=== PATIENT | female | born 1955 | race Caucasian/White ===

== ENCOUNTER 2021-06-15 07:49 | Outpatient (CLI) | payer MEDICARE, SELFPAY ==
[2021-06-15 08:05] VITALS: BP 119/75; PULSE 84; RESP 20; TEMP 36.6; O2SAT 95; BMI 36.0
[2021-06-15 08:34] VITALS: BP 102/68; PULSE 68; RESP 16; TEMP 36.7; O2SAT 96
[2021-06-15 09:39] VITALS: BP 113/75; PULSE 67; RESP 16; TEMP 36.6
== END 2021-06-15 09:39 | disposition home or self-care (01) ==
LOC: OPS 07:51
PROVIDERS: Visit Provider Hospitalist
DX: U07.1 COVID-19 (principal)
CPT/HCPCS: 96365

== ENCOUNTER 2021-12-11 10:08 | Outpatient (CLI) | payer MEDICARE, MEDICAID, SELFPAY ==
--- NOTE | 2021-12-11 10:21 | XR_ITS ---
WS: [id number] Exam: XR shoulder RT min 2V* [id number] Date/Time of Exam: 12/11/2021 10:23 AM Reason For Exam: R SHOULDER PAIN No fracture or dislocation. There are 2 anchoring screws in the humeral head. DJD and spurring at the AC joint. Normal soft tissues. XR/XR shoulder RT min 2V* [id number] IMPRESSION: 1. No fracture or dislocation. 2. Degenerative change and spurring of the inferior margin of the distal clavic le and acromion.
== END 2021-12-11 10:09 | disposition home or self-care (01) ==
LOC: RAD 10:14
PROVIDERS: PCP Nurse Practitioner Family; Visit Provider Nurse Practitioner Family
DX: M25.511 Pain in right shoulder (principal)
CPT/HCPCS: 73030

== ENCOUNTER 2022-01-21 09:27 | Emergency (ER) | payer MEDICARE, MEDICAID, SELFPAY ==
[2022-01-21 09:38] VITALS: BP 144/104; PULSE 85; RESP 18; TEMP 36.6; O2SAT 97; BMI 39.4
--- NOTE | 2022-01-21 09:40 | W.ED.GENADLT ---
HPI - General Adult General: Chief complaint: Neuro Symptoms/Deficit Stated complaint: arm weakness/trouble walking/confusion/headaches Time Seen by Provider: 01/21/22 09:40 Source: patient Mode of arrival: ambulatory Limitations: no limitations History of Present Illness: 66-year-old female presents emergency room she states she has a history of MS states also multiple previous strokes. She is convinced she had a stroke 3 days ago with the symptoms are going away she says she usually has strokes and the symptoms will go away and she just ignores them. She not had any chest pain. She does not have any focal neurologic deficits at this point she said she had some left-sided facial droop and left-sided weakness although today when she presents here none of that is present. Onset (ago): day(s) (3) Location: face, left, upper extremity and lower extremity Severity: mild Relieving factors: none Exacerbating factors: none Associated symptoms: Deny chest pain, confusion, cough, diaphoresis, decreased appetite, dyspnea, fevers/chills, headache(s), malaise, nausea, rash, palpitations, seizures, short of breath, syncope, vomiting or weakness Treatments prior to arrival: none Review of Systems Const: Denies: malaise or diaphoresis ENMT: Denies: throat pain, ear or mastoid pain, nasal discharge or nasal congestion Card: Denies: chest pain, palpitations or syncope Resp: Denies: dyspnea GI: Denies: nausea or vomiting : Denies: flank pain, difficulty voiding, dysuria, urinary frequency or urinary urgency Skin/Breast: Denies: rash Neuro: Denies: headache(s) or confusion Physical Exam Const: COMMON NORMALS: no acute distress GENERAL APPEARANCE: cooperative and comfortable ORIENTATION/CONSCIOUSNESS: Yes awake, Yes oriented to person, Yes oriented to place and Yes oriented to time HENMT: COMMON NORMALS: normocephalic, atraumatic and hearing grossly normal bilaterally HEAD & SCALP: normocephalic and atraumatic Neck/C-Spine: COMMON NORMALS: no JVD Resp: COMMON NORMALS: normal respiratory effort, No retractions, No use of accessory muscles and clear to auscultation bilaterally AUSCULTATION: clear to auscultation bilaterally Cardio: COMMON NORMALS: no JVD, regular rate, regular rhythm and No murmurs present (Cardio) RATE: regular rate RHYTHM: regular rhythm GI: COMMON NORMALS: Soft to palpation and No hepatosplenomegaly present AUSCULTATION: Yes normoactive bowel sounds PALPATION: Yes Soft to palpation, No Tenderness to palpation present (GI), No Guarding due to palpation present (GI) and Yes No hepatosplenomegaly present Extremity: COMMON NORMALS: normal to inspection, capillary refill normal, no clubbing, cyanosis or edema, no calf tenderness and no pedal edema Neuro: SENSORIUM/ORIENTATION: Yes oriented to person, Yes oriented to place and Yes oriented to time Skin: COMMON NORMALS: no rashes or lesions noted GENERAL SKIN EXAM: no rashes or lesions noted Course Vital Signs: Vital signs: Vital Signs Temperature 97.9 F 01/21/22 09:38 Pulse Rate 84 01/21/22 09:49 Respiratory Rate 16 01/21/22 09:49 Blood Pressure 144/104 01/21/22 09:49 Pulse Oximetry 98 01/21/22 09:49 [facility] - General Adult Medical Decision Making No focal neurologic deficits noted CT normal repeat exam remains completely intact with no abnormalities. We will go ahead and discharge patient home follow-up with primary care if patient is still having issues could consider advanced imaging she is already on statin and clopidogrel. Another consideration would be stopping the hormone replacement. Medical Records I reviewed the patient's medical records. Lab Data I reviewed the patient's lab results. : 01/21/22 09:44 01/21/22 10:[address] 01/21/22 09:42 IMPRESSION: 1. No evidence of intracranial hemorrhage or mass effect. 2. Mild small vessel changes. Mild parenchymal volume loss. 3. Small chronic appearing lacunar infarct RIGHT thalamus. 4. No acute intracranial findings. Laboratory Results WBC 5.5 10^3/uL (4.0-10.0) 01/21/22 09:44 RBC 3.90 10^6/uL (4.1-5.3) L 01/21/22 09:44 Hgb 13.1 g/dL (11.5-15.3) 01/21/22 09:44 Hct 38.9 % (37.0-47.0) 01/21/22 09:44 MCV 99.7 fl (81-99) H 01/21/22 09:44 MCH 33.6 pg (28.0-34.0) 01/21/22 09:44 MCHC 33.7 g/dL (30.0-36.0) 01/21/22 09:44 RDW 16.3 % (12.1-15.1) H 01/21/22 09:44 Plt Count 226 10^3/cmm (130-400) 01/21/22 09:44 MPV 10.5 fL (7.4-10.4) H 01/21/22 09:44 Neut % (Auto) 57.2 % 01/21/22 09:44 Lymph % (Auto) 32.8 % 01/21/22 09:44 Pen[place] % (Auto) 7.3 % 01/21/22 09:44 Eos % (Auto) 1.6 % 01/21/22 09:44 Baso % (Auto) 0.9 % 01/21/22 09:44 Neut # (Auto) 3.14 10^3/uL (1.8-7.7) 01/21/22 09:44 Lymph # (Auto) 1.8 10^3/uL (0.8-4.8) 01/21/22 09:44 [place] # (Auto) 0.4 10^3/uL (0.2-0.9) 01/21/22 09:44 Eos # (Auto) 0.1 10^3/uL (0.0-0.8) 01/21/22 09:44 Baso # (Auto) 0.1 10^3/uL (0.0-0.1) 01/21/22 09:44 Nucleated RBC % (auto) 0 % 01/21/22 09:44 Nucleated RBCs # 0.0 /100WBC 01/21/22 09:44 Sodium 142 mmol/L (136-145) 01/21/22 10:44 Potassium 4.2 mmol/L (3.5-5.1) 01/21/22 10:44 Chloride 109 mmol/L (98-107) H 01/21/22 10:44 Carbon Dioxide 24 mmol/L (22-29) 01/21/22 10:44 Anion Gap 13.2 (5-19) 01/21/22 10:44 BUN 27 mg/dL (8-23) H 01/21/22 10:44 Creatinine 1.1 mg/dL (0.5-0.9) H 01/21/22 10:44 GFR Calculation 50.0 mL/min (90-130) L 01/21/22 10:44 Glucose 96 mg/dL (65-115) 01/21/22 10:44 Calculated Osmolality 299 mOsm/kg (285-295) H 01/21/22 10:44 Calcium 9.6 mg/dL (8.5-10.5) 01/21/22 10:44 Total Bilirubin 0.2 mg/dL (0.15-1.2) 01/21/22 10:44 AST 19 U/L (0-32) 01/21/22 10:44 ALT 14 U/L (0-33) 01/21/22 10:44 Alkaline Phosphatase 95 IU/L (35-105) 01/21/22 10:44 Total Protein 6.9 g/dL (6.6-8.7) 01/21/22 10:44 Albumin 4.3 g/dL (3.5-5.2) 01/21/22 10:44 Globulin 2.6 g/dL (1.3-4.6) 01/21/22 10:44 Discharge Plan Discharge Patient Disposition: Home Clinical Impression: History of CVA (cerebrovascular accident) Condition: Stable Prescriptions: No Action multivitamin Tablet 1 tab PO QPM 0RF atorvastatin 40 mg tablet 40 mg PO QPM 0RF Sleep Aid (diphenhydramine) 50 mg Capsule 100 mg PO BEDTIME 0RF loperamide 2 mg capsule 2 mg PO Q4H PRN (Reason: Diarrhea) 0RF clopidogrel 75 mg tablet 75 mg PO QPM 0RF Tylenol Arthritis Pain 650 mg Tablet Extended Release 1,950 mg PO QID PRN (Reason: Pain) 0RF topiramate 25 mg capsule, sprinkle 25 mg PO QPM 0RF ropinirole 0.25 mg tablet 0.25 mg PO BEDTIME 0RF pantoprazole 40 mg tablet,delayed release (DR/EC) 40 mg PO QPM 0RF gabapentin 300 mg capsule 600 mg PO BEDTIME 0RF sertraline 25 mg tablet 25 mg PO QAM 0RF hydroxyzine HCl 25 mg tablet 25 mg PO BEDTIME 0RF metoprolol succinate 25 mg tablet extended release 24 hr 25 mg PO QPM 0RF Prempro 0.45-1.5 mg tablet 1 tab PO QPM 0RF Calcium Citrate + D 315 mg-5 mcg (200 unit) Tablet 2 tab PO QPM 0RF pregabalin 75 mg capsule 75 mg PO BID 0RF Discharge Orders: Discharge ED (Routine); Ordered 01/21/22 Ordered By: Tyler Edouard Referrals: Salma Carrasco NP [Primary Care Provider] - Patient Instructions: Opioid Safety Coding Level of Care Code ED Card Grinder for Dariusg Kevin NIH stroke score NIHSS Level Of Consciousness - 1a: 0 Level Of Consciousness Questions - 1b: Both Correct Level Of Consciousness Commands - 1c: Both Correct Best Gaze - 2: Normal Visual Fuentes - 3: No Visual Loss Facial Palsy - 4: Normal Motor Arm Right - 5: No Drift Motor Arm Left - 5: No Drift Motor Leg Right - 6: No Drift Motor Leg Left - 6: No Drift Limb Ataxia - 7: Absent Sensory - 8: Normal Best Language - 9: No Aphasia Dysarthia - 10: Normal Extinction And Inattention - 11: 0 Score Total Score: 0
--- NOTE | 2022-01-21 09:42 | CT_ITS ---
WS: [id number] CT HEAD TECHNIQUE: Noncontrast CT of the head obtained from the skullbase to the vertex. CLINICAL INFORMATION: fall/closed head injury COMPARISON: None. DLP: 1700.[address] scans at [facility] use at least one of these dose optimization techniques: automated e xposure control; mA and/or kV adjustment per patient size (includes targeted exams where dose is matc hed to clinical indication); or iterative reconstruction. FINDINGS: No evidence of intracranial hemorrhage or mass effect. Ventricular system and basal cisterns are adame nt. Mild small vessel changes with mild parenchymal volume loss. Small chronic appearing lacunar infa rct RIGHT thalamus. Intracranial vascular calcification. No extra-axial fluid collections. No evidenc e of mass or mass effect. Paranasal sinuses and mastoid air cells are well aerated. .Normal visualized soft tissues. CT/CT head wo con* [id number] IMPRESSION: 1. No evidence of intracranial hemorrhage or mass effect. 2. Mild small vessel changes. Mild parenchymal volume loss. 3. Small chronic appearing lacunar infarct RIGHT thalamus. 4. No acute intracranial findings.
[2022-01-21 09:49] VITALS: BP 144/104; PULSE 84; RESP 16; O2SAT 98
[2022-01-21 09:57] LABS: Basophils # 0.1 10^3/uL (0.0-0.1); Basophils % 0.9 %; Eosinophils # 0.1 10^3/uL (0.0-0.8); Eosinophils % 1.6 %; Hematocrit 38.9 % (37.0-47.0); Hemoglobin 13.1 g/dL (11.5-15.3); Lymphocytes # 1.8 10^3/uL (0.8-4.8); Lymphocytes % 32.8 %; Mean Corpuscular HGB Conc 33.7 g/dL (30.0-36.0); Mean Corpuscular Hemoglobin 33.6 pg (28.0-34.0); Mean Corpuscular Volume 99.7 fl (81-99); Mean Platelet Volume 10.5 fL (7.4-10.4); Monocytes # 0.4 10^3/uL (0.2-0.9); Monocytes % 7.3 %; Neutrophils # 3.14 10^3/uL (1.8-7.7); Neutrophils % 57.2 %; Nucleated Red Blood Cells % 0 %; Platelet Count 226 10^3/cmm (130-400); Red Cell Distribution Width 16.3 % (12.1-15.1); White Blood Count 5.5 10^3/uL (4.0-10.0)
--- NOTE | 2022-01-21 10:52 | ECG_ITS ---
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 Measurements Intervals [place] Rate: 74 P: 79 [place]: 179 QRS: 72 QRSD: 86 T: 48 QT: 365 QTc: 407 Interpretive Statements SINUS RHYTHM No previous ECG available for comparison Electronically Signed On 01-21-2022 22:38:47 CDT by Uriel Smith M.D. [email or web address]
[2022-01-21 11:07] LABS: Alanine Aminotransferase 14 U/L (0-33); Albumin Level 4.3 g/dL (3.5-5.2); Alkaline Phosphatase 95 IU/L (35-105); Anion Gap 13.2 (5-19); Aspartate Amino Transferase 19 U/L (0-32); Blood Urea Nitrogen 27 mg/dL (8-23); Calcium 9.6 mg/dL (8.5-10.5); Carbon Dioxide 24 mmol/L (22-29); Chloride 109 mmol/L (98-107); Globulin 2.6 g/dL (1.3-4.6); Glucose 96 mg/dL (65-115); Osmolality Calculated 299 mOsm/kg (285-295); Potassium 4.2 mmol/L (3.5-5.1); Sodium 142 mmol/L (136-145); Total Bilirubin 0.2 mg/dL (0.15-1.2); Total Protein 6.9 g/dL (6.6-8.7)
[2022-01-21 11:40] LABS: Urine Color Yellow (Yellow)
[2022-01-21 11:41] LABS: Add Urine Culture? No; Add Urine Microscopic? YES; Bilirubin Urine 1+ (Negative); Blood Urine Neg (Negative); Glucose Urine UA Norm (Normal); Ketones Urine Negative (Negative); Leukocyte Esterase Urine Negative (Negative); Nitrate Urine Negative (Negative); Protein Urine Trace (Negative); Squamous Epithelial Cell Urine 25-40 /hpf (0-5); Urine Appearance SL Hazy (CLEAR); Urobilinogen Urine Neg (Negative); pH Urine 5 (5-7)
[2022-01-21 11:49] VITALS: BP 126/73; PULSE 78; RESP 16; O2SAT 97
== END 2022-01-21 11:51 | disposition home or self-care (01) ==
PROVIDERS: Emergency Provider Family Medicine; PCP Nurse Practitioner Family
DX: R53.1 Weakness (principal); Z86.73 Personal history of transient ischemic attack (TIA), and cerebral infarction without residual deficits
CPT/HCPCS: 70450; 80053; 81001; 85025; 93005; 99283

== ENCOUNTER 2022-03-14 13:36 | Outpatient (CLI) | payer MEDICARE, MEDICAID, SELFPAY ==
--- NOTE | 2022-03-14 13:48 | USCV_ITS ---
Bianca David Age: 66 Gender: F : 1955 Exam Date: 03/14/2022 14:04 Ordering Phys: Salma Carrasco NP Technologist: Andrez Kirk Exam Location: [facility] [place] Indication: TIA/ FATIGUE Risk Factors: Previous Vascular Surgery: Right Brachial BP: / Left Brachial BP: / Right Left Velocity (cm/s) Spectral Plaque Velocity (cm/s) Spectral Plaque Syst/Diast Broadening Syst/Diast Broadening 78.00/ 21.20 Prox CCA 90.40 / 23.00 119.10/29.80 Mid CCA 74.30 / 19.70 90.40/ 29.80 Distal CCA 81.20 / 28.20 119.10/40.80 Prox ICA 53.90 / 15.00 83.80/ 34.20 Mid ICA 87.00 / 34.20 104.70/41.90 Distal ICA 88.60 / 31.80 86.20 ECA 78.50 0.70 ICA/CCA 1.17 Antegrade Vertebral Antegrade 52.00/ 14.00 cm/s 49.70/ 14.80 cm/s Tri Subclavian 77.70 73.80 FINDINGS Comparison: none available. No significant elevation of systolic or diastolic velocities. Waveforms are normal. No significant amount of calcified plaque or intimal thickening identified. CONCLUSIONS Normal carotid doppler ultrasound. Dr. Genevieve Marroquin DO (Electronically Signed) Final Date: 14 Mar 2022 16:00 S
== END 2022-03-14 13:37 | disposition home or self-care (01) ==
PROVIDERS: PCP Nurse Practitioner Family; Visit Provider Nurse Practitioner Family
DX: G45.9 Transient cerebral ischemic attack, unspecified (principal); R53.83 Other fatigue
CPT/HCPCS: 93880

== ENCOUNTER → 2022-03-19 10:03 | Outpatient (BNVA) | payer MEDICARE, MEDICAID, SELFPAY | PROVIDERS: PCP Nurse Practitioner Family; Referring Provider Nurse Practitioner Family; Visit Provider Nurse Practitioner | DX: R56.9 Unspecified convulsions (principal); I99.8 Other disorder of circulatory system; Z86.73 Personal history of transient ischemic attack (TIA), and cerebral infarction without residual deficits | CPT/HCPCS: 99204 ==

== ENCOUNTER 2022-04-23 11:48 | Outpatient (CLI) | payer MEDICARE, MEDICAID, SELFPAY ==
--- NOTE | 2022-04-23 13:00 | MR_ITS ---
WS: [id number] MRI BRAIN WITHOUT CONTRAST HISTORY: G45.9 - Transient cerebral ischemic attack, unspecified, LEFT arm tingling. Confusion. COMPARISON: CT head 01/21/2022. TECHNIQUE: Diffusion imaging, multiplanar T1, T2 and FLAIR imaging obtained. No evidence for acute infarct or hemorrhage. Mckenzie-white matter differentiation is normal. Prior lacunar infarct in the RIGHT thalamus. Moderate small vessel ischemic changes in the periventri cular white matter extending to the centrum semiovale ovale and soto radiata. No hemorrhage. Ventricles and extra-axial spaces are normal. No inferior displacement of cerebellar tonsils. The sella turcica and pituitary gland are unremarkabl e. Dural venous sinuses and [place] demonstrate no abnormality on this unenhanced studies. Paranasal sinuses: Mild mucoperiosteal thickening LEFT maxillary sinus. No air-fluid levels. Mastoid air cells: Small bilateral mastoid air cell effusions. Calvarium and scalp: Intact. MR/MR head wo con* [id number] IMPRESSION: 1. No acute infarct or hemorrhage. 2. Prior lacunar infarct RIGHT thalamus. 3. Bilateral T2 and FLAIR signal hyperintensities. More than expected for the patient's age. These findings can be seen with hypertension, diabetes, smoking history and small vessel ischemic disease.
== END 2022-04-23 11:49 | disposition home or self-care (01) ==
LOC: RAD 11:49
PROVIDERS: PCP Nurse Practitioner Family; Visit Provider Nurse Practitioner
DX: G45.9 Transient cerebral ischemic attack, unspecified (principal); I63.9 Cerebral infarction, unspecified
CPT/HCPCS: 70551

== ENCOUNTER 2022-04-23 11:49 | Outpatient (CLI) | payer MEDICAID, SELFPAY ==
--- NOTE | 2022-04-23 13:45 | MR_ITS ---
WS: [id number] MRA ANGIOGRAPHY [place] HISTORY: I63.9 - Cerebral infarction, unspecified COMPARISON: None available. TECHNIQUE: 3-D MR angiography is performed of the [place]. All images are reviewed including source images. Hypoplastic distal RIGHT vertebral artery. LEFT vertebral artery is dominant and intact. Patent basil ar artery. Posterior cerebral arteries and the posterior communicating arteries are well visualized. No aneurysms. Intracranial portion of the internal carotid arteries are normal course and caliber. No significant a therosclerosis, stenosis or aneurysm identified. Middle and anterior cerebral arteries are both paten t with no significant disease. Anterior communicating artery is also normal. MR/MR angio head wo con [id number] IMPRESSION: 1. No significant stenosis or occlusions or aneurysms involving the [place]. 2. Small caliber distal RIGHT vertebral artery is probably normal variant.
== END 2022-04-23 11:50 | disposition home or self-care (01) ==
LOC: RAD 11:49
PROVIDERS: PCP Nurse Practitioner Family; Visit Provider Nurse Practitioner
DX: G45.9 Transient cerebral ischemic attack, unspecified (principal); I63.9 Cerebral infarction, unspecified
CPT/HCPCS: 70544

== ENCOUNTER 2022-05-08 14:57 | Outpatient (CLI) | payer MEDICARE, MEDICAID, SELFPAY ==
[2022-05-08 16:34] LABS: Estmated Average Glucose 85; Hemoglobin A1C 4.6 % (4.0-6.0)
== END 2022-05-08 14:58 | disposition home or self-care (01) ==
LOC: LAB 15:03
PROVIDERS: PCP Nurse Practitioner Family; Visit Provider Nurse Practitioner
DX: G45.9 Transient cerebral ischemic attack, unspecified (principal); I63.9 Cerebral infarction, unspecified
CPT/HCPCS: 36415; 83036

== ENCOUNTER 2022-07-18 09:43 | Outpatient (CLI) | payer MEDICARE, MEDICAID, SELFPAY ==
--- NOTE | 2022-07-18 10:01 | USCV_ITS ---
Bianca David Age: 67 Gender: F : 1955 Exam Date: 07/18/2022 10:20 Ordering Phys: Dexter WillP MSN AGACNP-BC Technologist: LANEY Exam Location: [facility] [place] Indication: CVA BP: 111 / 77 HR: 69 Rhythm: Sinus Technical Quality: Adequate MEASUREMENTS (Male / Female) Normal Values 2D ECHO LV Diastolic Diameter PLAX 5.0 cm 4.2 - 5.9 / 3.9 - 5.3 cm LV Systolic Diameter PLAX 3.0 cm IVS Diastolic Thickness 1.1 cm 0.6 - 1.0 / 0.6 - 0.9 cm IVS Systolic Thickness 1.5 cm LVPW Diastolic Thickness 1.3 cm 0.6 - 1.0 / 0.6 - 0.9 cm LVPW Systolic Thickness 2.0 cm LVOT Diameter 2.0 cm LV Ejection Fraction 2D Teich 68.9 % LV Ejection Fraction MOD 2C 60.3 % LV Ejection Fraction 2C AL 62.4 % LA Diameter 3.9 cm LA Width 5.1 cm LA Height 5.4 cm RA Width 3.7 cm RA Height 4.5 cm Aorta at Sinotubular Diameter 2.4 cm IVC Diameter 1.6 cm M-MODE Aortic Annulus Diameter 2.4 cm LA Ao Ratio MM 1.5 MV E Point Septal Separation 0.4 cm DOPPLER AV Peak Velocity 138.3 cm/s LVOT Peak Velocity 87.0 cm/s AV Area Cont Eq vti 2.1 cm squared AV Area Cont Eq pk 2.0 cm squared MV Peak Velocity 101.0 cm/s MV Area PHT 2.7 cm squared Mitral E to A Ratio 1.0 MV E' Velocity 48.0 cm/s Mitral E to MV E' Ratio 7.4 Mitral E to LV E' Lateral Ratio 8.2 Mitral E to LV E' Septal Ratio 6.7 TR Peak Velocity 204.9 cm/s TR Peak Gradient 16.8 mmHg TR Mean Velocity 174.8 cm/s TR Mean Gradient 13.2 mmHg TR Velocity Time Integral 75.8 cm TV Peak E Velocity 67.0 cm/s Right Atrial Pressure 3.0 mmHg Pulmonary Artery Systolic Pressu 19.8 mmHg PV Peak Velocity 103.0 cm/s RV Acceleration Time 0.2 s RV Ejection Time 0.3 s RV AcT/ET 0.5 FINDINGS Left Ventricle Left ventricle is mildly dilated. LV systolic function is normal with EF of 55 to 60%. No regional wall motion abnormalities are seen. Right Ventricle RV is normal in size and function Right Atrium Normal in size. Bubble study performed that did not show significant intracardiac shunting Left Atrium Mildly dilated left atrium Mitral Valve Structurally normal mitral valve. Mild mitral regurgitation. Aortic Valve Structurally normal aortic valve. No significant stenosis or regurgitation. Tricuspid Valve Trace tricuspid regurgitation. Insufficient TR jet to calculate RVSP Pulmonic Valve Not well-visualized Pericardium Normal Aorta Normal in size IVC CONCLUSIONS Left ventricle is mildly dilated. LV systolic function is normal with EF of 55 to 60%. Bubble study performed that did not show any significant intracardiac shunting. Mildly dilated left atrium. Mild mitral regurgitation Trace tricuspid regurgitation No comparison studies are available Alber Wong MD (Electronically Signed) Final Date: 24 July 2022 10:43 S
== END 2022-07-18 09:44 | disposition home or self-care (01) ==
LOC: RAD 09:44
PROVIDERS: PCP Nurse Practitioner Family; Visit Provider Nurse Practitioner
DX: I63.9 Cerebral infarction, unspecified (principal); G45.9 Transient cerebral ischemic attack, unspecified; I08.1 Rheumatic disorders of both mitral and tricuspid valves
CPT/HCPCS: C8929

== ENCOUNTER 2022-10-30 10:17 | Outpatient (CLI) | payer MEDICARE, MEDICAID, SELFPAY ==
--- NOTE | 2022-10-30 10:26 | MM_ITS ---
WS: [id number] SCREENING DIGITAL BREAST TOMOSYNTHESIS MAMMOGRAM WITH CAD HISTORY: SCREENING COMPARISON: None available. Bilateral CC and MLO with tomosynthesis and synthetic mammography submitted. Computer aided detection analyzed. Breast composition: There are scattered areas of fibroglandular density. Well-circumscribed 8.4 mm ma ss mid LEFT breast at 6:00. There are additional smaller nodules in the medial LEFT breast towards 9- 10 o'clock. RIGHT breast is negative. MM/[place] [id number] IMPRESSION: BI-RADS: 0-Incomplete: Need additional imaging evaluation FOLLOW UP: Need Additional Imaging Recommendation: Ultrasound LEFT breast. Ultrasound directed to 6:00 middle dept h LEFT breast. Additional ultrasound LEFT breast 9-10 o'clock.
== END 2022-10-30 10:18 | disposition home or self-care (01) ==
PROVIDERS: PCP Nurse Practitioner Family; Visit Provider Nurse Practitioner Family
DX: Z12.31 Encounter for screening mammogram for malignant neoplasm of breast (principal)
CPT/HCPCS: 77063; 77067

== ENCOUNTER 2023-01-12 15:24 | Outpatient (CLI) | payer MEDICARE, MEDICAID, SELFPAY ==
--- NOTE | 2023-01-12 15:37 | XR_ITS ---
WS: [id number] SCREENING DEXA SCAN [employer] CLINICAL INFORMATION: ASYMTOMATIC POSTMENOPAUSAL STATE COMPARISON: None. FINDINGS: The LEFT forearm bone mineral density measures 0.863. This corresponds to a T score score of -0.2 and Z score of 1.3. Left femoral neck bone mineral density measures 1.058 g/cm2. This corresponds to a T score of 0.4 and Z score of 0.8. Right femoral neck bone mineral density measures 1.041 g/cm2. This corresponds to a T score 0.3of and Z score of 0.7. Mean femoral neck bone mineral density measures 1.050 g/cm2. This corresponds to a T score of 0.3 and Z score of 0.7. XR/XR DEXA axial skeleton* [id number] IMPRESSION: Normal bone mineralization LEFT forearm and both femurs. Patient's FRAX calculated 10 year probability for major osteoporotic fracture i s 7.0 % and osteoporotic hip fracture is 0.4%.
== END 2023-01-12 15:25 | disposition home or self-care (01) ==
PROVIDERS: PCP Nurse Practitioner Family; Visit Provider Nurse Practitioner Family
DX: Z78.0 Asymptomatic menopausal state (principal)
CPT/HCPCS: 77080

== ENCOUNTER 2023-01-28 09:16 | Outpatient (CLI) | payer MEDICARE, MEDICAID, SELFPAY ==
--- NOTE | 2023-01-28 09:35 | US_ITS ---
WS: [id number] ULTRASOUND LEFT BREAST HISTORY: Mass LEFT breast seen on mammogram. COMPARISON: 10/30/2022 mammogram. TECHNIQUE: 2-D and Doppler. There is a small hypoechoic mass which is probably a complex cyst. There is through transmission. Thi s mass measures 5 x 6 x 3 mm and corresponds in size and location to the mammographic abnormality. US/US breast LT limited* [id number] IMPRESSION: BI-RADS: 2-Benign FOLLOW-UP: 1 Year Follow-up Return to annual screening mammography.
== END 2023-01-28 09:17 | disposition home or self-care (01) ==
LOC: RAD 09:22
PROVIDERS: PCP Nurse Practitioner Family; Visit Provider Nurse Practitioner Family
DX: N63.20 Unspecified lump in the left breast, unspecified quadrant (principal)
CPT/HCPCS: 76642

== ENCOUNTER 2023-10-05 10:14 | Outpatient (CLI) | payer MEDICARE, MEDICAID, SELFPAY ==
--- NOTE | 2023-10-05 10:23 | CT_ITS ---
WS: [id number] CT ABDOMEN AND PELVIS NONCONTRAST HISTORY: L FLANK PAIN/ABDOMINAL PAIN TECHNIQUE: Imaging performed through the abdomen and pelvis. Coronal and sagittal reformats are submi tted. All CT scans at [facility] use at least one of these dose optimization techniques: auto mated exposure control; mA and/or kV adjustment per patient size (includes targeted exams where dose is matched to clinical indication); or iterative reconstruction. DLP: 487.33 mGy.cm COMPARISON: None available. Lower thorax: Normal size heart. Lungs are clear. Gastric bypass changes. Liver: Liver is normal size. Heterogeneity within the liver is probably related to areas of hepatic s teatosis and sparing. No discrete mass. The common bile duct is moderately dilated measuring up to 1. 2 cm. Normal tapering towards the ampulla. No calcification within the common bile duct. This wall ma y be physiologic and related to the cholecystectomy. Gallbladder: Prior cholecystectomy. Pancreas: Normal size and attenuation. Normal pancreatic duct. No pancreatitis or mass. Spleen: Normal size with granulomata. Adrenal glands: Normal. No mass. Right kidney: Normal size kidney. No calcifications. Lower pole cyst measuring 2.6 cm. No obstruction . Left kidney: Normal size kidney. Indeterminate mass extending exophytic from the mid kidney measures 1.8 cm. No obstruction. Aorta: Mild atherosclerosis abdominal aorta with no aneurysm. No free fluid, intraperitoneal air or significant lymphadenopathy. GI tract: Prior surgical changes of a gastric bypass. No GI tract obstruction. The appendix is normal . No significant diverticular disease. Abdominal wall: Large ventral abdominal wall hernia contains fat only. Orifice of the hernia is 2.5 c m. Pelvis: No free fluid or adenopathy. Osseous structures: Mild increase in the lumbar lordosis. 2 mm anterolisthesis of L4. IMPRESSION: 1. Prior cholecystectomy. 2. Dilated common bile duct 1.2 cm. Probably related to the cholecystectomy state. 3. Bilateral low-attenuation renal masses. These may be cysts. Cannot further evaluate further with a noncontrast exam. 4. Moderate-sized ventral abdominal wall hernia contains fat only. 5. No LEFT lower quadrant abnormality.
== END 2023-10-05 10:15 | disposition home or self-care (01) ==
PROVIDERS: PCP Nurse Practitioner Family; Visit Provider Family Medicine
DX: R10.9 Unspecified abdominal pain (principal); K43.9 Ventral hernia without obstruction or gangrene; Z90.49 Acquired absence of other specified parts of digestive tract; K83.8 Other specified diseases of biliary tract; N28.89 Other specified disorders of kidney and ureter
CPT/HCPCS: 74176

== ENCOUNTER 2023-10-28 14:30 | Emergency (ER) | payer MEDICARE, MEDICAID, SELFPAY ==
[2023-10-28 14:31] VITALS: BP 119/55; PULSE 68; RESP 18; TEMP 36.8; O2SAT 100; BMI 29.1
--- NOTE | 2023-10-28 14:37 | ECG_ITS ---
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 Measurements Intervals [place] Rate: 64 P: 63 [place]: 163 QRS: 48 QRSD: 90 T: 53 QT: 429 QTc: 443 Interpretive Statements SINUS RHYTHM Compared to ECG 01/21/2022 10:59:43 No significant changes Electronically Signed On 10-28-2023 18:56:26 CANE PUSHER by Alber Wong M.D. [id number] f
--- NOTE | 2023-10-28 15:12 | XRR_ITS ---
PROCEDURE INFORMATION: Exam: XR Chest Exam date and time: 10/28/2023 3:18 PM Age: 68 years old Clinical indication: Pain; Angina pectoris; Additional info: Chest pain TECHNIQUE: Imaging protocol: Radiologic exam of the chest. Views: 1 view. COMPARISON: CT abdomen pelvis con [id number] 10/05/2023 10:43 AM FINDINGS: Lungs: Unremarkable. No consolidation. Pleural spaces: Unremarkable. No pleural effusion. No pneumothorax. Heart/Mediastinum: Unremarkable. No cardiomegaly. Bones/joints: Unremarkable. XR/XR chest 1V portable [id number] IMPRESSION: No acute findings.
[2023-10-28 15:18] LABS: Basophils # 0.1 10^3/uL (0.0-0.1); Basophils % 0.9 %; Eosinophils # 0.2 10^3/uL (0.0-0.8); Eosinophils % 2.9 %; Hematocrit 35.2 % (36-47); Lymphocytes # 1.8 10^3/uL (0.8-4.8); Lymphocytes % 27.9 %; Mean Corpuscular HGB Conc 34.4 g/dL (30-55); Mean Corpuscular Hemoglobin 30.4 pg (27-33); Mean Corpuscular Volume 88.4 fl (85-98); Mean Platelet Volume 11.3 fL (7.4-10.4); Monocytes # 0.3 10^3/uL (0.2-0.9); Monocytes % 5.3 %; Neutrophils # 4.06 10^3/uL (1.8-7.7); Neutrophils % 62.8 %; Nucleated Red Blood Cells % 0 %; Platelet Count 220 10^3/cmm (157-399); Red Blood Count 3.98 10^6/uL (3.85-5.65); Red Cell Distribution Width 17.5 % (12.1-15.1); White Blood Count 6.46 10^3/uL (3.29-11.43)
[2023-10-28 15:33] LABS: Troponin(5th) Baseline 13 ng/L (0-10)
[2023-10-28 15:38] LABS: Alanine Aminotransferase 42 U/L (0-33); Albumin Level 4.2 g/dL (3.5-5.2); Alkaline Phosphatase 132 U/L (35-105); Anion Gap 13.9 (5-19); Aspartate Amino Transferase 89 U/L (0-32); Blood Urea Nitrogen 14 mg/dL (8-23); Calcium 9.7 mg/dL (8.5-10.5); Carbon Dioxide 24 mmol/L (22-29); Chloride 107 mmol/L (98-107); Globulin 2.2 g/dL (1.3-4.6); Glomerular Filtration Rate 49.7 mL/min (90-130); Glucose 87 mg/dL (65-115); NT Pro B Type Natriuretic Pept 365 pg/mL (0-125); Osmolality Calculated 292 mOsm/kg (285-295); Potassium 3.9 mmol/L (3.5-5.1); Sodium 141 mmol/L (136-145); Total Bilirubin 0.5 mg/dL (0.15-1.2); Total Protein 6.4 g/dL (6.6-8.7)
[2023-10-28 15:52] VITALS: BP 121/69; PULSE 66; RESP 18; O2SAT 98
--- NOTE | 2023-10-28 16:05 | ED_ITS ---
HPI - Chest Pain 2 General: Chief Complaint: Chest Pain Stated Complaint: Chest pain Time Seen by Provider: 10/28/23 14:39 History of Present Illness: 68-year-old female presents to the emerg ency department for discomfort in the low chest region. She says it seems to move around. Sometimes she experiences in the right low chest sometimes in the central chest and sometimes even the left lateral chest. She had 2 episodes today. The last one was at 1:00. It lasted just a few minutes. She reports she had some nitro from her sister who has coronary artery disease and she took it. It seemed to correlate with the resolution of her pain. Concurrent symptoms include nausea but no jaw pain, arm pain, back pain, lightheadedness, palpitations, near-syncope, diaphoresis. She does not have any diagnosis of coronary artery disease as far as she knows. She has not had any recurrence of the discomfort. She does have a history of gastric bypass and gastric bypass revision. She reports she has chronic indigestion and upper GI problems so she is never sure whether it is her heart or not. She does take pantoprazole for indigestion as well as intermittent Pepto-Bismol. She reports she intermittently has had dark stools for years. As far she knows she has never been diagnosed with a GI bleed. She has not looked at her stool lately. She does take Plavix. Currently she reports no symptoms. Patient does report intermittent chronic diarrhea. She takes loperamide when it gets out of control. She denies any recent antibiotic use. She reports she always has some discomfort in her upper abdomen but nothing new or changed. Associated symptoms: Deny abdominal pain, dyspnea, fever(s), syncope or vomiting Review of Systems 2 General: Reports: 10 or more systems reviewed and unremarkable except in HPI and below Const: Denies: fever(s), chills or body aches Eyes: Denies: change in vision ENMT: Denies: throat pain Card: Denies: chest pain, edema or syncope Resp: Denies: dyspnea or productive cough GI: Denies: abdominal pain or vomiting : Denies: flank pain, dysuria or urinary frequency Musc: Denies: neck pain, back pain, extremity pain or extremity swelling Skin/Breast: Denies: rash or erythema Neuro: Denies: headache(s), numbness in extremities, weakness in extremities, lack of coordination or difficulty walking PFSH ED 2 PFSH: Medical History (Updated 10/28/23 @ 18:45 by Sotero Schofield MD) CVA (cerebral vascular accident) TIA (transient ischemic attack) Psychiatric care Social History (Updated 09/15/22 @ 12:19 by Renny Mohan LPN) Smoking and tobacco/nicotine status: former use of tobacco/nicotine Quit status (tobacco/nicotine): has quit using Year quit tobacco: 1989 Second hand smoke exposure: No Alcohol intake: former Year of sobriety/quit date alcohol: 1991 Substance/Drug Use: former Physical Exam 2 Const: COMMON NORMALS: no limitations, alert and well nourished EXAM LIMITATIONS: no altered mental status HENMT: COMMON NORMALS: normocephalic, atraumatic and external ears normal H EAD & SCALP: normocephalic and atraumatic EXTERNAL EAR: Yes external ears normal MOUTH: no muffled voice Eye: COMMON NORMALS: EOMs intact bilaterally, conjunctivae normal and no scleral icterus CONJUNCTIVA: Yes conjunctivae normal Neck/C-Spine: COMMON NORMALS: no JVD GENERAL: Yes normal visual inspection and Yes trachea midline Resp: COMMON NORMALS: normal respiratory effort, No use of accessory muscles and clear to auscultation bilaterally AUSCULTATION: clear to auscultation bilaterally Cardio: COMMON NORMALS: no JVD, regular rate and regular rhythm RATE: r egular rate RHYTHM: regular rhythm GI: COMMON NORMALS: Soft to palpation PALPATION: Yes Soft to palpation and No Guarding due to palpation present (GI) OTHER: Minimal tenderness diffuse upper abdomen. Soft, nondistended, no guarding. Extremity: COMMON NORMALS: normal to inspection Neuro: COMMON NORMALS: moves all extremities, no focal motor deficits and no sensory deficits noted SENSORIUM/ORIENTATION: Yes alert SPEECH: speech normal Psych: COMMON NORMALS: mental status grossly normal, Normal thought process present, cooperative, normal affect and speech normal SPEECH: Yes normal speech THOUGHT PROCESS: Normal thought process present Skin: COMMON NORMALS: turgor normal, no jaundice and no petechiae GENERAL SKIN EXAM: turgor normal OTHER: Pale Course 2 Vital Signs: Vital signs: Vital Signs Temperature 98.2 F 10/28/23 14:31 Pulse Rate 69 10/28/23 18:43 Respiratory Rate 18 10/28/23 18:43 Blood Pressure 133/76 10/28/23 18:43 Pulse Oximetry 97 10/28/23 18:43 Oxygen Delivery Me thod Room Air 10/28/23 17:47 MDM - Chest Pain Medical Decision Making 68-year-old female presents with episodes of chest discomfort. She had 2 episodes today and reports had 2 episodes a few weeks ago and another episode several weeks before that. The symptoms seem atypical for cardiac etiology. She does have a positive family history for coronary artery disease. Personal risk factors include hyperlipidemia, hypertension, history of CVA. She has no signs or symptoms of pulmonary embolism. She endorses mild tenderness when I palpate her upper abdomen but she does not guard; she notes that she always has mild tenderness in this area. It is relevant that she has had remote gastric bypass. She also suffers from indigestion. All of these things must be taken into consideration. She does not have her gallbladder. Plan to obtain EKG, troponin, CBC, CMP, lipase, chest x-ray. Update 1600 EKG obtained at 1437. EP interpretation: The EKG shows a sinus rhythm, QRS duration 90 ms, no concerning ST segment elevations or depressions, no ectopy, and no signs of any ischemia. Chest x-ray one-view portable upright EP interpretation: Normal cardiomediastinal silhouette, no infiltrates, no pneumothorax, no effusions. Initial troponin is 13. Since this happened at 1:00, we will go ahead and obtain a delta troponin. The patient did have slightly elevated alkaline phosphatase, AST, ALT, BNP but a normal T. bili. This would suggest more of hepatic congestion or primary hepatic inflammation over obstructive pattern. I repalpated her abdomen in this area and she reports it is no more tender than it usually is and again has no guarding and allows multiple repeat palpation attempts. Low suspicion for acute surgical or infectious etiology. At this time I do not plan to order any ultrasound or CT imaging. Delta troponin stable. Chest x-ray without any cardiomegaly, effusions, pneumothorax, infiltrates. The patient's transaminitis appears to be relatively new. Patient is stable for discharge however I am going to asked that she do a follow-up in 3 to 7 days to repeat her LFTs. Update 1845 Patient has been without any chest discomfort here in the emergency department on reassessment she has no symptoms. I explained all of her findings. She reports she already has an appointment with her PCP tomorrow. She can asked PCP to consider scheduling a repeat CMP on Thursday and to place order for stress test if they believe it is still indicated. Lab Data 10/28/23 14:42 10/28/23 14:42 Radiology Impressions Chest X-Ray 10/28/23 15:12 IMPRESSION: No acute findings. Laboratory Results WBC 6.46 10^3/uL (3.29-11.43) 10/28/23 14:42 RBC 3.98 10^6/uL (3.85-5.65) 10/28/23 14:42 Hgb 12.10 g/dL (11.27-16.99) 10/28/23 14:42 Hct 35.2 % (36-47) L 10/28/23 14:42 MCV 88.4 fl (85-98) 10/28/23 14:42 MCH 30.4 pg (27-33) 10/28/23 14:42 MCHC 34.4 g/dL (30-55) 10/28/23 14:42 RDW 17.5 % (12.1-15.1) H 10/28/23 14:42 Plt Count 220 10^3/cmm (157-399) 10/28/23 14:42 MPV 11.3 fL (7.4-10.4) H 10/28/23 14:42 Neut % (Auto) 62.8 % 10/28/23 14:42 Lymph % (Auto) 27.9 % 10/28/23 14:42 [place] % (Auto) 5.3 % 10/28/23 14:42 Eos % (Auto) 2.9 % 10/28/23 14:42 Baso % (Auto) 0.9 % 10/28/23 14:42 Neut # (Auto) 4.06 10^3/uL (1.8-7.7) 10/28/23 14:42 Lymph # (Auto) 1.8 10^3/uL (0.8-4.8) 10/28/23 14:42 [place] # (Auto) 0.3 10^3/uL (0.2-0.9) 10/28/23 14:42 Eos # (Auto) 0.2 10^3/uL (0.0-0.8) 10/28/23 14:42 Baso # (Auto) 0.1 10^3/uL (0.0-0.1) 10/28/23 14:42 Nucleated RBC % (auto) 0 % 10/28/23 14:42 Nucleated RBCs # 0.0 /100WBC 10/28/23 14:42 Sodium 141 mmol/L (136-145) 10/28/23 14:42 Potassium 3.9 mmol/L (3.5-5.1) 10/28/23 14:42 Chloride 107 mmol/L (98-107) 10/28/23 14:42 Carbon Dioxide 24 mmol/L (22-29) 10/28/23 14:42 Anion Gap 13.9 (5-19) 10/28/23 14:42 BUN 14 mg/dL (8-23) 10/28/23 14:42 Creatinine 1.1 mg/dL (0.5-0.9) H 10/28/23 14:42 GFR Calculation 49.7 mL/min (90-130) L 10/28/23 14:42 Glucose 87 mg/dL (65-115) 10/28/23 14:42 Calculated Osmolality 292 mOsm/kg (285-295) 10/28/23 14:42 Calcium 9.7 mg/dL (8.5-10.5) 10/28/23 14:42 Total Bilirubin 0.5 mg/dL (0.15-1.2) 10/28/23 14:42 AST 89 U/L (0-32) H 10/28/23 14:42 ALT 42 U/L (0-33) H 10/28/23 14:42 Alkaline Phosphatase 132 U/L (35-105) H 10/28/23 14:42 Troponin T Baseline 13 ng/L (0-10) H 10/28/23 14:42 Troponin T 120 Minute 9.78 ng/L (0-10) 10/28/23 16:38 Delta Troponin T -3.22 ABS# (0-10) L 10/28/23 16:38 NT-Pro-B Natriuret Pep 365 pg/mL (0-125) H 10/28/23 14:42 Total Protein 6.4 g/dL (6.6-8.7) L 10/28/23 14:42 Albumin 4.2 g/dL (3.5-5.2) 10/28/23 14:42 Globulin 2.2 g/dL (1.3-4.6) 10/28/23 14:42 Lipase 24 U/L (13-60) 10/28/23 14:42 All radiology interpretation(s) finalized by discharge Discharge Plan Discharge Patient Disposition: Home Clinical Impression: Chest pain at rest, Transaminitis Condition: Stable Prescriptions: No Action tizanidine 4 mg capsule 4 mg PO BID PRN (Reason: Spasms) trazodone 50 mg tablet 150 mg PO BEDTIME Phazyme 180 mg Capsule 180 mg PO DAILY PRN (Reason: Gastrointestinal Spasms Or Cramping) Zoloft 100 mg tablet 200 mg PO QPM Rx Instructions: Take 1 1/2 tabs daily for two weeks then increase to two tabs daily hydroxyzine HCl 50 mg tablet See Rx Instructions .ROUTE .COMPLEX PRN (Reason: insomnia) Rx Instructions: 50 mg orally during the day and 2 tablets at bedtime as needed atorvastatin 40 mg tablet 40 mg PO QPM loperamide 2 mg capsule 2 mg PO Q4H PRN (Reason: Diarrhea) clopidogrel 75 mg tablet 75 mg PO QPM acetaminophen [Tylenol Arthritis Pain] 650 mg Tablet Extended Release 1,950 mg PO QID PRN (Reason: Pain) topiramate 25 mg capsule, sprinkle 25 mg PO QPM ropinirole 0.25 mg tablet 0.25 mg PO BEDTIME pantoprazole 40 mg tablet,delayed release (DR/EC) 40 mg PO QPM metoprolol succinate 25 mg tablet extended release 24 hr 25 mg PO QPM Discharge Orders: Discharge ED (Routine); Ordered 10/28/23 Ordered By: Sotero Schofield Referrals: Salma Carrasco NP [Primary Care Provider] - 10/29/23 (Patient will need a repeat CMP, a good time would be next Thursday the . She had slightly elevated AST, ALT, alkaline phosphatase today. She is on a statin. Unsure if these things are related. She is also having episodes of chest pain. They seem atypical but she has risk factors. Please consider stress testing or referral to cardiology.) Patient Instructions: Chest Pain (ED), Pain Management Activity Restrictions/Additional Instructions: Please follow-up with your doctor tomorrow. Consider doing a repeat comprehensive metabolic panel next November 02. Talk to your doctor about the risk benefits and alternatives of doing a stress test for further evaluation of your chest discomfort. You may also consider doing echocardiogram. Alternatively, you could be referred to cardiology and have them decide which test would be best for you. Read all of the handouts, if you have new worsening or emergent symptoms return to the ER. Coding Level of Care Code ED Certified Genetic Counselor for Barbara Brown
[2023-10-28 16:08] LABS: Lipase 24 U/L (13-60)
--- NOTE | 2023-10-28 17:12 | ECG_ITS ---
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 Measurements Intervals [place] Rate: 70 P: 54 DC: 168 QRS: 41 QRSD: 89 T: 55 QT: 401 QTc: 434 Interpretive Statements SINUS RHYTHM Compared to ECG 10/28/2023 14:37:15 No significant changes Electronically Signed On 10-28-2023 18:59:09 SURFACE TO [employer] OFFICER by Alber Wong M.D. [id number]
[2023-10-28 17:26] LABS: Troponin 5 2HR 9.78 ng/L (0-10)
[2023-10-28 17:27] LABS: Troponin 5 2HR Delta -3.22 ABS# (0-10)
[2023-10-28 17:47] VITALS: BP 136/80; PULSE 81; RESP 18; O2SAT 98
[2023-10-28 18:43] VITALS: BP 133/76; PULSE 69; RESP 18; O2SAT 97
== END 2023-10-28 18:52 | disposition home or self-care (01) ==
PROVIDERS: Emergency Provider Emergency Medicine; PCP Nurse Practitioner Family
DX: R07.89 Other chest pain (principal); R74.01 Elevation of levels of liver transaminase levels; Z79.02 Long term (current) use of antithrombotics/antiplatelets; Z86.73 Personal history of transient ischemic attack (TIA), and cerebral infarction without residual deficits; Z87.891 Personal history of nicotine dependence
CPT/HCPCS: 36415; 71045; 80053; 83690; 83880; 84484; 85025; 93005; 99285

== ENCOUNTER 2023-12-08 09:59 | Outpatient (CLI) | payer MEDICARE, MEDICAID, SELFPAY ==
[2023-12-08 11:15] VITALS: BMI 30.9
--- NOTE | 2023-12-08 11:49 | ECG_ITS ---
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 Interpretive Statements NAME OF STUDY: LEXISCAN SESTAMIBI STRESS TEST INDICATION: Chest Pain PROCEDURE: At the baseline, the EKG revealed normal sinus rhythm with a normal ST Ts. The baseline heart was 62 bpm with a blood pressue of 115/68 mm of Hg Lexiscan was infused over a period of 20 seconds. A total of 0.4 milligrams of Lexiscan was infused. The stress phase was continued for a total of 5 minutes. Heart rate at the end of the stress phase was 69 bpm with a blood pressure 115/68 mm of Hg. The EKG at the peak infusion revealed no significant changes. Sestamibi was injected 20 seconds after the Lexiscan infusion. Heart rate at the end of the recovery phase was 70 bpm with a blood pressure of 117/67 mm of Hg. CONCLUSION: 1. No significant EKG changes with the LexiScan infusion 2. No LexiScan induced chest pain or cardiac arrhythmia 3. Normal blood pressure and heart rate response 4. Sestamibi/sestamibi perfusion scan pending; see separate report. Electronically Signed On 12-12-2023 14:41:16 PLC CONTROLS ENGINEER by Uriel Smith M.D. [id number]
--- NOTE | 2023-12-08 11:50 | NMCV_ITS ---
NM george perf SPECT r/s* [id number] Bianca David Age: 68 Gender: F : 1955 Exam Date: 12/08/2023 12:08 Ordering Phys: Salma Carrasco NP Technologist: GIANFRANCO Lewis Exam Location: [facility] Indications: CHEST PAIN STRESS TEST Please see separate stress test report in [facility] for full findings IMAGE PROTOCOL Rest/Stress 1 Lexiscan Day Radiopharmaceutical Dose (mCi) Administration Site Administered by Rest: Tc-99m 10.8 IV GIANFRANCO Inman Sestamibi Stress:Tc-99m 32.8 IV GIANFRANCO Lewis Sestamikamala Rest: 08-Dec-2023 60 Discovery 630 Stress: 08-Dec-2023 30 Discovery 630 0.4mg Lexiscan. Images obtained in supine and prone position. SPECT RESULTS Technical Quality: Excellent Raw Data Analysis: Normal Image Corrections: No attenuation or motion correction applied Summed Stress Score: 0 Summed Rest Score: 4 Summed Difference Score: 0 PERFUSION FINDINGS Fairly uniform myocardial tracer uptake with no significant perfusion abnormalities. Attenuation artifacts are noted during the rest imaging FUNCTIONAL RESULTS (calculated via Gated SPECT) Stress Image LV EF (%): 72 Stress EDV (mL):81 TID: 1.02 Stress ESV (mL):23 FUNCTIONAL FINDINGS: Segmental wall motion analysis revealing no gross wall motion abnormalities IMPRESSIONS 1. Unremarkable Myocardial perfusion imaging 2. Normal ejection fraction 72%. 3. LV wall motion analysis revealing no gross wall motion abnormalities. 4. Normal LV volume Low probability for coronary ischemia, based on the above findings Dr Uriel Smith MD FACC (Electronically Signed) Final Date: 08 December 2023 21:06 S
[2023-12-08] MEDS: regadenoson 0.4 Mg/5 ml Syringe 0.400000000000000022 MG IVP (12:55)
[2023-12-08 13:06] VITALS: BP 132/68; PULSE 68
== END 2023-12-08 10:00 | disposition home or self-care (01) ==
LOC: CDL 10:02
PROVIDERS: PCP Nurse Practitioner Family; Visit Provider Nurse Practitioner Family
DX: R07.9 Chest pain, unspecified (principal)
CPT/HCPCS: 36415; 78452; 93017; 96374; A9500; J2785

== ENCOUNTER 2023-12-25 00:18 | Emergency (ER) | payer MEDICARE, MEDICAID, SELFPAY ==
[2023-12-25] VITALS (11 sets, daily range): BP systolic 87–144; BP diastolic 48–76; PULSE 72–81; RESP 18; TEMP 36.3; O2SAT 93–96; BMI 30.9
--- NOTE | 2023-12-25 00:28 | ED_ITS ---
HPI - Abdominal Pain 2 General: Chief Complaint: Abdominal Pain Stated Complaint: ABD Pain N/V Time Seen by Provider: 12/25/23 00:23 History of Present Illness: Patient presents to the ER by EMS with complaints of upper abdominal pain that radiates to her back. This pain started a couple hours ago. Patient noticed that earlier today she ate some vegetables had of a cane that was in October 2022 and does not know if this has anything to do with it. Patient does have nausea and vomiting. Patient is never had pain like this before. Patient does have fibromyalgia. Patient denies any fever chills cough cold sore throats diarrhea constipation Review of Systems 2 General: Reports: 10 or more systems reviewed and unremarkable except in HPI and below PFSH ED 2 PFSH: Medical History CVA (cerebral vascular accident) TIA (transient ischemic attack) Psychiatric care Social History Smoking and tobacco/nicotine status: former use of tobacco/nicotine Quit status (tobacco/nicotine): has quit using Year quit tobacco: 1989 Second hand smoke exposure: No Alcohol intake: former Year of sobriety/quit date alcohol: 1991 Substance/Drug Use: former Physical Exam 2 Const: COMMON NORMALS: no acute distress, average body habitus, patient oriented x3, no limitations, healthy appearing, alert and well nourished HENMT: COMMON NORMALS: normocephalic, atraumatic, hearing grossly normal bilaterally, external ears normal, Normal external nose present, moist oral mucous membranes and oropharynx normal HEAD & SCALP: normocephalic and atraumatic NOSE: Normal external nose present EXTERNAL EAR: Yes external ears normal Neck/C-Spine: COMMON NORMALS: no JVD Chest: COMMONS NORMALS: normal inspection of the chest and normal palpation of entire chest wall Resp: COMMON NORMALS: normal respiratory effort, No retractions, No use of accessory muscles and clear to auscultation bilaterally AUSCULTATION: clear to auscultation bilaterally Cardio: COMMON NORMALS: no JVD, regular rate, regular rhythm, S1 normal heart sound present, S2 normal heart sound present, No gallops present (Cardio), No clicks present (Cardio), No murmurs present (Cardio) and No rub (Cardio) R ATE: regular rate RHYTHM: regular rhythm HEART SOUNDS: S1 normal heart sound present and S2 normal heart sound present GI: COMMON NORMALS: Normal to inspection, nondistended, normoactive bowel sounds present, Soft to palpation, No hepatosplenomegaly present and no masses; negative for non-tender (Mildly tender to palpate over upper abdominal region worse epigastric) PALPATION: Yes Soft to palpation and Yes No hepatosplenomegaly present Neuro: COMMON NORMALS: patient oriented x3 SENSORIUM/ORIENTATION: Yes alert Course 2 Vital Signs: Vital signs: Vital Signs Temperature 97.4 F L 12/25/23 00:18 Pulse Rate 78 12/25/23 04:15 Respiratory Rate 18 12/25/23 00:18 Blood Pressure 110/66 12/25/23 04:15 Pulse Oximetry 95 12/25/23 04:15 Oxygen Delivery Me thod Room Air 12/25/23 00:18 MDM - Abdominal Pain Medical Decision Making Patient has lab work that was performed that revealed a slightly increase in her BUN/creatinine of 26 and 1.6, white count was 10.27 mildly elevated liver enzymes with AST of 85 ALT of 41 and alk phos of 144, urinalysis was negative for infection, lipase was markedly elevated at 5378, a contrasted CT scan of the abdomen pelvis was obtained which showed no evidence of pancreatitis but did show findings suggestive of enteritis without overt obstruction. These results was discussed with the patient as well as possible admission versus discharge going home. Patient chose to try this on an outpatient basis with pain medicine, nausea medicine and antibiotics. Patient is well aware that she may have increasing pain and eventually have to come back and be placed inpatient she is okay with this and will take her risk. Differential Diagnosis Likely abdominal pain and gastroenteritis; Unlikely acute appendicitis, calculus of kidney, constipation, diverticulitis, endometriosis, pancreatitis or small bowel obstruction Medical Records I reviewed the patient's medical records. Lab Data I reviewed the patient's lab results. 12/25/23 00:21 12/25/23 00:21 Labs/Radiology: Radiology Impressions Abdomen/Pelvis CT 12/25/23 02:[address]: 1[address] imaging evidence for pancreatitis. 2. Findings suggest possible enteritis without overt obstruction. 3. Additional nonacute findings as above. COMMENTS: Consistent with the [employer]'s Incidental Findings Committee white paper (J Am Freida Radiol 2018): Any incidental renal lesion less than 1 cm or classified as too small to characterize, or any incidental cystic renal lesion characterized as simple-appearing, is likely benign. No follow-up imaging is recommended for these lesions per consensus recommendations based on imaging criteria. Laboratory Results WBC 10.27 10^3/uL (3.29-11.43) 12/25/23 00:21 RBC 3.86 10^6/uL (3.85-5.65) 12/25/23 00:21 Hgb 11.80 g/dL (11.27-16.99) 12/25/23 00:21 Hct 35.0 % (36-47) L 12/25/23 00:21 MCV 90.7 fl (85-98) 12/25/23 00:21 MCH 30.6 pg (27-33) 12/25/23 00:21 MCHC 33.7 g/dL (30-55) 12/25/23 00:21 RDW 17.0 % (12.1-15.1) H 12/25/23 00:21 Plt Count 216 10^3/cmm (157-399) 12/25/23 00:21 MPV 10.9 fL (7.4-10.4) H 12/25/23 00:21 Neut % (Auto) 82.1 % 12/25/23 00:21 Lymph % (Auto) 11.7 % 12/25/23 00:21 Wayne % (Auto) 3.6 % 12/25/23 00:21 Eos % (Auto) 1.8 % 12/25/23 00:21 Baso % (Auto) 0.5 % 12/25/23 00:21 Neut # (Auto) 8.44 10^3/uL (1.8-7.7) H 12/25/23 00:21 Lymph # (Auto) 1.2 10^3/uL (0.8-4.8) 12/25/23 00:21 Wayne # (Auto) 0.4 10^3/uL (0.2-0.9) 12/25/23 00:21 Eos # (Auto) 0.2 10^3/uL (0.0-0.8) 12/25/23 00:21 Baso # (Auto) 0.1 10^3/uL (0.0-0.1) 12/25/23 00:21 Nucleated RBC % (auto) 0 % 12/25/23 00:21 Nucleated RBCs # 0.0 /100WBC 12/25/23 00:21 Sodium 140 mmol/L (136-145) 12/25/23 00:21 Potassium 4.4 mmol/L (3.5-5.1) 12/25/23 00:21 Chloride 104 mmol/L (98-107) 12/25/23 00:21 Carbon Dioxide 24 mmol/L (22-29) 12/25/23 00:21 Anion Gap 16.4 (5-19) 12/25/23 00:21 BUN 26 mg/dL (8-23) H 12/25/23 00:21 Creatinine 1.6 mg/dL (0.5-0.9) H 12/25/23 00:21 GFR Calculation 32.2 mL/min (90-130) L 12/25/23 00:21 Glucose 119 mg/dL (65-115) H 12/25/23 00:21 Calculated Osmolality 296 mOsm/kg (285-295) H 12/25/23 00:21 Calcium 9.4 mg/dL (8.5-10.5) 12/25/23 00:21 Total Bilirubin 0.4 mg/dL (0.15-1.2) 12/25/23 00:21 AST 85 U/L (0-32) H 12/25/23 00:21 ALT 41 U/L (0-33) H 12/25/23 00:21 Alkaline Phosphatase 144 U/L (35-105) H 12/25/23 00:21 Total Protein 6.8 g/dL (6.6-8.7) 12/25/23 00:21 Albumin 4.4 g/dL (3.5-5.2) 12/25/23 00:21 Globulin 2.4 g/dL (1.3-4.6) 12/25/23 00:21 Lipase 5378 U/L (13-60) H 12/25/23 00:21 Urine Color Yellow (Yellow) 12/25/23 01:48 Urine Appearance Clear (CLEAR) 12/25/23 01:48 Urine pH 5 (5-7) 12/25/23 01:48 Ur Specific [place] 1.025 (1.005-1.030) 12/25/23 01:48 Urine Protein Neg (Negative) 12/25/23 01:48 Urine Glucose (UA) Norm (Normal) 12/25/23 01:48 Urine Ketones Negative (Negative) 12/25/23 01:48 Urine Blood Neg (Negative) 12/25/23 01:48 Urine Nitrate Negative (Negative) 12/25/23 01:48 Urine Bilirubin 1+ (Negative) H 12/25/23 01:48 Urine Urobilinogen Neg mg/dL (Negative) 12/25/23 01:48 Ur Leukocyte Esterase Negative (Negative) 12/25/23 01:48 All radiology interpretation(s) finalized by discharge Discharge Plan Discharge Patient Disposition: Home Clinical Impression: Enteritis, Abdominal pain, acute, epigastric, Elevated lipase Condition: Stable Prescriptions: New hydrocodone-acetaminophen 5-325 mg tablet 1 tab PO Q6H PRN (Reason: pain) Qty: 14 0RF ondansetron HCl 4 mg tablet 4 mg PO Q8H PRN (Reason: nausea and vomiting) Qty: 14 0RF ciprofloxacin HCl 500 mg tablet 500 mg PO Q12H Qty: 20 0RF No Action tizanidine 4 mg capsule 4 mg PO BID PRN (Reason: Spasms) trazodone 50 mg tablet 150 mg PO BEDTIME Phazyme 180 mg Capsule 180 mg PO DAILY PRN (Reason: Gastrointestinal Spasms Or Cramping) Zoloft 100 mg tablet 200 mg PO QPM Rx Instructions: Take 1 1/2 tabs daily for two weeks then increase to two tabs daily hydroxyzine HCl 50 mg tablet See Rx Instructions .ROUTE .COMPLEX PRN (Reason: insomnia) Rx Instructions: 50 mg orally during the day and 2 tablets at bedtime as needed atorvastatin 40 mg tablet 40 mg PO QPM loperamide 2 mg capsule 2 mg PO Q4H PRN (Reason: Diarrhea) clopidogrel 75 mg tablet 75 mg PO QPM acetaminophen [Tylenol Arthritis Pain] 650 mg Tablet Extended Release 1,950 mg PO QID PRN (Reason: Pain) topiramate 25 mg capsule, sprinkle 25 mg PO QPM ropinirole 0.25 mg tablet 0.25 mg PO BEDTIME pantoprazole 40 mg tablet,delayed release (DR/EC) 40 mg PO QPM metoprolol succinate 25 mg tablet extended release 24 hr 25 mg PO QPM Discharge Orders: Discharge ED (Routine); Ordered 12/25/23 Ordered By: Preet Kearns Referrals: Salma Carrasco NP [Primary Care Provider] - 1 week Patient Instructions: Abdominal Pain (ED), Enteritis (ED), Opioid Safety, Pain Management Activity Restrictions/Additional Instructions: Your evaluation in ER showed you have a markedly elevated lipase of 5378, your CT scan does not show any evidence of pancreatitis but does show enteritis. You have chose to go home and try this on an outpatient basis. You will be provided with pain medicine, nausea medicine, and antibiotic. If this does not control your pain or you get worse please feel free to return to the ER for probable admission. Coding Level of Care Code ED Valance Cutter for Barbara Brown
[2023-12-25] MEDS: sodium chloride 0.9% 1,000 ML 999 ML IV ×2 (00:38→03:11)
[2023-12-25] MEDS: ondansetron 2 mg/ML SDV 2 mL 4 MG IVP ×2 (00:38→05:53)
[2023-12-25] MEDS: ketorolac 30 mg/mL INJ IVP (00:38)
[2023-12-25 00:45] LABS: Basophils # 0.1 10^3/uL (0.0-0.1); Basophils % 0.5 %; Eosinophils # 0.2 10^3/uL (0.0-0.8); Eosinophils % 1.8 %; Lymphocytes # 1.2 10^3/uL (0.8-4.8); Lymphocytes % 11.7 %; Mean Corpuscular HGB Conc 33.7 g/dL (30-55); Mean Corpuscular Hemoglobin 30.6 pg (27-33); Mean Corpuscular Volume 90.7 fl (85-98); Mean Platelet Volume 10.9 fL (7.4-10.4); Monocytes # 0.4 10^3/uL (0.2-0.9); Monocytes % 3.6 %; Neutrophils # 8.44 10^3/uL (1.8-7.7); Neutrophils % 82.1 %; Nucleated Red Blood Cells % 0 %; Platelet Count 216 10^3/cmm (157-399); Red Blood Count 3.86 10^6/uL (3.85-5.65); White Blood Count 10.27 10^3/uL (3.29-11.43)
[2023-12-25 00:54] LABS: Alanine Aminotransferase 41 U/L (0-33); Albumin Level 4.4 g/dL (3.5-5.2); Alkaline Phosphatase 144 U/L (35-105); Anion Gap 16.4 (5-19); Aspartate Amino Transferase 85 U/L (0-32); Blood Urea Nitrogen 26 mg/dL (8-23); Calcium 9.4 mg/dL (8.5-10.5); Carbon Dioxide 24 mmol/L (22-29); Chloride 104 mmol/L (98-107); Creatinine Clr Calc Pharmacy 35.7519; Globulin 2.4 g/dL (1.3-4.6); Glomerular Filtration Rate 32.2 mL/min (90-130); Glucose 119 mg/dL (65-115); Osmolality Calculated 296 mOsm/kg (285-295); Potassium 4.4 mmol/L (3.5-5.1); Sodium 140 mmol/L (136-145); Total Bilirubin 0.4 mg/dL (0.15-1.2); Total Protein 6.8 g/dL (6.6-8.7)
[2023-12-25 01:53] LABS: Add Urine Microscopic? NO; Charge for UA Resulting for Rev
[2023-12-25 01:55] LABS: Bilirubin Urine 1+ (Negative); Blood Urine Neg (Negative); Glucose Urine UA Norm (Normal); Ketones Urine Negative (Negative); Leukocyte Esterase Urine Negative (Negative); Nitrate Urine Negative (Negative); Protein Urine Neg (Negative); Specific Gravity, Urine 1.025 (1.005-1.030); Urine Appearance Clear (CLEAR); Urine Color Yellow (Yellow); Urobilinogen Urine Neg (Negative); pH Urine 5 (5-7)
[2023-12-25 02:45] LABS: Lipase 5378 U/L (13-60)
--- NOTE | 2023-12-25 02:47 | CTR_ITS ---
PROCEDURE INFORMATION: Exam: CT Abdomen And Pelvis With Contrast Exam date and time: 12/25/2023 3:19 AM Age: 68 years old Clinical indication: Pain and abnormal findings; Abnormal lab test; Elevated lipase; Abdominal pain; Prior surgery; Surgery date: 6+ months; Surgery type: Gastric bypass. Gb. Tubal. Patient HX: Epigastric pain. Lipase 5378. ; Additional info: Epigastric abdominal pain, elevated lipase TECHNIQUE: Imaging protocol: Computed tomography of the abdomen and pelvis with contrast. Radiation optimization: All CT scans at this facility use at least one of these dose optimization techniques: automated exposure control; mA and/or kV adjustment per patient size (includes targeted exams where dose is matched to clinical indication); or iterative reconstruction. Contrast material: OMNI 350; Contrast volume: 80 ml; Contrast route: INTRAVENOUS (IV); COMPARISON: CT abdomen pelvis wo con [id number] 10/05/2023 10:43 AM RADIATION DOSE METRICS: Total DLP (mGy-cm): 805.52 FINDINGS: Lungs: Right lower lobe granuloma. Heart: Base of heart is unremarkable as visualized. Liver: Unremarkable. Gallbladder and bile ducts: Mild prominence of the intrahepatic biliary ducts. Prominence of the extra hepatic common biliary duct, unchanged. Patient is status post cholecystectomy. Pancreas: Pancreas is symmetrically enhancing, no significant surrounding inflammatory change of the pancreas. Mild diffuse prominence of the pancreatic duct, not reaching size criteria for obstruction. Spleen: Punctate splenic granulomas are noted. Adrenal glands: Normal. No mass. Kidneys and ureters: Unchanged bilateral benign renal cysts. Some scattered renal hypodensities are too small to characterize by modality, statistically likely to represent benign etiology. Mild prominence of the bilateral renal pelves, no overt obstruction. Stomach and bowel: Postsurgical change of the stomach is noted. Small sliding-type hiatal hernia with circumferential thickening of the esophagus. Multiple prominent loops of predominantly fluid-filled small bowel with scattered air-fluid levels. Appendix: No evidence of appendicitis. Intraperitoneal space: Unremarkable. No free air. No significant fluid collection. Vasculature: Minimal calcified atherosclerotic disease of the inferior aorta and the bilateral common iliac arteries. Multiple pelvic phleboliths are noted. Lymph nodes: Unremarkable. No enlarged lymph nodes. Urinary bladder: Unremarkable as visualized. Reproductive: Right adnexal cyst, grossly stable from 10/05/2023, measuring today 2.5 x 2.2 cm multiple punctate foci mineralization appreciated within the endometrial cavity of the uterine fundus. Bones/joints: Postsurgical change of the lower lumbar spine. Diffuse degenerative changes of the visualized osseous structures. Soft tissues: Superior periumbilical fat containing hernia which measures 4.5 x 4.2 x 4.6 cm, hernia neck measures 1.3 x 2.3 cm. No evidence for acute surgical complication. Other findings: Anterior midline postsurgical changes. Redemonstrated lobulation. CT/CT abdomen pelvis w con* [id number] IMPRESSION: 1. No CT imaging evidence for pancreatitis. 2. Findings suggest possible enteritis without overt obstruction. 3. Additional nonacute findings as above. COMMENTS: Consistent with the [employer]'s Incidental Findings Committee white paper (J Am Freida Radiol 2018): Any incidental renal lesion less than 1 cm or classified as too small to characterize, or any incidental cystic renal lesion characterized as simple-appearing, is likely benign. No follow-up imaging is recommended for these lesions per consensus recommendations based on imaging criteria.
[2023-12-25] MEDS: iohexol 350 mg/mL 500 mL Btl (per mL) IV (03:24)
== END 2023-12-25 06:01 | disposition home or self-care (01) ==
PROVIDERS: Emergency Provider Emergency Medicine; PCP Nurse Practitioner Family
DX: K52.9 Noninfective gastroenteritis and colitis, unspecified (principal); R10.13 Epigastric pain; R74.8 Abnormal levels of other serum enzymes; Z79.02 Long term (current) use of antithrombotics/antiplatelets; Z86.73 Personal history of transient ischemic attack (TIA), and cerebral infarction without residual deficits; Z87.891 Personal history of nicotine dependence
CPT/HCPCS: 74177; 80053; 81003; 83690; 85025; 96361; 96374; 96375; 99285; J1885; J2405; J7030; Q9967

== ENCOUNTER 2024-01-21 13:23 | Outpatient (CLI) | payer MEDICARE, MEDICAID, SELFPAY ==
[2024-01-21 13:53] LABS: Basophils # 0.1 10^3/uL (0.0-0.1); Basophils % 1.1 %; Eosinophils # 0.2 10^3/uL (0.0-0.8); Eosinophils % 4.1 %; Hematocrit 35.3 % (36-47); Lymphocytes # 1.5 10^3/uL (0.8-4.8); Lymphocytes % 31.4 %; Mean Corpuscular HGB Conc 34.3 g/dL (30-55); Mean Corpuscular Hemoglobin 30.7 pg (27-33); Mean Corpuscular Volume 89.6 fl (85-98); Mean Platelet Volume 10.5 fL (7.4-10.4); Monocytes # 0.4 10^3/uL (0.2-0.9); Monocytes % 7.5 %; Neutrophils # 2.62 10^3/uL (1.8-7.7); Neutrophils % 55.9 %; Nucleated Red Blood Cells % 0 %; Platelet Count 210 10^3/cmm (157-399); Red Blood Count 3.94 10^6/uL (3.85-5.65); Red Cell Distribution Width 16.2 % (12.1-15.1); White Blood Count 4.68 10^3/uL (3.29-11.43)
[2024-01-21 14:20] LABS: Calcium 9.4 mg/dL (8.5-10.5)
[2024-01-21 14:29] LABS: 25 Hydroxy Vitamin D 22 ng/mL (30-100); Albumin Level 4.3 g/dL (3.5-5.2); Anion Gap 12.2 (5-19); Blood Urea Nitrogen 13 mg/dL (8-23); Calcium 9.4 mg/dL (8.5-10.5); Carbon Dioxide 26 mmol/L (22-29); Chloride 108 mmol/L (98-107); Glucose 87 mg/dL (65-115); Phosphorus 3.7 mg/dL (2.5-4.5); Potassium 4.2 mmol/L (3.5-5.1); Sodium 142 mmol/L (136-145)
[2024-01-21 15:06] LABS: Creatinine Urine, Random 355 mg/dL (28-217); Microalbum Creatinine Ratio Ur 3 mg/dL (0-20); Microalbumin Random Urine 1 ug/dL (0-20)
== END 2024-01-21 13:24 | disposition home or self-care (01) ==
LOC: LAB 13:26
PROVIDERS: PCP Nurse Practitioner Family; Visit Provider Internal Medicine Nephrology
DX: N18.32 Chronic kidney disease, stage 3b (principal)
CPT/HCPCS: 36415; 80069; 82044; 82306; 82310; 83970; 85025

== ENCOUNTER 2024-05-09 14:13 | Outpatient (CLI) | payer MEDICARE, MEDICAID, SELFPAY ==
--- NOTE | 2024-05-09 14:18 | XR_ITS ---
WS: [email or web address] XR cervical spine 3V* [id number] REASON FOR EXAM: NECK PAIN FINDINGS: Straightening of the normal lordosis of the cervical spine. No focal vertebral body abnormality. Normal odontoid. Mild to moderate narrowing of the intervertebral disc spaces C4-C7. Moderate anterior osteophytosis a nd uncinate osteophytosis C3-C6. 1 to 2 mm of anterolisthesis of C5 in relation to C4. XR/XR cervical spine 3V* [id number] IMPRESSION: Degenerative spondylosis of the cervical spine as above.
--- NOTE | 2024-05-09 14:18 | XR_ITS ---
WS: [email or web address] XR thoracic spine 3V* [id number] REASON FOR EXAM: DORSALGIA FINDINGS: Mild dorsal kyphosis. Mild dextroscoliosis of the thoracic spine, less than 10 degrees. No focal vertebral body abnormality. Mild narrowing of the intervertebral disc spaces with moderate anterior osteophytosis in the mid and lower thoracic spine. XR/XR thoracic spine 3V* [id number] IMPRESSION: Mild kyphoscoliosis and degenerative spondylosis as above.
== END 2024-05-09 14:14 | disposition home or self-care (01) ==
LOC: RAD 14:17
PROVIDERS: PCP Nurse Practitioner Family; Visit Provider Nurse Practitioner Family
DX: M54.2 Cervicalgia (principal); M54.9 Dorsalgia, unspecified; M48.02 Spinal stenosis, cervical region; M25.78 Osteophyte, vertebrae; M47.812 Spondylosis without myelopathy or radiculopathy, cervical region; M41.84 Other forms of scoliosis, thoracic region; M48.04 Spinal stenosis, thoracic region
CPT/HCPCS: 72040; 72072

== ENCOUNTER → 2024-06-07 13:38 | Outpatient (BNVA) | payer MEDICARE, MEDICAID, SELFPAY | PROVIDERS: PCP Nurse Practitioner Family; Visit Provider Orthopaedic Surgery | DX: S22.089A Unspecified fracture of T11-T12 vertebra, initial encounter for closed fracture (principal); X58.XXXA Exposure to other specified factors, initial encounter | CPT/HCPCS: 72072; 99214 ==

== ENCOUNTER 2024-07-18 10:03 | Outpatient (CLI) | payer MEDICARE, MEDICAID, SELFPAY ==
--- NOTE | 2024-07-18 10:15 | MR_ITS ---
WS: [email or web address] MRI LUMBAR SPINE NONCONTRAST TECHNIQUE: Sagittal T1, T2 and STIR imaging. Axial T1 and T2 imaging. CLINICAL INFORMATION: back pain COMPARISON: None. FINDINGS: Mild lumbar curve. No acute compression. Slight retrolisthesis L1 on L2 and L2 on L3. Slight anteroli sthesis L4 on L5. L1-L2: Mild annular bulging. Mild facet arthropathy. Spinal canal and foramen are patent. L2-L3: Mild annular bulging. Slight narrowing subarticular recess bilaterally. Moderate facet arthrop athy. Mild RIGHT foraminal narrowing. L3-L4: Mild annular bulging. Moderate facet arthropathy. Spinal canal and foramen are patent. L4-L5: Slight anterolisthesis. Mild disc bulging with shallow central protrusion. Mild to moderate ce ntral canal stenosis. Slight impingement traversing L5 nerve roots. Moderate facet arthropathy. Small facet effusions. Mild bilateral foraminal narrowing. L5-S1: Tiny RIGHT subarticular protrusion. Slight encroachment on the RIGHT S1 nerve root. Moderate f acet arthropathy. Mild LEFT foraminal narrowing. RIGHT foramen is patent. Partially visualized bilateral renal cysts. Mild to moderate central canal stenosis in the cervical s pine on the cask maker imaging. MR/MR lumbar spine wo con* [id number] IMPRESSION: 1. Mild lumbar curve. No acute compression. 2. Mild to moderate central canal stenosis L4-5 with central shallow protrusio n and moderate facet arthropathy. 3. Mild bilateral L4-5 foraminal narrowing. 4. Mild LEFT L5-S1 foraminal narrowing.
--- NOTE | 2024-07-18 11:00 | MR_ITS ---
WS: [email or web address] MRI THORACIC SPINE WITHOUT CONTRAST TECHNIQUE: Sagittal T1, T2 and STIR imaging. Axial T2 imaging. Noncontrast imaging obtained. CLINICAL INFORMATION: back pain COMPARISON: None. FINDINGS: Mild thoracic curve. Moderate thoracic kyphosis. No acute appearing compression fractures. Mild spond ylitic changes. Moderate facet arthropathy in the lower thoracic spine. No significant disc protrusio ns or extrusions. Slight retrolisthesis T12 on L1 with mild disc bulging. A few tiny shallow central protrusions in the mid thoracic spine at T7-T10. Partially visualized renal cysts. Dilatation of the common bile duct partially evaluated measuring 13 mm similar to the prior studies. Mild to moderate central canal stenosis with small disc protrusions in the cervical spine on the cte teacher imaging MR/MR thoracic spin wo con* [id number] IMPRESSION: No acute thoracic spine findings.
== END 2024-07-18 10:04 | disposition home or self-care (01) ==
LOC: RAD 10:03
PROVIDERS: PCP Nurse Practitioner Family; Visit Provider Orthopaedic Surgery
DX: M46.94 Unspecified inflammatory spondylopathy, thoracic region (principal); M40.204 Unspecified kyphosis, thoracic region; M51.24 Other intervertebral disc displacement, thoracic region; M48.04 Spinal stenosis, thoracic region; M47.896 Other spondylosis, lumbar region; Q61.02 Congenital multiple renal cysts; K83.8 Other specified diseases of biliary tract
CPT/HCPCS: 72146; 72148

== ENCOUNTER 2024-07-18 11:39 | Outpatient (CLI) | payer MEDICARE, MEDICAID, SELFPAY ==
--- NOTE | 2024-07-18 12:01 | XR_ITS ---
WS: [email or web address] Exam: XR hand LT min 3V* [id number] Date/Time of Exam: 07/18/2024 12:04 PM Reason For Exam: BILATERAL HAND PAIN No fracture or dislocation. Mild degenerative changes of the IP and MP joints. Moderate DJD at the CM C joint of the thumb. No soft tissue foreign bodies. XR/XR hand LT min 3V* [id number] IMPRESSION: 1. Degenerative changes.
--- NOTE | 2024-07-18 12:01 | XR_ITS ---
WS: [email or web address] Exam: XR hand RT min 3V* [id number] Date/Time of Exam: 07/18/2024 12:04 PM Reason For Exam: BILATERAL HAND PAIN No acute fracture or dislocation. Mild to moderate degenerative changes in the IP and MP joints. No s oft tissue foreign bodies are noted. Degenerative change at the CMC joint of the thumb. XR/XR hand RT min 3V* [id number] IMPRESSION: 1. Moderate degenerative changes.
== END 2024-07-18 11:40 | disposition home or self-care (01) ==
LOC: RAD 11:40
PROVIDERS: PCP Nurse Practitioner Family; Visit Provider Nurse Practitioner Family
DX: M19.041 Primary osteoarthritis, right hand (principal); M19.042 Primary osteoarthritis, left hand
CPT/HCPCS: 73130

== ENCOUNTER 2024-08-01 14:46 | Outpatient (CLI) | payer MEDICARE, MEDICAID, SELFPAY ==
--- NOTE | 2024-08-01 14:50 | CT_ITS ---
WS: [email or web address] CT ABDOMEN AND PELVIS NONCONTRAST HISTORY: ABDOMINAL PAIN TECHNIQUE: Imaging performed through the abdomen and pelvis. Coronal and sagittal reformats are submi tted. All CT scans at [facility] use at least one of these dose optimization techniques: auto mated exposure control; mA and/or kV adjustment per patient size (includes targeted exams where dose is matched to clinical indication); or iterative reconstruction. DLP: 463.26 mGy.cm COMPARISON: 12/25/2023 Lower thorax: Lung bases are clear. Visualized heart is normal. Prior gastric bypass. Liver: Heterogeneous liver. Difficult to evaluate further without IV contrast. No mass. There is mild bile duct dilatation. Common bile duct is dilated to 12 mm. Similar to 12/25/2023. Gallbladder: Prior cholecystectomy. Pancreas: Common bile duct is dilated to the pancreatic head. No change in the appearance of the panc reas. Spleen: Normal. Adrenal glands: Normal. No mass. Right kidney: 2.1 cm stable renal cyst lower pole. No obstruction. Left kidney: Mildly dense exophytic cyst LEFT kidney similar in appearance to 12/25/2023. Indeterminate . No renal obstruction. Aorta: Mild atherosclerosis abdominal aorta with no aneurysm. No free fluid, intraperitoneal air or significant lymphadenopathy. GI tract: Prior gastric bypass. No small bowel obstruction. Normal appendix. Moderate constipation. N o colitis. Abdominal wall: Ventral abdominal wall hernia containing omentum only. Pelvis: RIGHT adnexal cyst, unchanged. Osseous structures: Increase in the lumbar lordosis. CT/CT abdomen pelvis wo con [id number] IMPRESSION: 1. No GI tract obstruction. 2. Prior gastric bypass. 3. Normal appendix. 4. No renal obstruction. 5. Long-term stability dilated common bile duct with prior cholecystectomy. 6. Ventral abdominal wall hernia contains fat only.
[2024-08-01] MEDS: iohexol 350 mg/mL 500 mL Btl (per mL) PO (15:41)
== END 2024-08-01 14:47 | disposition home or self-care (01) ==
LOC: RAD 14:47
PROVIDERS: PCP Nurse Practitioner Family; Visit Provider Nurse Practitioner Family
DX: R10.9 Unspecified abdominal pain (principal); Z98.84 Bariatric surgery status; K43.9 Ventral hernia without obstruction or gangrene; N83.291 Other ovarian cyst, right side; Z90.49 Acquired absence of other specified parts of digestive tract
CPT/HCPCS: 74176

== ENCOUNTER → 2024-10-06 15:42 | Outpatient (BNVA) | payer MEDICARE, SELFPAY | PROVIDERS: PCP Nurse Practitioner Family; Visit Provider Orthopaedic Surgery | DX: Z09 Encounter for follow-up examination after completed treatment for conditions other than malignant neoplasm (principal); M43.16 Spondylolisthesis, lumbar region | CPT/HCPCS: 36415; 72110; 80053; 81001; 85025; 99214 ==

== ENCOUNTER → 2024-10-25 09:15 | Outpatient (BNVA) | payer MEDICARE, MEDICAID, SELFPAY | PROVIDERS: PCP Nurse Practitioner Family; Referring Provider Nurse Practitioner Family; Visit Provider Specialist | DX: G56.01 Carpal tunnel syndrome, right upper limb (principal) | CPT/HCPCS: 95911 ==

== ENCOUNTER 2024-11-02 18:57 | Observation (INO) | payer MEDICARE, MEDICAID, SELFPAY ==
[2024-11-02] VITALS (17 sets, daily range): BP systolic 101–141; BP diastolic 47–75; PULSE 56–82; RESP 16–18; TEMP 36.2–36.7; O2SAT 92–98; BMI 33.3
--- NOTE | 2024-11-02 14:48 | W.PM.OPSUD ---
Surgery/Procedure H&P Update DATE OF PROCEDURE: November 02, 2024 DATE H&P PERFORMED: 10/31/24 H&P UPDATE INFORMATION: I have reviewed H&P completed within last 30 days, I have examined patient prior to procedure and No changes to prior documentation PREOP DIAGNOSIS: Lumbar stenosis with neurogenic claudication PLANNED PROCEDURE: Operation Date: 11/02/24 15:40 Proposed Procedures p Spinal Fusion PSF(Not Applicable) - Joel Moseley DO s Posterior Lumbar Interbody Fusion PLIF(Not Applicable) - Joel Moseley DO
[2024-11-02] MEDS: sodium chloride 0.9% 1,000 ML 30 ML IV (14:56)
[2024-11-02] MEDS: fentaNYL 50 mcg/mL INJ 2mL IVP ×2 (15:04→18:50)
--- NOTE | 2024-11-02 15:26 | P.ANESASSM_ITS ---
Pre-Anesthetic Assessment Height/Weight: Height 5 ft 3 in Weight 188 lb Temp Pulse Resp BP Pulse Ox O2 Del Method 97.5 F L 56 L 16 101/60 96 Room Air 11/02/24 14:11 11/02/24 14:11 11/02/24 15:04 11/02/24 14:11 11/02/24 15:04 11/02/24 14:18 Preop Diagnosis: Lumbar stenosis with neurogenic claudication Operation Date: 11/02/24 15:40 Proposed Procedures p Spinal Fusion PSF(Not Applicable) - Joel Moseley DO s Posterior Lumbar Interbody Fusion PLIF(Not Applicable) - Joel Moseley DO Was Beta Karen taken within 24 hours: Yes Was Clonidine taken within 24 hours: N/A Last intake: Intake Last Liquid Date 11/01/24 Last Liquid Time 23:00 Last Solid Date 11/01/24 Last Solid Time 21:00 Social No alcohol and No tobacco Exam alert, oriented x 3, clear to auscultation bilaterally and regular rate & rhythm Airway Submandibular: within normal limits Cervical ROM: within normal limits Mallampati: Class II Comments: Comments: edentulous Anesthetic Plan ASA status: 3 Anesthesia: General Other: No prior issues with anesthesia NPO since yesterday History of CVA, 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 lower extremity GERD on Protonix Hypertension on metoprolol Patient takes chronic hydrocodone at baseline On chronic Plavix, last taken 10/19/2024 Labs 10/06/2024 reviewed and acceptable for procedure Plan for GETA Medications/Allergies Home Medications Medication Instructions Recorded Confirmed Last Taken Type acetaminophen 650 mg 1,950 mg PO QID PRN Pain 01/21/22 11/02/24 08/24/24 History tablet,extended release (Tylenol Arthritis Pain) pantoprazole 40 mg tablet,delayed 40 mg PO QPM 01/21/22 11/02/24 11/01/24 History release ropinirole 0.25 mg tablet 0.25 mg PO BEDTIME 01/21/22 11/02/24 11/01/24 History topiramate 25 mg sprinkle capsule 25 mg PO QPM 01/21/22 11/02/24 11/01/24 History ondansetron HCl 4 mg tablet 4 mg PO Q8H PRN nausea and 12/25/23 11/02/24 10/12/24 Rx vomiting #14 tabs hydroxyzine HCl 50 mg tablet 50 mg PO QID PRN insomnia/anxiety 07/11/24 11/02/24 11/01/24 Rx #120 tabs sertraline 100 mg tablet (Zoloft) 200 mg (2 x 100 mg) PO DAILY #60 07/11/24 11/02/24 11/01/24 Rx tabs trazodone 100 mg tablet See Rx Instructions .Route 07/11/24 11/02/24 11/01/24 Rx .COMPLEX #60 tabs metoprolol succinate 25 mg 25 mg PO QPM #90 tabs 09/13/24 11/02/24 11/01/24 Rx tablet,extended release 24 hr tizanidine 4 mg capsule 4 mg PO BID PRN Spasms #180 caps 09/13/24 11/02/24 11/01/24 Rx atorvastatin 40 mg tablet See Rx Instructions .Route 09/19/24 11/02/24 11/01/24 Rx .COMPLEX #90 tabs hydrocodone 5 mg-acetaminophen 325 1 tab PO BID PRN pain 14 days #24 10/11/24 11/02/24 11/01/24 Rx mg tablet tabs clopidogrel 75 mg tablet (Plavix) See Rx Instructions .Route .COMPLEX 11/02/24 11/02/24 10/19/24 History Allergies Allergy/AdvReac Type Severity Reaction Status Date / Time metronidazole [From Flagyl] Allergy Unknown Verified 10/31/24 10:56 Current Medications Generic Name Dose Route Start Last Admin Trade Name Freq PRN Reason Stop Dose Admin Fentanyl 50 mcg 11/02/24 13:51 11/02/24 15:04 Fentanyl 50 Mcg/Ml Inj 2ml IVP 50 mcg Q10M PRN Administration Preop Pain Sodium Chloride 1,000 mls @ 30 mls/hr 11/02/24 14:00 11/02/24 14:56 Sodium Chloride 0.9% IV 11/03/24 13:59 30 mls/hr .Q24H NICOLE Administration PFSH Anesthesia Medical History CVA (cerebral vascular accident) TIA (transient ischemic attack) Psychiatric care Surgical History History of tubal ligation History of gastric bypass x2 History of cholecystectomy Social History Smoking and tobacco/nicotine status: former use of tobacco/nicotine (stopped at age 32) Quit status (tobacco/nicotine): has quit using Year quit tobacco: 1989 Second hand smoke exposure: No Alcohol intake: former Year of sobriety/quit date alcohol: 1991 Substance/Drug Use: former Adopted: No Caregiver/support person: No Lives independently: No Household members: family Marital status: / Do you think of yourself as: Straight/Heterosexual Current gender identity: Female Data Anesthesia Cardiac Studies: Echocardiogram 07/18/22 Sestamibi Stress Test (Cardiology) 12/08 Cardiac Event Monitor 05/29/22
[2024-11-02] MEDS: ceFAZolin 2,000 mg SDV 2000 MG IVP ×2 (15:43→23:34)
[2024-11-02] MEDS: lidocaine-epi 1% 20 mL INJ 10 ML INJECTION (16:39)
[2024-11-02] MEDS: heparin, porcine 1,000 unit/mL INJ 10 mL 6000 UNIT IRRIGATION (16:39)
[2024-11-02] MEDS: VANCOMYCIN ADD-Vantage 1,000 MG VIAL 1000 MG XX (16:43)
--- NOTE | 2024-11-02 18:06 | XR_ITS ---
WS: [id number] XR lumbar spine 2-3V* [id number] REASON FOR EXAM: OR PICS FINDINGS: Posterior decompression with pedicle screws and interbody fusion device L4-L5. Surgical appliances intact and in proper position and alignment. XR/XR lumbar spine 2-3V* 18900 IMPRESSION: Posterior lumbar fusion as above.
--- NOTE | 2024-11-02 18:20 | P.OP_ITS ---
Operative Report Date of procedure: November 02, 2024 Pre-op diagnosis: Lumbar stenosis with neurogenic claudication L4-5 spondylolisthesis Post-op diagnosis: same Procedure done: 1. L4/5 Interbody fusion with posterolateral fusion 2. Instrumentation L4-L5 3. Insertion of Cage at L4/5 4. L4-5 laminectomy with facetectomies 5. use of autograft from same incision 6. allograft 7. Bone marrow aspirate from right iliac crest 8. Use of computer navigation/stereotactic for the spine Surgeon: Joel Moseley DO Estimated blood loss (mL): 250 Procedure: 1. L4/5 Interbody fusion with posterolateral fusion 2. Instrumentation L4-L5 3. Insertion of Cage at L4/5 4. L4-5 laminectomy with facetectomies 5. use of autograft from same incision 6. allograft 7. Bone marrow aspirate from right iliac crest 8. Use of computer navigation/stereotactic for the spine Patient is brought to the operative suite. After undergoing anesthesia, the patient had neuro monitoring attached. Patient was then placed in the prone position on the Jah table. All areas of impingement were well-padded. Patient was then prepped and draped in the normal sterile fashion. Skin incision was then made over the L4-L5 disc space. Subperiosteal dissection was made out to the transverse processes of L4 and L5. Next attention was brought to the Collplant bone marrow aspirate kit was used to aspirate bone marrow aspirate. This was done by using the sharp probe to open up the bone. Aspiration was performed and then the blunt probe was then used to dissect down to through the bone tunnel. An aspirating well drawn back a millimeter approximately 20 cc of bone marrow aspirate was used. Admixed with the allograft and autograft bone that will be used. Next attention was brought to placing the computer navigation fiducial. The pins were placed in the right iliac crest. These pins were later removed at the end of the case. The fiducial was then attached to this. The C-arm was then brought in and spun around the patient. The information of the C-arm was then loaded the computer and this was later used for the placement of the pedicle screws. Next attention was brought to placing the pedicle screws. The technique for placing the pedicle screws was to use a drill followed by the gearshift probe. Followed by the ball probe to feel the superior inferior medial lateral lebron of the pedicles. Then placement of the screws. Was done at each pedicle. Screws were placed at L4 bilaterally and L5. Next attention was brought to performing the laminectomy ofL4. This was done using the high-speed bur Kerrisons and curettes. Once the lamina was removed and then attention was brought to performing a partial facetectomy on the contralateral side. This was done again using the high-speed bur curettes and Kerrisons. The ligamentum flavum was taken down bilaterally from L4 to L5. Attention was then brought to the facet on the ipsilateral side. The facet was taken down. The L5 nerve was decompressed as it passed around the L5 pedicle. The laminectomy was done for purposes of decompressing the nerve as well as placement of the cage. The L4 nerve was identified as it traversed through the L4 foramen. The thecal sac was identified and retracted. The L4/5 disc base was identified. Using a knife the disc base was opened. And then sequential tonia were placed. The first shaver was a 6 and the last shaver was a 11. Using a pituitary and down going curette the endplates were scraped and disc material was removed from the space. Once adequate decompression of the disc base was felt to be had. Osteoamp sponge was packed into the anterior aspect of the disc base. Then a size 12 cage from [employer] was placed after packing osteoamp into the cage. While placing the cage the thecal sac and L5 nerve was protected. C arm was used to ensure that the cages placed in the appropriate position. Attention was then brought to attaching the rods to the screws placed in the L4 bilaterally and L5 bilaterally. Caps were torqued into position. Locking the construct in place. Wound was copiously irrigated and then attention was brought to decorticating the facets and transverse processes laterally. Bone that was taken down from the lamina was used along with osteoamp fibers and sponges were packed into the lateral gutters along the facet joints. This was done bilaterally. Wound was then closed in a layered fashion starting with the thoracolumbar fascia. 0-vicryl was used the sub cutaneous tissue was closed with 2-0 vicryl and skin with 4-0 monocryl. Glue was then used to seal the skin and a steril dressing was applied. Patient was then placed in the supine position. The endotracheal tube was removed and patient was transferred to the PACU in stable condition.
[2024-11-02] MEDS: ketorolac 30 mg/mL INJ IVP (19:44)
[2024-11-02] MEDS: HYDROcodone-acetaminophen 5-325 mg Tablet PO (19:44)
[2024-11-02] MEDS: atorvastatin 40 mg Tablet PO (19:44)
[2024-11-02] MEDS: lactated ringers 1,000 ML 90 ML IV (19:46)
[2024-11-02] MEDS: ropinirole 0.25 mg Tablet PO (19:46)
[2024-11-02 20:41] LABS: Glucose Point of Care 118 mg/dL (70-110)
[2024-11-02] MEDS: tizanidine 4 mg Tablet PO (22:26)
[2024-11-02] MEDS: trazodone 100 mg Tablet 200 MG PO (22:26)
[2024-11-03 00:55] VITALS: BP 77/41; PULSE 59; RESP 18; O2SAT 92
[2024-11-03] MEDS: sodium chloride 0.9% 500 ML 999 ML IV (01:00)
[2024-11-03 01:56] VITALS: BP 96/54; PULSE 64; RESP 16
[2024-11-03 04:33] VITALS: BP 94/56; PULSE 68; RESP 16; TEMP 37.1; O2SAT 93
[2024-11-03] MEDS: lactated ringers 1,000 ML 90 ML IV (05:59)
[2024-11-03 07:57] VITALS: BP 114/72; PULSE 82; RESP 18; TEMP 36.6; O2SAT 96
[2024-11-03] MEDS: tizanidine 4 mg Tablet PO (08:47)
[2024-11-03] MEDS: docusate sodium 100 mg Capsule PO (08:47)
[2024-11-03] MEDS: ketorolac 30 mg/mL INJ IVP (08:47)
[2024-11-03] MEDS: sertraline 100 mg Tablet 200 MG PO (08:47)
[2024-11-03] MEDS: ceFAZolin 2,000 mg SDV 2000 MG IVP (08:47)
[2024-11-03] MEDS: ondansetron 2 mg/ML SDV 2 mL 4 MG IVP (10:04)
--- NOTE | 2024-11-03 11:19 | PM.DCS ---
Discharge Providers Date of Admission: 11/02/24 18:57 Date of Discharge: November 03, 2024 Attending Provider at Admission: Joel Garza DO Attending Provider at Discharge: Joel Garza DO Primary Care Provider: Salma Carrasco NP Reason for Visit Reason for Visit: M48.062 Physical Exam Narrative: Patient is doing well sitting in bed no pain. He is eating breakfast was ambulating with physical therapy. Urinary Catheter Management: Phillips: Cath Placed During This Visit: yes, but has since been removed by the nurse Reason for Continuing Indwelling Catheter: Decision to DC Catheter Urinary Catheter Date of Insertion: 11/02/24 Urinary Catheter Time of Insertion: 16:10 Date Urinary Catheter Removed: 11/03/24 Time Urinary Catheter Discontinued: 06:40 Discharge Data Studies Completed and Pending Completed Studies During Hospitalization Category Date Time Status XR lumbar spine 2-3V* [id number] Routine Exams 11/02/24 18:06 Completed Radiology Impressions Lumbar Spine X-Ray 11/02/24 18:06 IMPRESSION: Posterior lumbar fusion as above. Laboratory Results POC Glucose 118 mg/dL (70-110) H 11/02/24 20:35 Blood Type O Positive 11/02/24 14:40 Rho(D) Type Rh positive 11/02/24 14:40 Antibody Screen Negative 11/02/24 14:40 Vitals Last Vital Signs Temp 97.9 F 11/03/24 07:57 Pulse 82 11/03/24 07:57 Resp 18 11/03/24 07:57 BP 114/72 11/03/24 07:57 Pulse Ox 96 11/03/24 07:57 O2 Del Method Room Air 11/03/24 07:57 Discharge Plan Discharge Patient Disposition: Home Condition: Stable Prescriptions: New hydrocodone-acetaminophen 5-325 mg tablet 1 - 2 tab PO .Q4-6H Qty: 40 0RF Continued hydroxyzine HCl 50 mg tablet 50 mg PO QID PRN (Reason: insomnia/anxiety) Qty: 120 2RF sertraline [Zoloft] 100 mg tablet 200 mg PO DAILY Qty: 60 2RF trazodone 100 mg tablet See Rx Instructions .ROUTE .COMPLEX Qty: 60 2RF Dose Instruction: TAKE 2 TABLETS BY MOUTH AT BEDTIME NEEDED FOR INSOMNIA Rx Instructions: TAKE 2 TABLETS BY MOUTH AT BEDTIME NEEDED FOR INSOMNIA tizanidine 4 mg capsule 4 mg PO BID PRN (Reason: Spasms) Qty: 180 0RF atorvastatin 40 mg tablet See Rx Instructions .ROUTE .COMPLEX Qty: 90 0RF Dose Instruction: TAKE 1 TABLET BY MOUTH EVERY EVENING Rx Instructions: TAKE 1 TABLET BY MOUTH EVERY EVENING (DME) Bone Growth Stimulator See Rx Instructions .Route .MEDSUPPLY Qty: 1 0RF Rx Instructions: As directed acetaminophen [Tylenol Arthritis Pain] 650 mg Tablet Extended Release 1,950 mg PO QID PRN (Reason: Pain) topiramate 25 mg capsule, sprinkle 25 mg PO QPM ropinirole 0.25 mg tablet 0.25 mg PO BEDTIME pantoprazole 40 mg tablet,delayed release (DR/EC) 40 mg PO QPM ondansetron HCl 4 mg tablet 4 mg PO Q8H PRN (Reason: nausea and vomiting) Qty: 14 0RF Held metoprolol succinate 25 mg tablet extended release 24 hr 25 mg PO QPM Qty: 90 0RF Hold Instructions: Resume on 11/05/24. clopidogrel [Plavix] 75 mg tablet See Rx Instructions .ROUTE .COMPLEX Hold Instructions: Resume on 11/05/24. Rx Instructions: TAKE 1 TABLET BY MOUTH DAILY Discontinued hydrocodone-acetaminophen 5-325 mg tablet 1 tab PO BID PRN (Reason: pain) 14 Days Qty: 24 0RF Discharge Orders: Discharge Order (Routine); Ordered 11/03/24 Ordered By: Joel Garza Discharge Diet: Advance as tolerated Discharge Activity: Limit activity as instructed Patient Instructions: Acute Wound Care (DC), Opioid Safety, Post Anesthesia Care Activity Restrictions/Additional Instructions: Thank you for [facility] for your care! The following is a list of instructions, from your provider, to follow upon your discharge to ensure you have the optimal recovery from your recent injury orsurgery. Follow-up care is a broussard part of your treatment and safety. Be sure to make and go to all appointments, and call your doctor if you are having problems. If you do not already have a follow-up appointment made, call Dr. garza office in the next 1-3 days to make follow up appointment for 1 weeks at [phone]. It is also a good idea to know your test results and keep a list of the medicines you take. Medications will be prescribed for you at your provider's discretion. These medications are to be used as instructed; if they are taken more often that prescribed they will not be refilled early and in most cases will not be refilled at all. > When a refill is needed,you should contact lottie renst 2-3 business days before your prescription runs out. Medications will NOT be refilled by credit and collection manager providers after hours! > Many pain medications contain Tylenol (Acetaminophen). Do not consume more than 4,000 mg of Tylenol per day in total with any combination ofmedications. > Pain medications can cause constipation. Please use an over the counter stool softener as directed, while taking pain medications. Consulty our local pharmacist with questions or recommendations on stool softeners. If constipation persists, contact our office or your primary care provider. > While under our care,you are not to receive pain medications or other controlled substances from any other provider unless our office is notified and approves. Any attempts to do so will result in refusal to prescribe any further pain medications and possible dismissal from our practice. Will change dressing in the clinic in 1 week. ? Showering is permitted, however we ask that you do not take a bath, sit in a whirlpool / Jacuzzi, or go swimming for 1 month. For only the first 2 days after surgery, lt wilt be necessary for you to cover your wound/dressing with plastic and tape to keep it dry. ? Walking is essential for the healing process after surgery. We would like you to slowly advance your walking. This should be done on relatively flat clear ground (inside or out) or can be done on a treadmill. Remember this goal does not have to happen all at once, slowly increase your distance and duration. This can be broken into more more than one walk per day as tolerated. Patients who walk as directed after surgery rarely require Physical Therapy. In the unlikely event this issue arises your provider will direct hospital staff to make the appropriate arrangements. ? No lifting over 5 pounds {a gallon of milk) or bending/twisting until further notice. Each of these activities places an unnecessary amount of stress onto the body and can impede the delicate healing process. > Instead of bending at the waist, keep your back straight and bend at the knees. > Instead of twisting your torso, keep your back straight and turn your entire body with your feet. ? You may sleep in any position which makes you comfortable. Many patients find comfort sleeping in a reclining chair. It is not abnormal to have difficulty sleeping for the first several weeks following your surgery. We recommend trying Benadry! or Tylenol PM as directed to help with your sleeping difficulties. Both medications are over the counter and available withoutprescription. ? NO SMOKING!!! Smoking dramatically increases the probability of developing postoperative wound infections. ? Common complaints after lumbar and/or thoracic spine surgery include, but are not limited to: numbness and/or tingling in the legs, pain around the incision and surrounding tissues, muscle spasms, or stiffness of the middle to low back. Contact our office if these symptoms persist or if an acute change occurs. ? No driving for the first 3-5days, and not while taking narcotics until seen at your follow-up appointment and cleared. There are no restrictions for riding on short trips, however if you take a longer trip, arrangements should be made to make regular stops to get out of the vehicle and stretch . ? Swelling is an unfortunate event that will take place with any surgery and is the primary source of your postoperative discomfort. While walking and regular approved activities helps control inflammation, there are additional steps you can take to minimizeswelling. > Place ice over the surgical site and surrounding tissue for twenty minutes, followed by applying a low/medium heat (heating pad) for an additional twenty minutes every 1-2 hours as needed for painrelief. > You may use of over the counter anti-inflammatory medications (Ibuprofen, Motrin, Aleve, Advil, etc) as directed on the package label. These types of medicines wm significantly reduce the amount of discomfort you experience after surgery from swelling. It should be noted that if you have and allergy to any of these medications, or a history of ulcers or kidney disease you should consult you primary care provider prior to starting these medications. Discharge Attestations Time Spent in Discharge Care*: less than 30 min Quality Metrics Clinical Quality Measures [ No reported AMI, CVA or VTE this stay] Coding Level of Care Code Acute Code for Chg Fwd
[2024-11-03 12:07] VITALS: BP 98/60; PULSE 81; RESP 16; TEMP 36.8; O2SAT 95
== END 2024-11-03 14:14 | disposition home or self-care (01) ==
LOC: MEDSURG 22:19
PROVIDERS: Admitting Provider Orthopaedic Surgery; PCP Nurse Practitioner Family; Visit Provider Orthopaedic Surgery
PROC: (CPT 22633; principal; 2024-11-02 15:40)
PROC: (CPT 22612; 2024-11-02 15:40)
DX: M48.062 Spinal stenosis, lumbar region with neurogenic claudication (principal); M43.16 Spondylolisthesis, lumbar region; Z86.73 Personal history of transient ischemic attack (TIA), and cerebral infarction without residual deficits; K21.9 Gastro-esophageal reflux disease without esophagitis; I10 Essential (primary) hypertension; Z79.891 Long term (current) use of opiate analgesic; Z79.02 Long term (current) use of antithrombotics/antiplatelets; Z98.84 Bariatric surgery status; Z87.891 Personal history of nicotine dependence
CPT/HCPCS: 22633; 20930; 20936; 22840; 22853; 61783; 63052; 36416; 51702; 72100; 76000; 82962; 86850; 86900; 97110; 97161; 97530; C1713; G0378; J0131; J0690; J1100; J1171; J1644; J1885; J2250; J2405; J2704; J3010; J3370; J3490; J7030; J7120

== ENCOUNTER → 2024-11-17 13:49 | Outpatient (BNVA) | payer MEDICARE, MEDICAID, SELFPAY | PROVIDERS: PCP Nurse Practitioner Family; Visit Provider Orthopaedic Surgery | DX: Z98.1 Arthrodesis status (principal) | CPT/HCPCS: 99024 ==

== ENCOUNTER → 2024-11-29 13:18 | Outpatient (BNVA) | payer MEDICARE, OTHER, SELFPAY | PROVIDERS: PCP Nurse Practitioner Family; Visit Provider Orthopaedic Surgery | DX: Z98.1 Arthrodesis status (principal) | CPT/HCPCS: 99024 ==

== ENCOUNTER → 2024-12-12 12:52 | Outpatient (BNVA) | payer MEDICARE, SELFPAY | PROVIDERS: PCP Nurse Practitioner Family; Visit Provider Specialist | DX: M65.331 Trigger finger, right middle finger (principal); M79.641 Pain in right hand | CPT/HCPCS: 73130; 99204 ==

== ENCOUNTER → 2024-12-13 15:38 | Outpatient (BNVA) | payer MEDICARE, SELFPAY | PROVIDERS: PCP Nurse Practitioner Family; Visit Provider Orthopaedic Surgery | DX: M54.9 Dorsalgia, unspecified (principal) | CPT/HCPCS: 72100; 99024 ==

== ENCOUNTER 2024-12-14 15:37 | Outpatient (CLI) | payer MEDICARE, SELFPAY ==
--- NOTE | 2024-12-14 16:00 | MR_ITS ---
WS: [id number] MRI LUMBAR SPINE NONCONTRAST HISTORY: Back Pain, back pain and RIGHT hip pain. Prior fusion October 2024. COMPARISON: MRI 07/18/2024. Radiograph 12/13/2024 TECHNIQUE: Sagittal and axial multisequence imaging is submitted. Mild increase in thoracic kyphosis. Cervical disc protrusion at C6-7 contacting the ventral cervical cord. Smaller disc osteophytes at C4-5 and C5-6. New posterior lumbar fusion at L5-S1 with interbody spacer. Increase in lumbar lordosis. L4 anterolisthesis by 3.6 mm. 2 mm retrolisthesis of T12, L1 and L2. No fractures or marrow edema. Mild disc desiccation throughout the lumbar spine. Conus terminates normally at L1-2 disc level. L1-L2: Bilateral facet arthritis and mild foraminal narrowing. L2-L3: Mild annular disc bulging with moderate ligamentum flavum and facet arthropathy encroaching upon the thecal sac. Mild disc encroachment upon the subarticular recesses. New small RIGHT subarticular and proximal foraminal disc protrusion. Moderate RIGHT and mild LEFT foraminal stenosis. L3-L4: Mild annular disc bulging with marked facet joint arthritis. Progression of foraminal stenosis since the prior study. There is at least moderate foraminal stenosis. Stenosis due to facet joint arthritis and disc bulging. L4-L5: Motion artifact. Moderate central stenosis. Foramina are very poorly visualized. There is at least moderate LEFT foraminal stenosis. Marked facet arthritis. Posterior postsurgical changes and laminectomy. L5-S1: Mild disc bulging. Previously described RIGHT subarticular disc protrusion is not identified. Minimal encroachment upon the S1 nerve roots, RIGHT greater than LEFT. Marked facet arthritis. Mild bilateral foraminal stenosis. RIGHT renal cyst. MR/MR lumbar spine wo con* [id number] IMPRESSION: 1. New postoperative changes of the posterior lumbar fusion at L5-S1 with inte rbody spacer since 07/18/2024. 2. Increase in lumbar lordosis. 3. Mild anterolisthesis of L4 by 3.6 mm. 4. L2-3: New small RIGHT subarticular and proximal foraminal disc protrusion. Moderate RIGHT and mild LEFT foraminal stenosis. 5. L3-4: Progression of foraminal stenosis since the prior study. There is at least moderate foraminal stenosis due to facet disease and disc disease. 6. L4-5: Limited by motion and surgical changes. Moderate central with at leas t moderate LEFT foraminal stenosis. 7. L5-S1: Mild bilateral foraminal stenosis.
== END 2024-12-14 15:38 | disposition home or self-care (01) ==
LOC: RAD 15:40
PROVIDERS: PCP Nurse Practitioner Family; Visit Provider Orthopaedic Surgery
DX: M48.061 Spinal stenosis, lumbar region without neurogenic claudication (principal); Z98.1 Arthrodesis status; M40.46 Postural lordosis, lumbar region; M43.16 Spondylolisthesis, lumbar region; M51.26 Other intervertebral disc displacement, lumbar region; R93.7 Abnormal findings on diagnostic imaging of other parts of musculoskeletal system; M48.07 Spinal stenosis, lumbosacral region; M40.294 Other kyphosis, thoracic region; M50.223 Other cervical disc displacement at C6-C7 level; M25.78 Osteophyte, vertebrae; M43.14 Spondylolisthesis, thoracic region; M47.896 Other spondylosis, lumbar region; M51.369 Other intervertebral disc degeneration, lumbar region without mention of lumbar back pain or lower extremity pain; M51.379 Other intervertebral disc degeneration, lumbosacral region without mention of lumbar back pain or lower extremity pain; M47.897 Other spondylosis, lumbosacral region
CPT/HCPCS: 72148

== ENCOUNTER → 2024-12-15 14:16 | Outpatient (BNVA) | payer MEDICARE, SELFPAY | PROVIDERS: PCP Nurse Practitioner Family; Visit Provider Orthopaedic Surgery | DX: Z98.1 Arthrodesis status (principal) | CPT/HCPCS: 99024 ==

== ENCOUNTER 2025-01-23 20:13 | Emergency (ER) | payer MEDICARE, MEDICAID, SELFPAY ==
[2025-01-23 20:17] VITALS: BP 137/81; PULSE 80; RESP 18; TEMP 36.6; O2SAT 99; BMI 28.8
--- NOTE | 2025-01-23 20:22 | W.ED.BACK ---
HPI - Back Pain/Injury General: Chief Complaint: Back Pain/Injury Stated Complaint: back pain Time Seen by Provider: 01/23/25 20:16 Source: patient and EMS Mode of arrival: EMS Limitations: no limitations History of Present Illness: 69-year-old female has a history of chronic back pain she had back surgery in October she has had chronic pain since then. States the pain in her back is worsened over the last few days rates an 8 out of 10 states it has radiates down both hips she denies any bowel or bladder incontinence denies any fevers or injury. Associated symptoms: Deny abdominal pain, chills, fever(s), nausea or vomiting Related Data Home Medications ?Medication ?Instructions ?Recorded ?Confirmed acetaminophen 650 mg 1,950 mg PO QID PRN Pain 01/21/22 12/15/24 tablet,extended release (Tylenol Arthritis Pain) topiramate 25 mg sprinkle capsule 25 mg PO QPM 01/21/22 12/15/24 clopidogrel 75 mg tablet (Plavix) See Rx Instructions .Route .COMPLEX 11/02/24 12/15/24 Held on 11/03/24. Instructions: Resume on 11/05/24. Previous Rx's ?Medication ?Instructions ?Recorded metoprolol succinate 25 mg 25 mg PO QPM #90 tabs 09/13/24 tablet,extended release 24 hr Held on 11/03/24. Instructions: Resume on 11/05/24. Bone Growth Stimulator #1 ea 11/03/24 hydroxyzine HCl 50 mg tablet 50 mg PO QID PRN insomnia/anxiety 11/07/24 #120 tabs sertraline 100 mg tablet (Zoloft) 200 mg (2 x 100 mg) PO DAILY #60 11/07/24 tabs trazodone 100 mg tablet See Rx Instructions .Route 11/07/24 .COMPLEX #60 tabs sulfamethoxazole 800 1 tab PO BID #20 tabs 11/29/24 mg-trimethoprim 160 mg tablet (Bactrim DS) hydrocodone 5 mg-acetaminophen 325 1 - 2 tab PO .Q4-6H PRN pain 7 12/09/24 mg tablet days #40 tabs pantoprazole 40 mg tablet,delayed 40 mg PO QPM #30 tabs 12/16/24 release tizanidine 4 mg capsule 4 mg PO BID PRN Spasms #180 caps 12/16/24 ropinirole 0.25 mg tablet 0.25 mg PO BEDTIME #30 tabs 12/19/24 atorvastatin 40 mg tablet See Rx Instructions .Route 12/23/24 .COMPLEX #90 tabs ondansetron HCl 4 mg tablet 4 mg PO Q8H PRN nausea and 12/23/24 vomiting #14 tabs hydrocodone 7.5 mg-acetaminophen 1 tab PO Q8H PRN pain 10 days #30 01/13/25 325 mg tablet tabs diazepam 2 mg tablet (Valium) 2 mg PO BID PRN muscle spasm #7 01/23/25 tabs Allergies Allergy/AdvReac Type Severity Reaction Status Date / Time metronidazole (From Flagyl) Allergy Unknown Verified 01/23/25 20:21 Review of Systems Const: Denies: fever(s), chills, body aches or change in appetite ENMT: Denies: throat pain or dental pain Card: Denies: chest pain Resp: Denies: dyspnea GI: Denies: abdominal pain, nausea, vomiting or diarrhea Musc: Reports: back pain; Denies: neck pain Skin/Breast: Denies: rash Neuro: Denies: headache(s) PFSH ED PFSH: Medical History CVA (cerebral vascular accident) TIA (transient ischemic attack) Psychiatric care Surgical History Status post lumbar spinal fusion History of tubal ligation History of gastric bypass x2 History of cholecystectomy Social History Smoking and tobacco/nicotine status: never used tobacco/nicotine Quit status (tobacco/nicotine): has quit using Year quit tobacco: 1989 Second hand smoke exposure: No Alcohol intake: former Year of sobriety/quit date alcohol: 1991 Substance/Drug Use: former Adopted: No Caregiver/support person: No Lives independently: No Household members: family Marital status: / Do you think of yourself as: Straight/Heterosexual Current gender identity: Female Physical Exam Const: COMMON NORMALS: no acute distress, patient oriented x3 and healthy appearing HENMT: COMMON NORMALS: normocephalic and atraumatic HEAD & SCALP: normocephalic and atraumatic Eye: COMMON NORMALS: conjunctivae normal CONJUNCTIVA: Yes conjunctivae normal Neck/C-Spine: COMMON NORMALS: full ROM and supple Chest: COMMONS NORMALS: normal inspection of the chest Resp: COMMON NORMALS: normal respiratory effort, No retractions, No use of accessory muscles and clear to auscultation bilaterally AUSCULTATION: clear to auscultation bilaterally Cardio: COMMON NORMALS: regular rate, regular rhythm and No murmurs present (Cardio) RATE: regular rate RHYTHM: regular rhythm GI: COMMON NORMALS: Normal to inspection, nondistended, normoactive bowel sounds present, Soft to palpation, non-tender and no masses PALPATION: Yes Soft to palpation Back/Pelvis: OTHER: Paraspinal tenderness no midline tenderness no saddle anesthesia Extremity: COMMON NORMALS: normal to inspection and full ROM Neuro: COMMON NORMALS: patient oriented x3, moves all extremities and no focal motor deficits Psych: COMMON NORMALS: mental status grossly normal, Normal thought process present and cooperative THOUGHT PROCESS: Normal thought process present Skin: COMMON NORMALS: no rashes or lesions noted and no wounds GENERAL SKIN EXAM: no rashes or lesions noted Course Vital Signs: Vital signs: Vital Signs Temperature 97.9 F 01/23/25 20:17 Pulse Rate 70 01/23/25 21:30 Respiratory Rate 18 01/23/25 20:17 Blood Pressure 125/66 01/23/25 21:30 Pulse Oximetry 96 01/23/25 21:30 Oxygen Delivery Me thod Room Air 01/23/25 21:30 MDM - Back Pain/Injury Medical Decision Making Patient presents here with back pain is chronic in nature her pain is much improved here she is been able to ambulate she has no signs no cord compression or epidural abscess she has follow-up on she is to follow-up as scheduled return if worsening. Medical Records I reviewed the patient's medical records. No radiology studies performed this visit Discharge Plan Discharge Patient Disposition: Home Clinical Impression: Low back pain Condition: Stable Prescriptions: New diazepam [Valium] 2 mg tablet 2 mg PO BID PRN (Reason: muscle spasm) Qty: 7 0RF No Action sulfamethoxazole-trimethoprim [Bactrim DS] 800-160 mg tablet 1 tab PO BID Qty: 20 0RF metoprolol succinate 25 mg tablet extended release 24 hr 25 mg PO QPM Qty: 90 0RF (DME) Bone Growth Stimulator See Rx Instructions .Route .MEDSUPPLY Qty: 1 0RF Rx Instructions: As directed hydroxyzine HCl 50 mg tablet 50 mg PO QID PRN (Reason: insomnia/anxiety) Qty: 120 2RF sertraline [Zoloft] 100 mg tablet 200 mg PO DAILY Qty: 60 2RF trazodone 100 mg tablet See Rx Instructions .ROUTE .COMPLEX Qty: 60 2RF Dose Instruction: TAKE 2 TABLETS BY MOUTH AT BEDTIME NEEDED FOR INSOMNIA Rx Instructions: TAKE 2 TABLETS BY MOUTH AT BEDTIME NEEDED FOR INSOMNIA hydrocodone-acetaminophen 5-325 mg tablet 1 - 2 tab PO .Q4-6H PRN (Reason: pain) 7 Days Qty: 40 0RF pantoprazole 40 mg tablet,delayed release (DR/EC) 40 mg PO QPM Qty: 30 0RF tizanidine 4 mg capsule 4 mg PO BID PRN (Reason: Spasms) Qty: 180 0RF ropinirole 0.25 mg tablet 0.25 mg PO BEDTIME Qty: 30 0RF atorvastatin 40 mg tablet See Rx Instructions .ROUTE .COMPLEX Qty: 90 0RF Dose Instruction: TAKE 1 TABLET BY MOUTH EVERY EVENING Rx Instructions: TAKE 1 TABLET BY MOUTH EVERY EVENING ondansetron HCl 4 mg tablet 4 mg PO Q8H PRN (Reason: nausea and vomiting) Qty: 14 0RF hydrocodone-acetaminophen 7.5-325 mg tablet 1 tab PO Q8H PRN (Reason: pain) 10 Days Qty: 30 0RF acetaminophen [Tylenol Arthritis Pain] 650 mg Tablet Extended Release 1,950 mg PO QID PRN (Reason: Pain) topiramate 25 mg capsule, sprinkle 25 mg PO QPM clopidogrel [Plavix] 75 mg tablet See Rx Instructions .ROUTE .COMPLEX Rx Instructions: TAKE 1 TABLET BY MOUTH DAILY Discharge Orders: Discharge ED (Routine); Ordered 01/23/25 Ordered By: Soraida Larkin Referrals: Salma Carrasco NP [Referring] - 4-7 days Discharge Diet: Advance as tolerated Discharge Activity: Resume usual activity Patient Instructions: Back Pain (ED) Print Language: [place] Islander Coding Level of Care Code ED 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
[2025-01-23] MEDS: HYDROmorphone 0.5 MG/0.5 ML INJ 1 MG IM (20:29)
[2025-01-23] MEDS: methocarbamol 750 mg Tablet 1500 MG PO (20:30)
[2025-01-23 20:33] VITALS: BP 144/78; PULSE 74; O2SAT 100
[2025-01-23 21:20] VITALS: BP 130/83; PULSE 72; O2SAT 100
[2025-01-23 21:30] VITALS: BP 125/66; PULSE 70; O2SAT 96
[2025-01-23] MEDS: diazePAM 2 mg Tablet PO (21:41)
[2025-01-23 21:59] VITALS: BP 125/88; PULSE 68; O2SAT 95
== END 2025-01-23 22:00 | disposition home or self-care (01) ==
PROVIDERS: Emergency Provider Emergency Medicine; PCP Nurse Practitioner Family
DX: M54.50 Low back pain, unspecified (principal); Z79.02 Long term (current) use of antithrombotics/antiplatelets; Z86.73 Personal history of transient ischemic attack (TIA), and cerebral infarction without residual deficits
CPT/HCPCS: 96372; 99284; J1171; J9999

== ENCOUNTER 2025-01-26 14:18 | Inpatient (IN) | payer MEDICARE, MEDICAID, SELFPAY ==
[2025-01-26] VITALS (12 sets, daily range): BP systolic 88–137; BP diastolic 41–64; PULSE 50–87; RESP 16–20; TEMP 36.3–36.9; O2SAT 91–100; BMI 32.1
--- NOTE | 2025-01-26 14:28 | XR_ITS ---
WS: [id number] Exam: XR hip BI 2V wo/w pel [id number] Date/Time of Exam: 01/26/2025 2:33 PM Reason For Exam: bilateral hip pain No acute fracture. Mild degenerative change of the joint compartment of the RIGHT hip. The joint space of the LEFT hip is well preserved. Normal bilateral soft tissues. Fusion hardware partially visualized in the lumbosacral region. XR/XR hip BI 2V wo/w pel [id number] IMPRESSION: 1. Mild DJD of the RIGHT hip. 2. The LEFT hip is unremarkable.
--- NOTE | 2025-01-26 14:28 | CT_ITS ---
WS: [id number] CT CERVICAL TRAUMA TECHNIQUE: Noncontrast CT of the cervical spine with coronal and sagittal reformatted images. CLINICAL INFORMATION: fall/head injury COMPARISON: None. DLP: 1402.[address] scans at [facility] use at least one of these dose optimization techniques: automated exposure control; mA and/or kV adjustment per patient size (includes targeted exams where dose is matched to clinical indication); or iterative reconstruction. FINDINGS: Straightening of the normal cervical lordosis. Moderate spondylotic changes. Disc osteophyte complexes at C5-C6 and C6-C7 with mild to moderate central canal stenosis moderate at C6-7. Normal craniocervical junction. Normal C1-C2 articulation. Dens is normal in appearance. Normal occipital condyles. Normal C1 ring. No evidence of acute fracture or dislocation. Normal prevertebral soft tissues. Mastoids air cells are well aerated. CT/CT cervical spin wo con* [id number] IMPRESSION: No evidence of acute fracture or dislocation.
--- NOTE | 2025-01-26 14:28 | CT_ITS ---
WS: [id number] CT LUMBAR SPINE TECHNIQUE: Noncontrast CT of the lumbar spine with coronal and sagittal reformatted images. CLINICAL INFORMATION: fall/low back pain COMPARISON: MRI 12/14/2024 DLP: 698.[address] scans at [facility] use at least one of these dose optimization techniques: automated exposure control; mA and/or kV adjustment per patient size (includes targeted exams where dose is matched to clinical indication); or iterative reconstruction. FINDINGS: Osteopenia. Exaggeration of the normal lumbar lordosis. Prior pedicle screw fixation L4-5 with interbody fusion graft. Subsidence involving the interbody fusion graft. Lucency along the LEFT L4 and L5 pedicle screws suspicious for loosening. Small compression fracture involving the superior endplate at L5 eccentric to the LEFT with subsidence from the interbody fusion graft in this location. Recommend follow-up spine surgery consultation. No high-grade central canal stenosis. CT/CT lumbar spine wo con* [id number] IMPRESSION: 1. Prior pedicle screw fixation L4-5 with interbody fusion graft. Subsidence a long the interbody fusion graft with endplate lucencies. 2. Mild compression with slight fragmentation along the LEFT superior endplate L5 suspicious for recent compression. This is in the area of graft subsidence with osteopenia. 3. Lucency along the LEFT L4 and L5 worse at L5 pedicle 4. No high-grade central canal stenosis.
--- NOTE | 2025-01-26 14:28 | CT_ITS ---
WS: [id number] CT HEAD TECHNIQUE: Noncontrast CT of the head obtained from the skullbase to the vertex. CLINICAL INFORMATION: fall/head injury COMPARISON: DLP: 1402.[address] scans at [facility] use at least one of these dose optimization techniques: automated exposure control; mA and/or kV adjustment per patient size (includes targeted exams where dose is matched to clinical indication); or iterative reconstruction. FINDINGS: No evidence of intracranial hemorrhage or mass effect. Mild small vessel changes. Mild parenchymal volume loss. Ventricular system and basal cisterns are patent. No extra-axial fluid collections. No evidence of mass or mass effect. Normal anderson-white differentiation. Paranasal sinuses and mastoid air cells are well aerated. .Normal visualized soft tissues. CT/CT head wo con* [id number] IMPRESSION: 1. No evidence of intracranial hemorrhage or mass effect. 2. No acute intracranial findings.
--- NOTE | 2025-01-26 14:28 | XR_ITS ---
WS: [email or web address] Exam: XR ankle LT min 3V* [id number] Date/Time of Exam: 01/26/2025 2:33 PM Reason For Exam: fall/ankle pain There is a nondisplaced fracture at the lower end of the fibula. Associated soft tissue swelling. No other fractures. The ankle mortise remains intact. XR/XR ankle LT min 3V* [id number] IMPRESSION: 1. Nondisplaced lower fibular fracture and soft tissue swelling.
--- NOTE | 2025-01-26 14:29 | ECG_ITS ---
[facility] Date: 2025-01-26 Pat Name: Bianca David Department: Room: Gender: Female Psychiatric Attendant: : 1955 Requested By: Gary Le Order Number: [id number] Johnnie MD: Uriel Smith M.D. Measurements Intervals [place] Rate: 52 P: 68 OR: 154 QRS: 42 QRSD: 95 T: 51 QT: 501 QTc: 467 Interpretive Statements SINUS BRADYCARDIA PROLONGED QT INTERVAL Compared to ECG 10/28/2023 17:37:36 Prolonged QT interval now present Sinus rhythm no longer present Electronically Signed On 01-28-2025 13:10:50 CDT by Uriel Smith M.D. [email or web address]
--- NOTE | 2025-01-26 14:30 | XR_ITS ---
WS: [email or web address] Exam: XR chest 1V portable [id number] Date/Time of Exam: 01/26/2025 2:33 PM Reason For Exam: fall/dizzy/lightheaded Comparison 10/28/2023. The lungs are fully inflated and clear. Normal cardiomediastinal silhouette and bony structures. Orthopedic anchors in the RIGHT humeral head. XR/XR chest 1V portable [id number] IMPRESSION: 1. Negative chest.
--- NOTE | 2025-01-26 14:40 | ED_ITS ---
Documented by User: NAYA Stevens 01/26/25 16:38 HPI - Weakness 2 General: Chief complaint: Weakness Stated complaint: fall - left ankle pain Time Seen by Provider: 01/26/25 14:19 Source: patient and EMS Mode of arrival: EMS Limitations: no limitations History of Present Illness: Patient is a 69-year-old female who presents the emergency department by ambulance due to a fall just prior to arrival. Patient reportedly was at home, she reports that she got weak, lightheaded, and dizzy and then suddenly passed out. Denies ever having this happen before. This was witnessed by family, who called the ambulance. Patient states she came to immediately on the ground, but did not get up until EMS arrived to assist her. EMS reports that they found her to be hypotensive, currently at this time at bedside she is 88/52 with her blood pressure, bradycardic as well. She states that she has a history of stroke, no history of IA or coronary artery disease. She is on a blood thinner and does report that she did hit her head and is currently having a headache and neck pain. No neurological symptoms were reported. Other pains reported are to her left ankle, as well as to her lower back and bilateral hips. Hx of lumbar fusion. She has not tried ambulating since this occurred. She is alert and oriented x 4 and at baseline mentation. She is not reporting any chest pain, shortness of breath, urinary symptoms, fevers, recent illness, new medication changes, or other pertinent historical factors at this time. MD Complaint: generalized weakness (fall/lightheaded/dizzy/hypotensive/bradycardiac) Onset (ago): minute(s) Location: generalized Associated symptoms: Reports headache(s) (head inj from fall) and syncope; Denies chest pain, chills, dysuria, fever(s), nausea or vomiting Review of Systems 2 General: Reports: 10 or more systems reviewed and unremarkable except in HPI and below Const: Denies: fever(s), chills or fatigue Eyes: Denies: change in vision ENMT: Denies: throat pain, ear or mastoid pain or nasal discharge Card: Reports: lightheadedness and syncope; Denies: chest pain, palpitations or swelling of feet/ankles Resp: Denies: dyspnea, productive cough or wheezing GI: Denies: abdominal pain, nausea, vomiting, diarrhea or constipation : Denies: flank pain, difficulty voiding, dysuria or urinary frequency Musc: Reports: neck pain, back pain, joint pain (left ankle, bilat hips) and joint swelling (left ankle) Skin/Breast: Denies: rash Neuro: Reports: headache(s) (head inj from fall), weakness in extremities and dizziness; Denies: numbness in extremities, Slurred speech present or seizure-like activity PFSH ED 2 PFSH: Medical History CVA (cerebral vascular accident) TIA (transient ischemic attack) Psychiatric care Surgical History Status post lumbar spinal fusion History of tubal ligation History of gastric bypass x2 History of cholecystectomy Social History Smoking and tobacco/nicotine status: never used tobacco/nicotine Quit status (tobacco/nicotine): has quit using Year quit tobacco: 1989 Second hand smoke exposure: No Alcohol intake: former Year of sobriety/quit date alcohol: 1991 Substance/Drug Use: former Adopted: No Caregiver/support person: No Lives independently: No Household members: family Marital status: / Do you think of yourself as: Straight/Heterosexual Current gender identity: Female Physical Exam 2 Const: COMMON NORMALS: no acute distress, patient oriented x3, no limitations and alert GENERAL APPEARANCE: cooperative ORIENTATION/CONSCIOUSNESS: Yes awake HENMT: COMMON NORMALS: normocephalic, atraumatic and Normal external nose present HEAD & SCALP: normocephalic and atraumatic; no Main's sign, no palpable skull fracture and no raccoon eyes FACE & SINUS: normal facial exam and face symmetric NOSE: Normal external nose present Eye: COMMON NORMALS: Equal, round and reactive pupils present, EOMs intact bilaterally and conjunctivae normal CONJUNCTIVA: Yes conjunctivae normal P UPIL: Yes Equal, round and reactive pupils present OTHER: eyes track midline Neck/C-Spine: CERVICAL SPINE: Yes collar present OTHER: No cervical spine tenderness or step-off deformity Chest: COMMONS NORMALS: normal inspection of the chest and normal palpation of entire chest wall Resp: COMMON NORMALS: normal respiratory effort, No retractions, No use of accessory muscles and clear to auscultation bilaterally AUSCULTATION: clear to auscultation bilaterally Cardio: COMMON NORMALS: regular rhythm, S1 normal heart sound present, S2 normal heart sound present and No murmurs present (Cardio) RATE: bradycardic RHYTHM: regular rhythm HEART SOUNDS: S1 normal heart sound present and S2 normal heart sound present GI: COMMON NORMALS: Normal to inspection, nondistended, normoactive bowel sounds present, Soft to palpation and non-tender PALPATION: Yes Soft to palpation RECTAL EXAM: visual inspection normal and heme negative stool O THER: central abd post op scar Back/Pelvis: OTHER: Tender to palpation lower back, pain with any range of motion, worse with flexion and extension. Positive straight leg raise on the left. post op lumbar scar Extremity: COMMON NORMALS: capillary refill normal and no pedal edema N ARRATIVE EXTREMITY EXAM: Mild swelling noted to left lateral ankle, tender to palpation and pain with any range of motion. Neuro: COMMON NORMALS: patient oriented x3, CN's II-XII intact bilaterally, moves all extremities, no focal motor deficits and no sensory deficits noted SENSORIUM/ORIENTATION: Yes alert Psych: COMMON NORMALS: mental status grossly normal Skin: COMMON NORMALS: no rashes or lesions noted GENERAL SKIN EXAM: no rashes or lesions noted Course 2 Vital Signs: Vital signs: Vital Signs Temperature 97.4 F L 01/26/25 14:19 Pulse Rate 54 L 01/26/25 14:26 Respiratory Rate 18 01/26/25 17:44 Blood Pressure 121/47 01/26/25 16:05 Pulse Oximetry 96 01/26/25 17:44 Oxygen Delivery Me thod Room Air 01/26/25 14:26 MDM - Weakness Medical Decision Making This patient arrived by ambulance for syncopal episode, stating she got dizzy and weak and suddenly fell. Ambulance arrived found her to be hypotensive and she has been bradycardic as well. 88/52 initially, started on a liter of fluids and pressure has improved since. She had noted pain to left ankle, bilateral hips and lower back, as well as to her head where she did hit her head and is on a blood thinner for history of CVA. Also has a history of 2 gastric bypass procedures, stating that 1 was complicated and required her to be transfused of blood. X-ray did show distal fibular fracture for which she is splinted and made nonweightbearing. CT head and neck were unremarkable, her c-collar was removed. Neurologically she has been intact and has been at baseline mentation of alert and oriented x 4. Lumbar spine CT showed questionable new compression fracture of L5, x-ray of the hips and pelvis were negative for any fracture. With her lab work, hemoglobin noted to be 8, which is down from 12.3 in September of last year. Patient denied any black or tarry stools, hematemesis or coffee- ground emesis, or other potential signs and symptoms of blood loss anemia. She states she has had colonoscopy in the past which have been unremarkable aside from a couple of polyps removed. At bedside Hemoccult testing showed no blood. Urinalysis still pending at this time, however the rest of her lab work essentially appeared okay. I spoke with on-call hospitalist, Dr. Slaughter, to discuss this patient's case and current findings. He agrees to accept to [facility] for anemia workup. Also consulted with general surgery, Dr. Rodriguez, who will consult the patient if requested. Patient informed of plan for admission and she agrees and all other questions and concerns addressed here. Discussed this patient with Dr. Chan here in the ED who is placing admit orders at this time. Lab Data 01/26/25 14:45 01/26/25 14:45 Radiology Impressions Ankle X-Ray 01/26/25 14:28 IMPRESSION: 1. Nondisplaced lower fibular fracture and soft tissue swelling. Cervical Spine CT 01/26/25 14:28 IMPRESSION: No evidence of acute fracture or dislocation. Head CT 01/26/25 14:28 IMPRESSION: 1. No evidence of intracranial hemorrhage or mass effect. 2. No acute intracranial findings. Hip/Pelvis X-Ray 01/26/25 14:28 IMPRESSION: 1. Mild DJD of the RIGHT hip. 2. The LEFT hip is unremarkable. Lumbar Spine CT 01/26/25 14:28 IMPRESSION: 1. Prior pedicle screw fixation L4-5 with interbody fusion graft. Subsidence along the interbody fusion graft with endplate lucencies. 2. Mild compression with slight fragmentation along the LEFT superior endplate L5 suspicious for recent compression. This is in the area of graft subsidence with osteopenia. 3. Lucency along the LEFT L4 and L5 worse at L5 pedicle 4. No high-grade central canal stenosis. Chest X-Ray 01/26/25 14:30 IMPRESSION: 1. Negative chest. Abdomen/Pelvis CT 01/26/25 15:00 IMPRESSION: 1. No evidence of acute abdominal or pelvic process. 2. Fat containing supraumbilical midline ventral hernia. COMMENTS: Consistent with the [employer]'s Incidental Findings Committee white paper (J Am Freida Radiol 2018): Any incidental renal lesion less than 1 cm or classified as too small to characterize, or any incidental cystic renal lesion characterized as simple-appearing, is likely benign. No follow-up imaging is recommended for these lesions per consensus recommendations based on imaging criteria. Laboratory Results WBC 9.36 10^3/uL (3.29-11.43) 01/26/25 14:45 RBC 3.07 10^6/uL (3.85-5.65) L 01/26/25 14:45 Hgb 8.00 g/dL (11.27-16.99) L 01/26/25 14:45 Hct 25.9 % (36-47) L 01/26/25 14:45 MCV 84.4 fl (85-98) L 01/26/25 14:45 MCH 26.1 pg (27-33) L 01/26/25 14:45 MCHC 30.9 g/dL (30-55) 01/26/25 14:45 RDW 17.7 % (12.1-15.1) H 01/26/25 14:45 Plt Count 305 10^3/cmm (157-399) 01/26/25 14:45 MPV 9.0 fL (7.4-10.4) 01/26/25 14:45 Neut % (Auto) 82.2 % 01/26/25 14:45 Lymph % (Auto) 10.7 % 01/26/25 14:45 [place] % (Auto) 4.9 % 01/26/25 14:45 Eos % (Auto) 1.2 % 01/26/25 14:45 Baso % (Auto) 0.3 % 01/26/25 14:45 Neut # (Auto) 7.69 10^3/uL (1.8-7.7) 01/26/25 14:45 Lymph # (Auto) 1.0 10^3/uL (0.8-4.8) 01/26/25 14:45 [place] # (Auto) 0.5 10^3/uL (0.2-0.9) 01/26/25 14:45 Eos # (Auto) 0.1 10^3/uL (0.0-0.8) 01/26/25 14:45 Baso # (Auto) 0.0 10^3/uL (0.0-0.1) 01/26/25 14:45 Nucleated RBC % (auto) 0 % 01/26/25 14:45 Nucleated RBCs # 0.0 /100WBC 01/26/25 14:45 PT 15.20 SECONDS (12.1-14.9) H 01/26/25 14:45 INR 1.12 (0.8-1.2) 01/26/25 14:45 APTT 34.9 SECONDS (23.9-36.7) 01/26/25 14:45 Sodium 138 mmol/L (136-145) 01/26/25 14:45 Potassium 4.3 mmol/L (3.5-5.1) 01/26/25 14:45 Chloride 103 mmol/L (98-107) 01/26/25 14:45 Carbon Dioxide 24 mmol/L (22-29) 01/26/25 14:45 Anion Gap 15.3 (5-19) 01/26/25 14:45 BUN 12 mg/dL (8-23) 01/26/25 14:45 Creatinine 0.9 mg/dL (0.5-0.9) 01/26/25 14:45 GFR Calculation 62.5 mL/min (90-130) L 01/26/25 14:45 Glucose 110 mg/dL (65-115) 01/26/25 14:45 Calculated Osmolality 286 mOsm/kg (285-295) 01/26/25 14:45 Lactic Acid 1.0 mmol/L (0.5-2.2) 01/26/25 14:45 Calcium 8.3 mg/dL (8.5-10.5) L 01/26/25 14:45 Magnesium 1.9 mg/dL (1.7-2.3) 01/26/25 14:45 Iron 22 ug/dL (37-145) L 01/26/25 14:45 TIBC 201 mcg/dl 01/26/25 14:45 % Saturation 10.9 % (20-50) L 01/26/25 14:45 Unsat Iron Binding 179 ug/dL (112-347) 01/26/25 14:45 Ferritin 132 ng/mL (15-150) 01/26/25 14:45 Total Bilirubin 0.2 mg/dL (0.15-1.2) 01/26/25 14:45 AST 14 U/L (0-32) 01/26/25 14:45 ALT 10 U/L (0-33) 01/26/25 14:45 Alkaline Phosphatase 167 U/L (35-105) H 01/26/25 14:45 Troponin T Baseline 26 ng/L (0-10) H 01/26/25 14:45 Troponin T 120 Minute 28.19 ng/L (0-10) H 01/26/25 16:36 Delta Troponin T 2.19 ABS# (0-10) 01/26/25 16:36 C-Reactive Protein 55.5 mg/L (0.0-4.9) H 01/26/25 14:45 Total Protein 5.8 g/dL (6.6-8.7) L 01/26/25 14:45 Albumin 2.8 g/dL (3.5-5.2) L 01/26/25 14:45 Globulin 3.0 g/dL (1.3-4.6) 01/26/25 14:45 Procalcitonin 0.06 ng/mL (0-0.5) 01/26/25 14:45 TSH 1.21 uIU/mL (0.27-4.20) 01/26/25 14:45 Urine Color Yellow (Yellow) 01/26/25 16:35 Urine Appearance Clear (CLEAR) 01/26/25 16:35 Urine pH 5 (5-7) 01/26/25 16:35 Ur Specific [place] 1.010 (1.005-1.030) 01/26/25 16:35 Urine Protein Neg (Negative) 01/26/25 16:35 Urine Glucose (UA) Norm (Normal) 01/26/25 16:35 Urine Ketones Negative (Negative) 01/26/25 16:35 Urine Blood Neg (Negative) 01/26/25 16:35 Urine Nitrate Negative (Negative) 01/26/25 16:35 Urine Bilirubin Neg (Negative) 01/26/25 16:35 Urine Urobilinogen Norm mg/dL (Negative) 01/26/25 16:35 Ur Leukocyte Esterase Negative (Negative) 01/26/25 16:35 Amorphous Sediment Not Reportable 01/26/25 16:35 All radiology interpretation(s) finalized by discharge Discharge Plan Discharge Patient Disposition: Admitted As Inpatient Clinical Impression: Syncope and collapse Anemia Qualifiers: Anemia type: unspecified type Qualified Code(s): D64.9 - Anemia, unspecified Closed left fibular fracture Qualifiers: Encounter type: initial encounter Fibula location: distal Fracture morphology: unspecified fracture morphology Qualified Code(s): S82.832A - Other fracture of upper and lower end of left fibula, initial encounter for closed fracture Closed compression fracture of lumbar vertebra Qualifiers: Encounter type: initial encounter Lumbar vertebra fracture level: L5 Qualified Code(s): S32.050A - Wedge compression fracture of fifth lumbar vertebra, initial encounter for closed fracture Condition: Stable Coding Level of Care Code ED Head Of Integrated Media for Chg Fwd Related Data Home Medications ?Medication ?Instructions ?Recorded ?Confirmed acetaminophen 650 mg 1,950 mg PO QID PRN Pain 03/0901/26/25 tablet,extended release (Tylenol Arthritis Pain) topiramate 25 mg sprinkle capsule 25 mg PO QPM 2 01/26/25 clopidogrel 75 mg tablet (Plavix) See Rx Instructions .Route .COMPLEX 11/02/24 01/26/25 Held on 11/03/24. Instructions: Resume on 11/05/24. metoprolol succinate 25 mg 25 mg PO QPM 01/26/2501/26 tablet,extended release 24 hr Previous Rx's ?Medication ?Instructions ?Recorded Bone Growth Stimulator #1 ea 11/03/24 hydroxyzine HCl 50 mg tablet 50 mg PO QID PRN insomnia /anxiety 11/07/24 #120 tabs sertraline 100 mg tablet (Zoloft) 200 mg (2 x 100 mg) PO DAILY #60 11/07/24 tabs trazodone 100 mg tablet See Rx Instructions .Route 0 11/07/24 .COMPLEX #60 tabs pantoprazole 40 mg tablet,delayed 40 mg PO QPM #30 tab s 02/28/25 release tizanidine 4 mg capsule 4 mg PO BID PRN Spasms #180 caps 12/16/24 ropinirole 0.25 mg tablet 0.25 mg PO BEDTIME #30 tabs 12/19/24 atorvastatin 40 mg tablet See Rx Instructions .Route 0 12/23/24 .COMPLEX #90 tabs ondansetron HCl 4 mg tablet 4 mg PO Q8H PRN nausea and 12/23/24 vomiting #14 tabs hydrocodone 7.5 mg-acetaminophen 1 tab PO Q8H PRN pain 10 days #30 01/13/25 325 mg tablet tabs diazepam 2 mg tablet (Valium) 2 mg PO BID PRN muscle s pasm #7 01/23/25 tabs Allergies Allergy/AdvReac Type Severity Reaction Status Date / Time metronidazole (From Flagyl) Allergy Unknown Verified 01/23/25 20:21 Documented by User: Tyler Edouard DO 01/26/25 17:55 HPI - Weakness 2 General: Chief complaint: Weakness Stated complaint: fall - left ankle pain Time Seen by Provider: 01/26/25 14:19 PFSH ED 2 PFSH: Medical History CVA (cerebral vascular accident) TIA (transient ischemic attack) Psychiatric care Surgical History Status post lumbar spinal fusion History of tubal ligation History of gastric bypass x2 History of cholecystectomy Social History Smoking and tobacco/nicotine status: never used tobacco/nicotine Quit status (tobacco/nicotine): has quit using Year quit tobacco: 1989 Second hand smoke exposure: No Alcohol intake: former Year of sobriety/quit date alcohol: 1991 Substance/Drug Use: former Adopted: No Caregiver/support person: No Lives independently: No Household members: family Marital status: / Do you think of yourself as: Straight/Heterosexual Current gender identity: Female Course 2 Vital Signs: Vital signs: Vital Signs Temperature 97.4 F L 01/26/25 14:19 Pulse Rate 54 L 01/26/25 14:26 Respiratory Rate 18 01/26/25 17:44 Blood Pressure 121/47 01/26/25 16:05 Pulse Oximetry 96 01/26/25 17:44 Oxygen Delivery Me thod Room Air 01/26/25 14:26 MDM - Weakness Medical Decision Making This patient arrived by ambulance for syncopal episode, stating she got dizzy and weak and suddenly fell. Ambulance arrived found her to be hypotensive and she has been bradycardic as well. 88/52 initially, started on a liter of fluids and pressure has improved since. She had noted pain to left ankle, bilateral hips and lower back, as well as to her head where she did hit her head and is on a blood thinner for history of CVA. Also has a history of 2 gastric bypass procedures, stating that 1 was complicated and required her to be transfused of blood. X-ray did show distal fibular fracture for which she is splinted and made nonweightbearing. CT head and neck were unremarkable, her c-collar was removed. Neurologically she has been intact and has been at baseline mentation of alert and oriented x 4. Lumbar spine CT showed questionable new compression fracture of L5, x-ray of the hips and pelvis were negative for any fracture. With her lab work, hemoglobin noted to be 8, which is down from 12.3 in September of last year. Patient denied any black or tarry stools, hematemesis or coffee- ground emesis, or other potential signs and symptoms of blood loss anemia. She states she has had colonoscopy in the past which have been unremarkable aside from a couple of polyps removed. At bedside Hemoccult testing showed no blood. Urinalysis still pending at this time, however the rest of her lab work essentially appeared okay. I spoke with on-call hospitalist, Dr. Slaughter, to discuss this patient's case and current findings. He agrees to accept to [facility] for anemia workup. Also consulted with general surgery, Dr. Rodriguez, who will consult the patient if requested. Patient informed of plan for admission and she agrees and all other questions and concerns addressed here. Discussed this patient with Dr. Chan here in the ED who is placing admit orders at this time. Chart reviewed and patient discussed with midlevel. Agree with assessment and plan. Lab Data 01/26/25 14:45 01/26/25 14:45 Radiology Impressions Ankle X-Ray 01/26/25 14:28 IMPRESSION: 1. Nondisplaced lower fibular fracture and soft tissue swelling. Cervical Spine CT 01/26/25 14:28 IMPRESSION: No evidence of acute fracture or dislocation. Head CT 01/26/25 14:28 IMPRESSION: 1. No evidence of intracranial hemorrhage or mass effect. 2. No acute intracranial findings. Hip/Pelvis X-Ray 01/26/25 14:28 IMPRESSION: 1. Mild DJD of the RIGHT hip. 2. The LEFT hip is unremarkable. Lumbar Spine CT 01/26/25 14:28 IMPRESSION: 1. Prior pedicle screw fixation L4-5 with interbody fusion graft. Subsidence along the interbody fusion graft with endplate lucencies. 2. Mild compression with slight fragmentation along the LEFT superior endplate L5 suspicious for recent compression. This is in the area of graft subsidence with osteopenia. 3. Lucency along the LEFT L4 and L5 worse at L5 pedicle 4. No high-grade central canal stenosis. Chest X-Ray 01/26/25 14:30 IMPRESSION: 1. Negative chest. Abdomen/Pelvis CT 01/26/25 15:00 IMPRESSION: 1. No evidence of acute abdominal or pelvic process. 2. Fat containing supraumbilical midline ventral hernia. COMMENTS: Consistent with the [employer]'s Incidental Findings Committee white paper (J Am Freida Radiol 2018): Any incidental renal lesion less than 1 cm or classified as too small to characterize, or any incidental cystic renal lesion characterized as simple-appearing, is likely benign. No follow-up imaging is recommended for these lesions per consensus recommendations based on imaging criteria. Laboratory Results WBC 9.36 10^3/uL (3.29-11.43) 01/26/25 14:45 RBC 3.07 10^6/uL (3.85-5.65) L 01/26/25 14:45 Hgb 8.00 g/dL (11.27-16.99) L 01/26/25 14:45 Hct 25.9 % (36-47) L 01/26/25 14:45 MCV 84.4 fl (85-98) L 01/26/25 14:45 MCH 26.1 pg (27-33) L 01/26/25 14:45 MCHC 30.9 g/dL (30-55) 01/26/25 14:45 RDW 17.7 % (12.1-15.1) H 01/26/25 14:45 Plt Count 305 10^3/cmm (157-399) 01/26/25 14:45 MPV 9.0 fL (7.4-10.4) 01/26/25 14:45 Neut % (Auto) 82.2 % 01/26/25 14:45 Lymph % (Auto) 10.7 % 01/26/25 14:45 [place] % (Auto) 4.9 % 01/26/25 14:45 Eos % (Auto) 1.2 % 01/26/25 14:45 Baso % (Auto) 0.3 % 01/26/25 14:45 Neut # (Auto) 7.69 10^3/uL (1.8-7.7) 01/26/25 14:45 Lymph # (Auto) 1.0 10^3/uL (0.8-4.8) 01/26/25 14:45 [place] # (Auto) 0.5 10^3/uL (0.2-0.9) 01/26/25 14:45 Eos # (Auto) 0.1 10^3/uL (0.0-0.8) 01/26/25 14:45 Baso # (Auto) 0.0 10^3/uL (0.0-0.1) 01/26/25 14:45 Nucleated RBC % (auto) 0 % 01/26/25 14:45 Nucleated RBCs # 0.0 /100WBC 01/26/25 14:45 PT 15.20 SECONDS (12.1-14.9) H 01/26/25 14:45 INR 1.12 (0.8-1.2) 01/26/25 14:45 APTT 34.9 SECONDS (23.9-36.7) 01/26/25 14:45 Sodium 138 mmol/L (136-145) 01/26/25 14:45 Potassium 4.3 mmol/L (3.5-5.1) 01/26/25 14:45 Chloride 103 mmol/L (98-107) 01/26/25 14:45 Carbon Dioxide 24 mmol/L (22-29) 01/26/25 14:45 Anion Gap 15.3 (5-19) 01/26/25 14:45 BUN 12 mg/dL (8-23) 01/26/25 14:45 Creatinine 0.9 mg/dL (0.5-0.9) 01/26/25 14:45 GFR Calculation 62.5 mL/min (90-130) L 01/26/25 14:45 Glucose 110 mg/dL (65-115) 01/26/25 14:45 Calculated Osmolality 286 mOsm/kg (285-295) 01/26/25 14:45 Lactic Acid 1.0 mmol/L (0.5-2.2) 01/26/25 14:45 Calcium 8.3 mg/dL (8.5-10.5) L 01/26/25 14:45 Magnesium 1.9 mg/dL (1.7-2.3) 01/26/25 14:45 Iron 22 ug/dL (37-145) L 01/26/25 14:45 TIBC 201 mcg/dl 01/26/25 14:45 % Saturation 10.9 % (20-50) L 01/26/25 14:45 Unsat Iron Binding 179 ug/dL (112-347) 01/26/25 14:45 Ferritin 132 ng/mL (15-150) 01/26/25 14:45 Total Bilirubin 0.2 mg/dL (0.15-1.2) 01/26/25 14:45 AST 14 U/L (0-32) 01/26/25 14:45 ALT 10 U/L (0-33) 01/26/25 14:45 Alkaline Phosphatase 167 U/L (35-105) H 01/26/25 14:45 Troponin T Baseline 26 ng/L (0-10) H 01/26/25 14:45 Troponin T 120 Minute 28.19 ng/L (0-10) H 01/26/25 16:36 Delta Troponin T 2.19 ABS# (0-10) 01/26/25 16:36 C-Reactive Protein 55.5 mg/L (0.0-4.9) H 01/26/25 14:45 Total Protein 5.8 g/dL (6.6-8.7) L 01/26/25 14:45 Albumin 2.8 g/dL (3.5-5.2) L 01/26/25 14:45 Globulin 3.0 g/dL (1.3-4.6) 01/26/25 14:45 Procalcitonin 0.06 ng/mL (0-0.5) 01/26/25 14:45 TSH 1.21 uIU/mL (0.27-4.20) 01/26/25 14:45 Urine Color Yellow (Yellow) 01/26/25 16:35 Urine Appearance Clear (CLEAR) 01/26/25 16:35 Urine pH 5 (5-7) 01/26/25 16:35 Ur Specific [place] 1.010 (1.005-1.030) 01/26/25 16:35 Urine Protein Neg (Negative) 01/26/25 16:35 Urine Glucose (UA) Norm (Normal) 01/26/25 16:35 Urine Ketones Negative (Negative) 01/26/25 16:35 Urine Blood Neg (Negative) 01/26/25 16:35 Urine Nitrate Negative (Negative) 01/26/25 16:35 Urine Bilirubin Neg (Negative) 01/26/25 16:35 Urine Urobilinogen Norm mg/dL (Negative) 01/26/25 16:35 Ur Leukocyte Esterase Negative (Negative) 01/26/25 16:35 Amorphous Sediment Not Reportable 01/26/25 16:35 Discharge Plan Discharge Patient Disposition: Admitted As Inpatient Clinical Impression: Syncope and collapse Anemia Qualifiers: Anemia type: unspecified type Qualified Code(s): D64.9 - Anemia, unspecified Closed left fibular fracture Qualifiers: Encounter type: initial encounter Fibula location: distal Fracture morphology: unspecified fracture morphology Qualified Code(s): S82.832A - Other fracture of upper and lower end of left fibula, initial encounter for closed fracture Closed compression fracture of lumbar vertebra Qualifiers: Encounter type: initial encounter Lumbar vertebra fracture level: L5 Qualified Code(s): S32.050A - Wedge compression fracture of fifth lumbar vertebra, initial encounter for closed fracture Condition: Stable Coding Level of Care Code ED Head Of [employer] for Chg Fwd Related Data Home Medications ?Medication ?Instructions ?Recorded ?Confirmed acetaminophen 650 mg 1,950 mg PO QID PRN Pain 03/0901/26/25 tablet,extended release (Tylenol Arthritis Pain) topiramate 25 mg sprinkle capsule 25 mg PO QPM 2 01/26/25 clopidogrel 75 mg tablet (Plavix) See Rx Instructions .Route .COMPLEX 11/02/24 01/26/25 Held on 11/03/24. Instructions: Resume on 11/05/24. metoprolol succinate 25 mg 25 mg PO QPM 01/26/2501/26 tablet,extended release 24 hr Previous Rx's ?Medication ?Instructions ?Recorded Bone Growth Stimulator #1 ea 11/03/24 hydroxyzine HCl 50 mg tablet 50 mg PO QID PRN insomnia /anxiety 11/07/24 #120 tabs sertraline 100 mg tablet (Zoloft) 200 mg (2 x 100 mg) PO DAILY #60 11/07/24 tabs trazodone 100 mg tablet See Rx Instructions .Route 0 11/07/24 .COMPLEX #60 tabs pantoprazole 40 mg tablet,delayed 40 mg PO QPM #30 tab s 12/16/24 release tizanidine 4 mg capsule 4 mg PO BID PRN Spasms #180 caps 12/16/24 ropinirole 0.25 mg tablet 0.25 mg PO BEDTIME #30 tabs 12/19/24 atorvastatin 40 mg tablet See Rx Instructions .Route 0 12/23/24 .COMPLEX #90 tabs ondansetron HCl 4 mg tablet 4 mg PO Q8H PRN nausea and 12/23/24 vomiting #14 tabs hydrocodone 7.5 mg-acetaminophen 1 tab PO Q8H PRN pain 10 days #30 01/13/25 325 mg tablet tabs diazepam 2 mg tablet (Valium) 2 mg PO BID PRN muscle s pasm #7 01/23/25 tabs Allergies Allergy/AdvReac Type Severity Reaction Status Date / Time metronidazole (From Flagyl) Allergy Unknown Verified 01/23/25 20:21
[2025-01-26] MEDS: sodium chloride 0.9% 1,000 ML 999 ML IV (14:51)
[2025-01-26 14:59] LABS: Basophils % 0.3 %; Eosinophils # 0.1 10^3/uL (0.0-0.8); Eosinophils % 1.2 %; Hematocrit 25.9 % (36-47); Lymphocytes % 10.7 %; Mean Corpuscular HGB Conc 30.9 g/dL (30-55); Mean Corpuscular Hemoglobin 26.1 pg (27-33); Mean Corpuscular Volume 84.4 fl (85-98); Monocytes # 0.5 10^3/uL (0.2-0.9); Monocytes % 4.9 %; Neutrophils # 7.69 10^3/uL (1.8-7.7); Neutrophils % 82.2 %; Nucleated Red Blood Cells % 0 %; Platelet Count 305 10^3/cmm (157-399); Red Blood Count 3.07 10^6/uL (3.85-5.65); Red Cell Distribution Width 17.7 % (12.1-15.1); White Blood Count 9.36 10^3/uL (3.29-11.43)
--- NOTE | 2025-01-26 15:00 | CTR_ITS ---
PROCEDURE INFORMATION: Exam: CT Abdomen And Pelvis With Contrast Exam date and time: 01/26/2025 3:44 PM Age: 69 years old Clinical indication: Other: Dizzy, lightheaded; Additional info: Dizzy, lightheaded, anemia TECHNIQUE: Imaging protocol: Computed tomography of the abdomen and pelvis with contrast. Radiation optimization: All CT scans at this facility use at least one of these dose optimization techniques: automated exposure control; mA and/or kV adjustment per patient size (includes targeted exams where dose is matched to clinical indication); or iterative reconstruction. Contrast material: OMNIPAQUE 350; Contrast volume: 100 ml; Contrast route: INTRAVENOUS (IV); COMPARISON: 1. CT abdomen pelvis wo con [id number] 08/01/2024 3:[address] abdomen pelvis w con* [id number] 12/25/2023 3:19 AM RADIATION DOSE METRICS: Total DLP (mGy-cm): 729.65 FINDINGS: Liver: Normal. No mass. Gallbladder and biliary ducts: Status post cholecystectomy. No evidence of significant biliary obstruction. Pancreas: Normal. No ductal dilation. Spleen: Normal. No splenomegaly. Adrenal glands: Normal. No mass. Kidneys and ureters: Multiple bilateral simple renal cysts measuring up to 3 cm on the right. Stable 19 mm exophytic slightly hyperdense lesion in the mid left kidney, likely representing a hyperdense cyst. Stomach and bowel: Postoperative changes from Cira-en-Y gastric bypass. Bowel is normal in caliber. Appendix: No evidence of appendicitis. Intraperitoneal space: Unremarkable. No free air. No significant fluid collection. Vasculature: Aortoiliac atherosclerotic disease is seen without evidence of aneurysm. Lymph nodes: Unremarkable. No enlarged lymph nodes. Urinary bladder: Unremarkable as visualized. Reproductive: 3 cm right ovarian cyst. Bones/joints: Interval instrumented posterior spinal fusion and laminectomy L4-L5. Interbody spacer has been placed. Soft tissues: Fat containing supraumbilical midline ventral hernia. CT/CT abdomen pelvis w con* [id number] IMPRESSION: 1. No evidence of acute abdominal or pelvic process. 2. Fat containing supraumbilical midline ventral hernia. COMMENTS: Consistent with the [employer]'s Incidental Findings Committee white paper (J Am Freida Radiol 2018): Any incidental renal lesion less than 1 cm or classified as too small to characterize, or any incidental cystic renal lesion characterized as simple-appearing, is likely benign. No follow-up imaging is recommended for these lesions per consensus recommendations based on imaging criteria.
[2025-01-26 15:15] LABS: INR 1.12 (0.8-1.2); Troponin(5th) Baseline 26 ng/L (0-10)
[2025-01-26 15:16] LABS: Partial Thromboplastin Time 34.9 SECONDS (23.9-36.7)
[2025-01-26 15:18] LABS: Alanine Aminotransferase 10 U/L (0-33); Albumin Level 2.8 g/dL (3.5-5.2); Alkaline Phosphatase 167 U/L (35-105); Anion Gap 15.3 (5-19); Aspartate Amino Transferase 14 U/L (0-32); Blood Urea Nitrogen 12 mg/dL (8-23); Calcium 8.3 mg/dL (8.5-10.5); Carbon Dioxide 24 mmol/L (22-29); Chloride 103 mmol/L (98-107); Creatinine Clr Calc Pharmacy 57.9038; Glomerular Filtration Rate 62.5 mL/min (90-130); Glucose 110 mg/dL (65-115); Magnesium 1.9 mg/dL (1.7-2.3); Osmolality Calculated 286 mOsm/kg (285-295); Potassium 4.3 mmol/L (3.5-5.1); Sodium 138 mmol/L (136-145); Total Bilirubin 0.2 mg/dL (0.15-1.2); Total Protein 5.8 g/dL (6.6-8.7)
[2025-01-26 15:45] LABS: Thyroid Stimulating Hormone 1.21 uIU/mL (0.27-4.20)
[2025-01-26] MEDS: iohexol 350 mg/mL 500 mL Btl (per mL) IV (15:49)
--- NOTE | 2025-01-26 15:52 | DCPLANNER ---
messaged podiatry for er f/u
--- NOTE | 2025-01-26 16:38 | ECG_ITS ---
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 Measurements Intervals [place] Rate: 65 P: 68 [place]: 155 QRS: 49 QRSD: 86 T: 49 QT: 435 QTc: 453 Interpretive Statements SINUS RHYTHM WITH SINUS ARRHYTHMIA Compared to ECG 01/26/2025 15:02:41 Sinus bradycardia no longer present Prolonged QT interval no longer present Electronically Signed On 01-28-2025 13:26:29 CDT by Uriel Smith M.D. [email or web address]
--- NOTE | 2025-01-26 16:42 | P.HP_ITS ---
Providers/Chief Complaint 2 Primary Care Provider: FILEMON Umaña Chief Complaint: fall - left ankle pain History of Present Illness Bianca David is a 69 year old female with a past medical history of recent lower lumbar surgery, CVA, TIA, who presents [facility] for presyncopal episode and fall. According to patient she was at home, when she was standing, she got weak, lightheaded and she went down to the ground, she denies really passing out, does report hitting her head, no preceding chest pain or palpitations or shortness of breath, no nausea, vomiting, no abdominal pain, no fevers, no chills she was hypotensive on arrival blood pressure 88/52, was bradycardic, denies any focal weakness, no slurring of words, no paresthesias, no headache, blurry vision, she was found to have a fibular fracture which was splinted in the emergency room, Review of Systems 2 Const: Reports: fatigue and malaise; Denies: fever(s) or chills Card: Denies: chest pain Resp: Denies: dyspnea GI: Denies: abdominal pain : Denies: flank pain Musc: Denies: neck pain Neuro: Denies: headache(s) or numbness in extremities Medications/Allergies Home Medications ?Medication ?Instructions ?Recorded ?Confirmed ?Last Taken ?Type acetaminophen 650 mg 1,950 mg PO QID PRN Pain 03/0901/26/25 08/24/24 History tablet,extended release (Tylenol Arthritis Pain) topiramate 25 mg sprinkle capsule 25 mg PO QPM 2 01/26/25 11/01/24 History clopidogrel 75 mg tablet (Plavix) See Rx Instructions .Route .COMPLEX 11/02/24 01/26/25 10/19/24 History Held on 11/03/24. Instructions: Resume on 11/05/24. Bone Growth Stimulator #1 ea 11/03/24 01/26/25 Unkn own Rx hydroxyzine HCl 50 mg tablet 50 mg PO QID PRN insomnia /anxiety 11/07/24 01/26/25 Unknown Rx #120 tabs sertraline 100 mg tablet (Zoloft) 200 mg (2 x 100 mg) PO DAILY #60 11/07/24 01/26/25 Unknown Rx tabs trazodone 100 mg tablet See Rx Instructions .Route 0 11/07/24 01/26/25 01/25/25 Rx .COMPLEX #60 tabs pantoprazole 40 mg tablet,delayed 40 mg PO QPM #30 tab s 12/16/24 01/26/25 Unknown Rx release tizanidine 4 mg capsule 4 mg PO BID PRN Spasms #180 caps 12/16/24 01/26/25 01/26/25 Rx ropinirole 0.25 mg tablet 0.25 mg PO BEDTIME #30 tabs 12/19/24 01/26/25 01/25/25 Rx atorvastatin 40 mg tablet See Rx Instructions .Route 0 12/23/24 01/26/25 01/25/25 Rx .COMPLEX #90 tabs ondansetron HCl 4 mg tablet 4 mg PO Q8H PRN nausea and 12/23/24 01/26/25 Unknown Rx vomiting #14 tabs hydrocodone 7.5 mg-acetaminophen 1 tab PO Q8H PRN pain 10 days #30 01/13/25 01/26/25 01/26/25 Rx 325 mg tablet tabs diazepam 2 mg tablet (Valium) 2 mg PO BID PRN muscle s pasm #7 01/23/25 01/26/25 01/25/25 Rx tabs metoprolol succinate 25 mg 25 mg PO QPM 01/26/2501/26 Unknown History tablet,extended release 24 hr Allergies Allergy/AdvReac Type Severity Reaction Status Date / Time metronidazole (From Flagyl) Allergy Unknown Verified 01/23/25 20:21 PFSH Acute 2 PFSH: Medical History CVA (cerebral vascular accident) TIA (transient ischemic attack) Psychiatric care Surgical History Status post lumbar spinal fusion History of tubal ligation History of gastric bypass x2 History of cholecystectomy Social History Smoking and tobacco/nicotine status: never used tobacco/nicotine Quit status (tobacco/nicotine): has quit using Year quit tobacco: 1989 Second hand smoke exposure: No Alcohol intake: former Year of sobriety/quit date alcohol: 1991 Substance/Drug Use: former Adopted: No Caregiver/support person: No Lives independently: No Household members: family Marital status: / Do you think of yourself as: Straight/Heterosexual Current gender identity: Female Vitals/I&O/Wt Last Vital Signs Temp 97.4 F L 01/26/25 14:19 Pulse 54 L 01/26/25 14:26 Resp 16 01/26/25 14:19 BP 121/47 01/26/25 16:05 Pulse Ox 100 01/26/25 16:05 O2 Del Method Room Air 01/26/25 14:26 Weight last 48 hrs Weight 72.575 kg Physical Exam 2 Const: COMMON NORMALS: no acute distress and patient oriented x3 Eye: COMMON NORMALS: Equal, round and reactive pupils present and EOMs intact bilaterally Resp: COMMON NORMALS: normal respiratory effort, No retractions, No use of accessory muscles and clear to auscultation bilaterally AUSCULTATION: clear to auscultation bilaterally Cardio: COMMON NORMALS: no JVD, regular rate, regular rhythm, S1 normal heart sound present and S2 normal heart sound present RATE: regular rate RHYTHM: regular rhythm HEART SOUNDS: S1 normal heart sound present and S2 normal heart sound present GI: COMMON NORMALS: Normal to inspection, nondistended, normoactive bowel sounds present, Soft to palpation and non-tender Extremity: COMMON NORMALS: no pedal edema Neuro: COMMON NORMALS: patient oriented x3 Psych: COMMON NORMALS: mental status grossly normal Data 01/26/25 14:45 01/26/25 14:45 A&P Assessment and plan (1) Acute anemia: (2) Bradycardia: (3) Closed fibular fracture: Plan Syncope - Etiology unclear - Could be a component of anemia, Hemoccult stool negative in the emergency room, will check iron studies, monitor hemoglobin, hold off on blood thinners, does take Plavix on hold, ER provider has consulted general surgery for consideration of EGD and colonoscopy, Protonix, Carafate - Bradycardia, EKG shows sinus bradycardia, prolonged QT, monitor, magnesium 1.9 - UA pending - She recently was started on diazepam certainly polypharmacy could be playing a role - Lactic acid has been ordered - Telemetry monitoring, serial EKGs, serial troponins, troponin monitoring - Cardiac echo, carotid ultrasound - CRP, Pro-Maciej -Start IV fluids -Full code -SCDs for DVT prophylaxis - Patient requires hospitalization for syncopal episode PDMP PDMP Reviewed: Last Reviewed 01/26/25 16:35 by Ja Slaughter MD Attestations 2 Medical Necessity Statement*: Patient requires hospitalization for syncopal episode, requiring inpatient mission, greater than 2 midnights Diagnoses Acute anemia D64.9 Bradycardia R00.1 Closed fibular fracture S82.409A
[2025-01-26 16:45] LABS: Add Urine Microscopic? NO
[2025-01-26 16:51] LABS: Urine Appearance Clear (CLEAR); Urine Color Yellow (Yellow)
[2025-01-26 16:52] LABS: Bilirubin Urine Neg (Negative); Blood Urine Neg (Negative); Charge for UA Resulting for Rev; Glucose Urine UA Norm (Normal); Ketones Urine Negative (Negative); Leukocyte Esterase Urine Negative (Negative); Nitrate Urine Negative (Negative); Protein Urine Neg (Negative); Urobilinogen Urine Norm (Negative); pH Urine 5 (5-7)
[2025-01-26 17:25] LABS: Troponin 5 2HR 28.19 ng/L (0-10); Troponin 5 2HR Delta 2.19 ABS# (0-10)
[2025-01-26 17:36] LABS: Procalcitonin 0.06 ng/mL (0-0.5)
[2025-01-26] MEDS: morphine 4 mg/mL SDV 1 mL 2 MG IVP (17:44)
[2025-01-26 17:47] LABS: C Reactive Protein 55.5 mg/L (0.0-4.9); Ferritin 132 ng/mL (15-150); Iron 22 ug/dL (37-145); Percent Saturation 10.9 % (20-50); Total Iron Binding Capacity 201 mcg/dl; Unsaturated Iron Binding 179 ug/dL (112-347)
--- NOTE | 2025-01-26 19:59 | PC.NURSE ---
after being brought room, patient asked this cemetery laborer if there was a way that the cemetery laborer could help her without either of them getting in trouble, she asked if this cemetery laborer had anything that could knock her out for at least an hour, she cant wait for her pain meds to be available. cemetery laborer educated patient that any form of meds would come from dr orders and straight from nurse staff only. nurse notified
[2025-01-26 20:22] LABS: Thyroid Stimulating Hormone 1.02 uIU/mL (0.27-4.20)
[2025-01-26] MEDS: sucralfate 1 gm/10 mL Oral Liq UDC PO (20:29)
[2025-01-26] MEDS: ropinirole 0.25 mg Tablet PO (20:30)
[2025-01-26] MEDS: pantoprazole 40 mg SDV IVP (20:30)
[2025-01-26] MEDS: HYDROcodone-acetaminophen 7.5-325 mg Tablet 1 TAB PO (20:30)
[2025-01-26] MEDS: sodium chloride 0.9% 1,000 ML 75 ML IV (20:34)
[2025-01-26] MEDS: tizanidine 4 mg Tablet PO (20:59)
[2025-01-26 21:39] LABS: Troponin 5 6HR 28.12 ng/L (0-10); Troponin 5 6HR Delta 2.12 ng/L (0-12)
--- NOTE | 2025-01-26 23:53 | ECG_ITS ---
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 Measurements Intervals [place] Rate: 75 P: 64 [place]: 155 QRS: 43 QRSD: 91 T: 47 QT: 416 QTc: 468 Interpretive Statements SINUS RHYTHM Compared to ECG 01/26/2025 16:38:06 Sinus arrhythmia no longer present Electronically Signed On 01-28-2025 13:25:55 CDT by Uriel Smith M.D. [email or web address] [id number]
[2025-01-27] VITALS (12 sets, daily range): BP systolic 101–128; BP diastolic 61–84; PULSE 76–117; RESP 16–21; TEMP 36.5–37.3; O2SAT 92–98
[2025-01-27] MEDS: acetaminophen 325 mg Tablet 650 MG PO (00:32)
[2025-01-27] MEDS: morphine 4 mg/mL SDV 1 mL 2 MG IVP ×4 (01:41→20:15)
[2025-01-27] MEDS: HYDROcodone-acetaminophen 7.5-325 mg Tablet 1 TAB PO ×2 (04:15→16:18)
[2025-01-27 05:29] LABS: Basophils % 0.5 %; Eosinophils # 0.1 10^3/uL (0.0-0.8); Eosinophils % 1.6 %; Hematocrit 27.1 % (36-47); Lymphocytes # 1.2 10^3/uL (0.8-4.8); Lymphocytes % 15.2 %; Mean Corpuscular HGB Conc 31.7 g/dL (30-55); Mean Corpuscular Hemoglobin 26.1 pg (27-33); Mean Corpuscular Volume 82.1 fl (85-98); Monocytes # 0.5 10^3/uL (0.2-0.9); Monocytes % 5.8 %; Neutrophils # 6.03 10^3/uL (1.8-7.7); Neutrophils % 76.4 %; Nucleated Red Blood Cells % 0 %; Platelet Count 394 10^3/cmm (157-399); Red Cell Distribution Width 17.2 % (12.1-15.1)
[2025-01-27 05:55] LABS: Albumin Level 2.8 g/dL (3.5-5.2); Alkaline Phosphatase 174 U/L (35-105); Chloride 103 mmol/L (98-107); Potassium 3.9 mmol/L (3.5-5.1); Sodium 136 mmol/L (136-145)
[2025-01-27 06:11] LABS: Alanine Aminotransferase 10 U/L (0-33); Anion Gap 13.9 (5-19); Aspartate Amino Transferase 13 U/L (0-32); Blood Urea Nitrogen 9 mg/dL (8-23); Calcium 8.7 mg/dL (8.5-10.5); Carbon Dioxide 23 mmol/L (22-29); Globulin 3.5 g/dL (1.3-4.6); Glomerular Filtration Rate 83.5 mL/min (90-130); Glucose 78 mg/dL (65-115); Magnesium 1.8 mg/dL (1.7-2.3); Osmolality Calculated 280 mOsm/kg (285-295); Phosphorus 3.1 mg/dL (2.5-4.5); Total Bilirubin 0.3 mg/dL (0.15-1.2); Total Protein 6.3 g/dL (6.6-8.7)
[2025-01-27] MEDS: sucralfate 1 gm/10 mL Oral Liq UDC PO ×2 (08:45→20:18)
[2025-01-27] MEDS: pantoprazole 40 mg SDV IVP ×2 (08:45→20:15)
[2025-01-27] MEDS: sodium chloride 0.9% 1,000 ML 75 ML IV (08:46)
[2025-01-27] MEDS: tizanidine 4 mg Tablet PO ×2 (09:53→21:08)
--- NOTE | 2025-01-27 09:54 | PC.SOCIAL ---
IMM UPDATED IMM dated and initialed, copy given to patient and copy put in chart.
--- NOTE | 2025-01-27 10:01 | PM.CONSULT ---
Providers/Reason For Consult Consulting Physician/Specialty*: Dr. Rodriguez general surgery Reason for Consult*: Anemia GI bleed Attending Physician: Ja Slaughter MD Primary Care Provider: FILEMON Umaña History of Present Illness History of Present Illness Bianca David is a 69 year old female whom surgery was consulted for anemia. No hematochezia, no melena, no weight loss. No recent scopes. Medications/Allergies Home Medications ?Medication ?Instructions ?Recorded ?Confirmed ?Last Taken ?Type acetaminophen 650 mg 1,950 mg PO QID PRN Pain 01/21/22 01/26/25 08/24/24 History tablet,extended release (Tylenol Arthritis Pain) topiramate 25 mg sprinkle capsule 25 mg PO QPM 01/21/22 01/26/25 11/01/24 History clopidogrel 75 mg tablet (Plavix) See Rx Instructions .Route .COMPLEX 11/02/24 01/26/25 10/19/24 History Held on 11/03/24. Instructions: Resume on 11/05/24. Bone Growth Stimulator #1 ea 11/03/24 01/26/25 Unknown Rx hydroxyzine HCl 50 mg tablet 50 mg PO QID PRN insomnia/anxiety 11/07/24 01/26/25 Unknown Rx #120 tabs sertraline 100 mg tablet (Zoloft) 200 mg (2 x 100 mg) PO DAILY #60 11/07/24 01/26/25 Unknown Rx tabs trazodone 100 mg tablet See Rx Instructions .Route 11/07/24 01/26/25 01/25/25 Rx .COMPLEX #60 tabs pantoprazole 40 mg tablet,delayed 40 mg PO QPM #30 tabs 12/16/24 01/26/25 Unknown Rx release tizanidine 4 mg capsule 4 mg PO BID PRN Spasms #180 caps 12/16/24 01/26/25 01/26/25 Rx ropinirole 0.25 mg tablet 0.25 mg PO BEDTIME #30 tabs 12/19/24 01/26/25 01/25/25 Rx atorvastatin 40 mg tablet See Rx Instructions .Route 12/23/24 01/26/25 01/25/25 Rx .COMPLEX #90 tabs ondansetron HCl 4 mg tablet 4 mg PO Q8H PRN nausea and 12/23/24 01/26/25 Unknown Rx vomiting #14 tabs hydrocodone 7.5 mg-acetaminophen 1 tab PO Q8H PRN pain 10 days #30 01/13/25 01/26/25 01/26/25 Rx 325 mg tablet tabs diazepam 2 mg tablet (Valium) 2 mg PO BID PRN muscle spasm #7 01/23/25 01/26/25 01/25/25 Rx tabs metoprolol succinate 25 mg 25 mg PO QPM 01/26/25 01/26/25 Unknown History tablet,extended release 24 hr Allergies Allergy/AdvReac Type Severity Reaction Status Date / Time metronidazole (From [employer]) Allergy Unknown Verified 01/23/25 20:21 Current Medications Generic Name Dose Route Start Last Admin Trade Name Freq PRN Reason Stop Dose Admin Acetaminophen 650 mg 01/26/25 19:29 01/27/25 00:32 Acetaminophen 325 Mg Tablet PO 650 mg Q6H PRN Administration Mild/Mod Pain Or Temp >/= 101 Hydrocodone Bitart/Acetaminophen 1 tab 01/26/25 19:29 01/27/25 04:15 Hydrocodone-Acetaminophen 7.5-325 Mg Tablet PO 1 tab Q8H PRN Administration pain Sodium Chloride 1,000 mls @ 75 mls/hr 01/26/25 19:29 01/27/25 08:46 Sodium Chloride 0.9% IV 75 mls/hr .[id number] NICOLE Administration Morphine Sulfate 2 mg 01/27/25 01:37 01/27/25 09:53 Morphine 4 Mg/Ml Sdv 1 Ml IVP 2 mg Q4H PRN Administration SEVERE PAIN Pantoprazole Sodium 40 mg 01/26/25 19:29 01/27/25 08:45 Pantoprazole 40 Mg Sdv IVP 40 mg Q12H NICOLE Administration Ropinirole HCl 0.25 mg 01/26/25 21:00 01/26/25 20:30 Ropinirole 0.25 Mg Tablet PO 0.25 mg BEDTIME NICOLE Administration Sucralfate 1 gm 01/26/25 19:29 01/27/25 08:45 Sucralfate 1 Gm/10 Ml Oral Liq Udc PO 1 gm Q12H NICOLE Administration Tizanidine HCl 4 mg 01/26/25 20:40 01/27/25 09:53 Tizanidine 4 Mg Tablet PO 4 mg TID PRN Administration SPASMS PFSH Acute PFSH: Medical History CVA (cerebral vascular accident) TIA (transient ischemic attack) Psychiatric care Surgical History Status post lumbar spinal fusion History of tubal ligation History of gastric bypass x2 History of cholecystectomy Social History Smoking and tobacco/nicotine status: never used tobacco/nicotine Quit status (tobacco/nicotine): has quit using Year quit tobacco: 1989 Second hand smoke exposure: No Alcohol intake: former Year of sobriety/quit date alcohol: 1991 Substance/Drug Use: former Adopted: No Caregiver/support person: No Lives independently: No Household members: family Marital status: / Do you think of yourself as: Straight/Heterosexual Current gender identity: Female Vitals/I&O/Wt Last Vital Signs Temp 97.8 F 01/27/25 07:51 Pulse 88 01/27/25 07:51 Resp 18 01/27/25 09:53 BP 127/84 01/27/25 07:51 Pulse Ox 98 01/27/25 07:51 O2 Del Method Room Air 01/27/25 07:51 01/26/25 01/27/25 01/27/25 22:59 06:59 14:59 Intake Total 1400 / 1400 480 / 1880 915 / 915 Output Total 600 / 600 700 / 1300 Balance 800 / 800 -220 / 580 915 / 915 Weight last 48 hrs Weight 182 lb 6 oz Weight 181 lb 4.8 oz Weight 160 lb Physical Exam Narrative: Chest: Unlabored breathing room air. No lymphadenopathy. Heart: Regular rate and rhythm. Abdomen: Soft, nontender, nondistended. No masses or lymphadenopathy. Urinary Catheter Management: Phillips: Cath Placed During This Visit: no Reason for Continuing Indwelling Catheter: Acute Urinary Retention or Obstruction Data 01/27/25 04:57 01/27/25 04:57 A&P Assessment and plan (1) Acute anemia: Plan 69-year-old female whom surgery was consulted for anemia. I have explained the risks and benefits of a diagnostic colonoscopy and the patient agrees to proceed. I have explained the risks and benefits of a diagnostic EGD and the patient agrees to proceed. PDMP PDMP Reviewed: Not Reviewed Coding Level of Care Code Acute Code for Chg Fwd Diagnoses Acute anemia D64.9
--- NOTE | 2025-01-27 12:17 | P.PN_ITS ---
Subjective 2 Subjective: Patient was seen this morning, she reports diffuse pain, she tells me that she typically uses hydrocodone 3 times daily, with tizanidine twice daily, with Topamax, due to her chronic pain, she has not received her muscle relaxer as of yet, continues to have severe pain, discussed resuming her medications, discussed my concerns for polypharmacy Vitals/I&O/Wt Last Vital Signs Temp 98.2 F 01/27/25 11:54 Pulse 84 01/27/25 11:54 Resp 18 01/27/25 11:54 BP 115/70 01/27/25 11:54 Pulse Ox 94 01/27/25 11:54 O2 Del Method Room Air 01/27/25 11:54 01/26/25 01/27/25 01/27/25 22:59 06:59 14:59 Intake Total 1400 / 1400 480 / 1880 915 / 915 Output Total 600 / 600 700 / 1300 1600 / 1600 Balance 800 / 800 -220 / 580 -685 / -685 Weight last 48 hrs Weight 82.724 kg Weight 82.236 kg Weight 72.575 kg Physical Exam 2 Const: COMMON NORMALS: no acute distress and patient oriented x3 Neck/C-Spine: COMMON NORMALS: no JVD Resp: COMMON NORMALS: normal respiratory effort, No retractions, No use of accessory muscles and clear to auscultation bilaterally AUSCULTATION: clear to auscultation bilaterally Cardio: COMMON NORMALS: no JVD, regular rate, regular rhythm, S1 normal heart sound present and S2 normal heart sound present RATE: regular rate RHYTHM: regular rhythm HEART SOUNDS: S1 normal heart sound present and S2 normal heart sound present GI: COMMON NORMALS: Normal to inspection, nondistended, normoactive bowel sounds present and non-tender Extremity: COMMON NORMALS: no pedal edema Neuro: COMMON NORMALS: patient oriented x3 Psych: COMMON NORMALS: mental status grossly normal Urinary Catheter Management: Phillips: Cath Placed During This Visit: no Reason for Continuing Indwelling Catheter: Acute Urinary Retention or Obstruction Data 01/27/25 04:57 01/27/25 04:57 A&P Assessment and plan (1) Acute anemia: (2) Bradycardia: (3) Closed fibular fracture: Plan Syncope - Etiology multifactorial - Could be a component of anemia, Hemoccult stool negative in the emergency room, - Iron studies show evidence of early iron deficient anemia, - monitor hemoglobin, hold off on blood thinners, does take Plavix on hold, -consulted general surgery for consideration of EGD and colonoscopy, Protonix, Carafate - Bradycardia, EKG shows sinus bradycardia, prolonged QT, now 460 ms, monitor, magnesium 1.9 - UA negative - She recently was started on diazepam certainly polypharmacy could be playing a role as patient takes hydrocodone, tizanidine, Valium, propranolol - Lactic acid within normal limits - Telemetry monitoring, serial EKGs, serial troponins, troponin monitoring - Cardiac echo, carotid ultrasound no acute findings - CRP 55, Pro-Maciej within normal limits -Closed fibular fracture left lower extremity, nonweightbearing, casted -Start IV fluids -Full code -SCDs for DVT prophylaxis - Patient requires hospitalization for syncopal episode PDMP PDMP Reviewed: Last Reviewed 01/26/25 16:35 by Ja Slaughter MD Attestations 2 Medical Necessity Statement*: Patient requires hospitalization for acute anemia, requiring EGD and colonoscopy Diagnoses Acute anemia D64.9 Bradycardia R00.1 Closed fibular fracture S82.409A
[2025-01-27] MEDS: bisacodyl 5 mg Tablet 40 MG PO ×2 (12:50→20:18)
[2025-01-27] MEDS: magnesium citrate Btl 296 mL 150 ML PO ×2 (12:50→20:18)
--- NOTE | 2025-01-27 16:49 | USCV_ITS ---
Bianca David Age: 69 Gender: F : 1955 Exam Date: 01/27/2025 08:01 Ordering Phys: Ja Slaughter MD Technologist: BHARATH Exam Location: [facility] [place]ication: Syncope BP: 101 / 68 HR: 85 Rhythm: Sinus Technical Quality: Adequate MEASUREMENTS (Male / Female) Normal Values 2D ECHO LV Diastolic Diameter PLAX 5.1 cm 4.2 - 5.9 / 3.9 - 5.3 cm IVS Diastolic Thickness 1.0 cm 0.6 - 1.0 / 0.6 - 0.9 cm IVS Systolic Thickness 1.0 cm LVPW Diastolic Thickness 0.9 cm 0.6 - 1.0 / 0.6 - 0.9 cm LVPW Systolic Thickness 1.5 cm LVOT Diameter 1.8 cm LV Ejection Fraction 2D Teich 63.6 % LV Ejection Fraction MOD 4C 56.1 % LV Ejection Fraction MOD 2C 59.2 % LV Ejection Fraction 2C AL 60.8 % LA Diameter 4.4 cm RA Systolic Volume 4C AL 19.1 ml RA Systolic Volume 4C MOD 20.5 ml LA Sys Volume AL 44.5 cm cubed LA Sys Volume Index AL 22.9 cm cubed/m squared Aorta at Sinotubular Diameter 2.0 cm M-MODE LA Ao Ratio MM 2.5 AV Cusp Separation MM 1.1 cm DOPPLER AV Peak Velocity 137.0 cm/s LVOT Peak Velocity 105.0 cm/s AV Area Cont Eq vti 2.5 cm squared AV Area Cont Eq pk 2.0 cm squared MV Peak Velocity 128.0 cm/s MV Area PHT 4.0 cm squared Mitral E to A Ratio 0.8 TR Peak Velocity 116.0 cm/s TR Peak Gradient 5.4 mmHg TV Peak E Velocity 73.0 cm/s PV Peak Velocity 136.0 cm/s FINDINGS Left Ventricle Normal left ventricular size and systolic function, EF 56%. No gross wall motion normalities.Grade I/IV diastolic dysfunction (abnormal relaxation filling pattern), normal to mildly elevated filling pressures. Right Ventricle The right ventricle is normal in size and function. Right Atrium The right atrium is normal in size. Left Atrium Moderately increased left atrial size. Mitral Valve No gross abnormalities noted Aortic Valve No gross abnormalities noted Tricuspid Valve No gross abnormalities noted Pulmonic Valve Trace pulmonary valve regurgitation. Pericardium No pericardial effusion. Aorta Normal aortic annulus size. IVC Inferior vena cava not visualized. CONCLUSIONS Normal left ventricular size and systolic function, EF 56%. No gross wall motion normalities.Grade I/IV diastolic dysfunction (abnormal relaxation filling pattern), normal to mildly elevated filling pressures. Moderately increased left atrial size. Technically difficult study because of the poor ultrasonic window. Compared to the study from 07/18/2022, there may be a significant change in the 2D findings Dr Uriel Smith MD [facility] (Electronically Signed) Final Date: 27 January 2025 15:23 S
--- NOTE | 2025-01-27 16:49 | USCV_ITS ---
Bianca David Age: 69 Gender: F : 1955 Exam Date: 01/27/2025 08:15 Ordering Phys: Ja Slaughter MD Technologist: BHARATH [place] [facility] [place]ication: AMS Risk Factors: Previous Vascular Surgery: Right Brachial BP: / Left Brachial BP: / Right Left Velocity (cm/s) Spectral Plaque Velocity (cm/s) Spectral Plaque Syst/Diast Broadening Syst/Diast Broadening 98.00/ 26.40 Prox CCA 94.60 / 15.00 120.40/30.50 Mid CCA 106.90/ 18.60 82.20/ 22.90 Distal CCA 106.90/ 12.30 83.50/ 25.30 Prox ICA 102.00/ 21.70 99.30/ 21.70 Mid ICA 68.10 / 21.30 87.10/ 20.50 Distal ICA 89.90 / 24.70 78.20 ECA 109.30 1.00 ICA/CCA 1.00 Antegrade Vertebral Antegrade 45.10/ 10.70 cm/s 74.40/ 15.40 cm/s Tri Subclavian Tri 163.2 134.9 0 0 CONCLUSIONS Right ICA stenosis <50%. Mild atheromatous plaque right carotid bulb/ICA. Left ICA stenosis <50%. Mild atheromatous plaque left carotid bulb/ICA. Normal antegrade Doppler flow noted in the right vertebral artery. Normal antegrade Doppler flow noted in the left vertebral artery. Cecilio Maki MD (Electronically Signed) Final Date: 27 January 2025 10:18 S
[2025-01-27] MEDS: topiramate 25 mg Tablet PO (20:15)
[2025-01-27] MEDS: diazePAM 2 mg Tablet PO (20:15)
[2025-01-27] MEDS: ropinirole 0.25 mg Tablet PO (20:15)
[2025-01-27] MEDS: trazodone 100 mg Tablet 200 MG PO (21:08)
[2025-01-28] VITALS (13 sets, daily range): BP systolic 107–149; BP diastolic 44–97; PULSE 72–114; RESP 16–20; TEMP 36.1–37.1; O2SAT 94–98
[2025-01-28] MEDS: HYDROcodone-acetaminophen 7.5-325 mg Tablet 1 TAB PO ×3 (00:02→19:56)
[2025-01-28] MEDS: morphine 4 mg/mL SDV 1 mL 2 MG IVP ×2 (01:05→04:38)
[2025-01-28 04:32] LABS: Basophils % 0.3 %; Eosinophils # 0.1 10^3/uL (0.0-0.8); Eosinophils % 1.7 %; Hematocrit 27.9 % (36-47); Lymphocytes # 1.1 10^3/uL (0.8-4.8); Lymphocytes % 18.5 %; Mean Corpuscular HGB Conc 31.5 g/dL (30-55); Mean Corpuscular Hemoglobin 26.1 pg (27-33); Mean Corpuscular Volume 82.8 fl (85-98); Mean Platelet Volume 8.7 fL (7.4-10.4); Monocytes # 0.3 10^3/uL (0.2-0.9); Monocytes % 5.5 %; Neutrophils # 4.29 10^3/uL (1.8-7.7); Neutrophils % 73.5 %; Nucleated Red Blood Cells % 0 %; Platelet Count 371 10^3/cmm (157-399); Red Blood Count 3.37 10^6/uL (3.85-5.65); Red Cell Distribution Width 17.4 % (12.1-15.1); White Blood Count 5.84 10^3/uL (3.29-11.43)
[2025-01-28] MEDS: sodium chloride 0.9% 1,000 ML 75 ML IV (04:40)
[2025-01-28 04:55] LABS: Alanine Aminotransferase 21 U/L (0-33); Albumin Level 2.6 g/dL (3.5-5.2); Alkaline Phosphatase 217 U/L (35-105); Aspartate Amino Transferase 40 U/L (0-32); Blood Urea Nitrogen 7 mg/dL (8-23); Calcium 8.9 mg/dL (8.5-10.5); Carbon Dioxide 26 mmol/L (22-29); Chloride 105 mmol/L (98-107); Creatinine Clr Calc Pharmacy 67.3307; Globulin 3.7 g/dL (1.3-4.6); Glomerular Filtration Rate 71.5 mL/min (90-130); Glucose 85 mg/dL (65-115); Magnesium 2.4 mg/dL (1.7-2.3); Osmolality Calculated 283 mOsm/kg (285-295); Phosphorus 3.5 mg/dL (2.5-4.5); Sodium 138 mmol/L (136-145); Total Bilirubin 0.2 mg/dL (0.15-1.2); Total Protein 6.3 g/dL (6.6-8.7)
--- NOTE | 2025-01-28 07:56 | P.PN_ITS ---
Subjective 2 Subjective: No hematochezia, no melena Vitals/I&O/Wt Last Vital Signs Temp 98.4 F 01/28/25 04:00 Pulse 91 01/28/25 05:23 Resp 17 01/28/25 04:38 BP 130/76 01/28/25 04:00 Pulse Ox 95 01/28/25 04:38 O2 Del Method Room Air 01/28/25 04:00 01/27/25 01/28/25 01/28/25 22:59 06:59 14:59 Intake Total 350 / 1945 617.5 / 2562.5 Output Total 1200 / 2800 1200 / 4000 Balance -850 / -855 -582.5 / -1437.5 Weight last 48 hrs Weight 171 lb 3.2 oz Weight 182 lb 6 oz Weight 181 lb 4.8 oz Weight 160 lb Physical Exam 2 Narrative: RRR unlabored breathing RA abdomen soft, nt, nd Urinary Catheter Management: Phillips: Cath Placed During This Visit: no Reason for Continuing Indwelling Catheter: Accurate Measurement of Urinary Output in Critically Ill Patients Data 01/28/25 04:12 01/28/25 04:12 A&P Assessment and plan (1) GIB (gastrointestinal bleeding): Plan 69 yo F whom surgery was consulted for GIB. Discussed risks and benefits and patient agrees to proceed with EGD and colonoscopy. PDMP PDMP Reviewed: Not Reviewed Attestations 2 Medical Necessity Statement*: NA Coding Level of Care Code 50325 Diagnoses GIB (gastrointestinal bleeding) K92.2
--- NOTE | 2025-01-28 08:28 | ANES.PREANE2 ---
Pre-Anesthetic Assessment Height/Weight: Height 1.6 m Weight 77.655 kg Temp Pulse Resp BP Pulse Ox O2 Del Method 98.4 F 91 17 130/76 95 Room Air 01/28/25 04:00 01/28/25 05:23 01/28/25 04:38 01/28/25 04:00 01/28/25 04:38 01/28/25 04:00 Operation Date: 01/28/25 08:00 Proposed Procedures p EGD(Not Applicable) - Bishnu Rodriguez MD s Colonoscopy(Not Applicable) - Bishnu Rodriguez MD Last intake: Intake Last Liquid Date 01/27/25 Last Liquid Time 23:59 Last Solid Date 01/27/25 Last Solid Time 23:59 Social No alcohol and No tobacco Exam alert, oriented x 3, clear to auscultation bilaterally and regular rate & rhythm Airway Submandibular: within normal limits Cervical ROM: within normal limits Mallampati: Class I CV/HEM Hypertension GI Gastroesophageal Reflux Disease Metabolic Hyperlipidemia Musc/skel Lower Back Pain (s/p LB surgery ) Neuropsych Anxiety and Syncope Anesthetic Plan ASA status: 3 Anesthesia: MAC Medications/Allergies Home Medications ?Medication ?Instructions ?Recorded ?Confirmed ?Last Taken ?Type acetaminophen 650 mg 1,950 mg PO QID PRN Pain 01/21/22 01/26/25 08/24/24 History tablet,extended release (Tylenol Arthritis Pain) topiramate 25 mg sprinkle capsule 25 mg PO QPM 01/21/22 01/26/25 11/01/24 History clopidogrel 75 mg tablet (Plavix) See Rx Instructions .Route .COMPLEX 11/02/24 01/26/25 10/19/24 History Held on 11/03/24. Instructions: Resume on 11/05/24. Bone Growth Stimulator #1 ea 11/03/24 01/26/25 Unknown Rx hydroxyzine HCl 50 mg tablet 50 mg PO QID PRN insomnia/anxiety 11/07/24 01/26/25 Unknown Rx #120 tabs sertraline 100 mg tablet (Zoloft) 200 mg (2 x 100 mg) PO DAILY #60 11/07/24 01/26/25 Unknown Rx tabs trazodone 100 mg tablet See Rx Instructions .Route 11/07/24 01/26/25 01/25/25 Rx .COMPLEX #60 tabs pantoprazole 40 mg tablet,delayed 40 mg PO QPM #30 tabs 12/16/24 01/26/25 Unknown Rx release tizanidine 4 mg capsule 4 mg PO BID PRN Spasms #180 caps 12/16/24 01/26/25 01/26/25 Rx ropinirole 0.25 mg tablet 0.25 mg PO BEDTIME #30 tabs 12/19/24 01/26/25 01/25/25 Rx atorvastatin 40 mg tablet See Rx Instructions .Route 12/23/24 01/26/25 01/25/25 Rx .COMPLEX #90 tabs ondansetron HCl 4 mg tablet 4 mg PO Q8H PRN nausea and 12/23/24 01/26/25 Unknown Rx vomiting #14 tabs hydrocodone 7.5 mg-acetaminophen 1 tab PO Q8H PRN pain 10 days #30 01/13/25 01/26/25 01/26/25 Rx 325 mg tablet tabs diazepam 2 mg tablet (Valium) 2 mg PO BID PRN muscle spasm #7 01/23/25 01/26/25 01/25/25 Rx tabs metoprolol succinate 25 mg 25 mg PO QPM 01/26/25 01/26/25 Unknown History tablet,extended release 24 hr Allergies Allergy/AdvReac Type Severity Reaction Status Date / Time metronidazole (From [facility]) Allergy Unknown Verified 01/23/25 20:21 Current Medications Generic Name Dose Route Start Last Admin Trade Name Freq PRN Reason Stop Dose Admin Acetaminophen 650 mg 01/26/25 19:29 01/27/25 00:32 Acetaminophen 325 Mg Tablet PO 650 mg Q6H PRN Administration Mild/Mod Pain Or Temp >/= 101 Hydrocodone Bitart/Acetaminophen 1 tab 01/26/25 19:29 01/28/25 00:02 Hydrocodone-Acetaminophen 7.5-325 Mg Tablet PO 1 tab Q8H PRN Administration pain Diazepam 2 mg 01/27/25 10:48 01/27/25 20:15 Diazepam 2 Mg Tablet PO 2 mg BID PRN Administration muscle spasm Sodium Chloride 1,000 mls @ 75 mls/hr 01/26/25 19:29 01/28/25 04:40 Sodium Chloride 0.9% IV 75 mls/hr .[id number] NICOLE Administration Morphine Sulfate 2 mg 01/27/25 01:37 01/28/25 04:38 Morphine 4 Mg/Ml Sdv 1 Ml IVP 2 mg Q4H PRN Administration SEVERE PAIN Pantoprazole Sodium 40 mg 01/26/25 19:29 01/27/25 20:15 Pantoprazole 40 Mg Sdv IVP 40 mg Q12H NICOLE Administration Ropinirole HCl 0.25 mg 01/26/25 21:00 01/27/25 20:15 Ropinirole 0.25 Mg Tablet PO 0.25 mg BEDTIME NICOLE Administration Sucralfate 1 gm 01/26/25 19:29 01/27/25 20:18 Sucralfate 1 Gm/10 Ml Oral Liq Udc PO 1 gm Q12H NICOLE Administration Tizanidine HCl 4 mg 01/27/25 10:51 01/27/25 21:08 Tizanidine 4 Mg Tablet PO 4 mg BID PRN Administration Spasms Topiramate 25 mg 01/27/25 21:00 01/27/25 20:15 Topiramate 25 Mg Tablet PO 25 mg BEDTIME NICOLE Administration Trazodone HCl 200 mg 01/27/25 21:00 01/27/25 21:08 Trazodone 100 Mg Tablet PO 200 mg BEDTIME PRN Administration INSOMNIA PFSH Anesthesia Medical History CVA (cerebral vascular accident) TIA (transient ischemic attack) Psychiatric care Surgical History Status post lumbar spinal fusion History of tubal ligation History of gastric bypass x2 History of cholecystectomy Social History Smoking and tobacco/nicotine status: never used tobacco/nicotine Quit status (tobacco/nicotine): has quit using Year quit tobacco: 1989 Second hand smoke exposure: No Alcohol intake: former Year of sobriety/quit date alcohol: 1991 Substance/Drug Use: former Adopted: No Caregiver/support person: No Lives independently: No Household members: family Marital status: / Do you think of yourself as: Straight/Heterosexual Current gender identity: Female Data Anesthesia 01/28/25 04:12 01/28/25 04:12 Short CBC 01/26/25 01/27/25 01/28/25 Range/Units 14:45 04:57 04:12 WBC 9.36 7.90 5.84 (3.29-11.43) 10^3/uL Hgb 8.00 L 8.60 L 8.80 L (11.27-16.99) g/dL Hct 25.9 L 27.1 L 27.9 L (36-47) % MCV 84.4 L 82.1 L 82.8 L (85-98) fl Plt Count 305 394 371 (157-399) 10^3/cmm Neut % (Auto) 82.2 76.4 73.5 % Neut # (Auto) 7.69 6.03 4.29 (1.8-7.7) 10^3/uL BMP 01/26/25 01/27/25 01/28/25 14:45 04:57 04:12 Sodium 138 136 138 Potassium 4.3 3.9 4.0 Chloride 103 103 105 Carbon Dioxide 24 23 26 BUN 12 9 7 L Creatinine 0.9 0.7 0.8 Glucose 110 78 85 Calcium 8.3 L 8.7 8.9 Cardiac Enzymes 01/26/25 01/26/25 01/26/25 Range/Units 14:45 16:36 21:15 Troponin T Baseline 26 H (0-10) ng/L Troponin T 120 Minute 28.19 H (0-10) ng/L Delta Troponin T 2.19 (0-10) ABS# Troponin T Hi Sens 6Hr 28.12 H (0-10) ng/L Troponin T Hi Sens 6Hr Delta 2.12 (0-12) ng/L Liver Function 01/26/25 01/27/25 01/28/25 Range/Units 14:45 04:57 04:12 Total Bilirubin 0.2 0.3 0.2 (0.15-1.2) mg/dL AST 14 13 40 H (0-32) U/L ALT 10 10 21 (0-33) U/L Alkaline Phosphatase 167 H 174 H 217 H (35-105) U/L Albumin 2.8 L 2.8 L 2.6 L (3.5-5.2) g/dL Urine 01/26/25 Range/Units 16:35 Urine Color Yellow (Yellow) Urine Appearance Clear (CLEAR) Urine pH 5 (5-7) Ur Specific Bath 1.010 (1.005-1.030) Urine Protein Neg (Negative) Urine Glucose (UA) Norm (Normal) Urine Ketones Negative (Negative) Urine Nitrate Negative (Negative) Urine Bilirubin Neg (Negative) Ur Leukocyte Esterase Negative (Negative) Coags 01/26/25 14:45 PT 15.20 H INR 1.12 APTT 34.9 C-Reactive Protein 55.5 H Cardiac Studies: Echocardiogram 01/27/25 Sestamibi Stress Test (Cardiology) 12/08/23 Cardiac Event Monitor 05/29/22
--- NOTE | 2025-01-28 08:34 | ANE.PACU2 ---
Inpatient post-anesthesia follow up: Vital signs: Temperature 97.0 F Pulse Rate 105 Respiratory Rate 20 Blood Pressure 145/74 Pulse Oximetry 98 Oxygen Delivery Me thod Room Air Oxygen Flow Rate Fraction of Inspir ed Oxygen Hydration adequate: Yes Nausea and vomiting: No Pain level: Baseline
[2025-01-28] MEDS: sertraline 100 mg Tablet 200 MG PO (09:09)
[2025-01-28 10:52] LABS: Hematocrit 26.3 % (36-47)
--- NOTE | 2025-01-28 10:57 | P.PN_ITS ---
Subjective 2 Subjective: Patient was seen this morning, she reports generalized fatigue, malaise, aches and pains, denies any fevers, no chills, no nausea, no vomiting, no lightheadedness Vitals/I&O/Wt Last Vital Signs Temp 97.0 F L 01/28/25 08:20 Pulse 102 H 01/28/25 08:35 Resp 20 H 01/28/25 08:35 BP 135/97 01/28/25 08:35 Pulse Ox 98 01/28/25 08:35 O2 Del Method Room Air 01/28/25 08:35 01/27/25 01/28/25 01/28/25 22:59 06:59 14:59 Intake Total 350 / 1945 617.5 / 2562.5 Output Total 1200 / 2800 1200 / 4000 900 / 900 Balance -850 / -855 -582.5 / -1437.5 -900 / -900 Weight last 48 hrs Weight 77.655 kg Weight 82.724 kg Weight 82.236 kg Weight 72.575 kg Physical Exam 2 Const: COMMON NORMALS: no acute distress and patient oriented x3 Resp: COMMON NORMALS: normal respiratory effort, No retractions, No use of accessory muscles and clear to auscultation bilaterally AUSCULTATION: clear to auscultation bilaterally Cardio: COMMON NORMALS: regular rate, regular rhythm, S1 normal heart sound present and S2 normal heart sound present RATE: regular rate RHYTHM: r egular rhythm HEART SOUNDS: S1 normal heart sound present and S2 normal heart sound present GI: COMMON NORMALS: Normal to inspection, nondistended, normoactive bowel sounds present and non-tender Extremity: COMMON NORMALS: no pedal edema Neuro: COMMON NORMALS: patient oriented x3 Psych: COMMON NORMALS: mental status grossly normal Urinary Catheter Management: Phillips: Cath Placed During This Visit: no Reason for Continuing Indwelling Catheter: Accurate Measurement of Urinary Output in Critically Ill Patients Data 01/28/25 10:43 01/28/25 04:12 A&P Assessment and plan (1) Acute anemia: (2) Bradycardia: (3) Closed fibular fracture: Plan Syncope - Etiology multifactorial - Could be a component of anemia, Hemoccult stool negative in the emergency room, - Iron studies show evidence of early iron deficient anemia, - monitor hemoglobin, hold off on blood thinners, does take Plavix on hold, -consulted general surgery for consideration of EGD and colonoscopy, Protonix, Carafate - Bradycardia, EKG shows sinus bradycardia, prolonged QT, now 460 ms, monitor, magnesium 1.9 - UA negative - She recently was started on diazepam certainly polypharmacy could be playing a role as patient takes hydrocodone, tizanidine, Valium, propranolol - Lactic acid within normal limits - Telemetry monitoring, serial EKGs, serial troponins, troponin monitoring - Cardiac echo, carotid ultrasound no acute findings - CRP 55, Pro-Maciej within normal limits -Closed fibular fracture left lower extremity, nonweightbearing, casted -Start IV fluids, now have been stopped -Full code -SCDs for DVT prophylaxis - Patient requires hospitalization for syncopal episode Plan for today, monitor after EGD and colonoscopy repeat hemoglobin this afternoon, will resume anticoagulant therapy, Plavix, monitor hemoglobin thereafter, PT OT, check orthostatic vitals, PDMP PDMP Reviewed: Last Reviewed 01/26/25 16:35 by Ja Slaughter MD Attestations 2 Medical Necessity Statement*: Patient requires hospitalization for syncope, closed fibula fracture, anemia Diagnoses Acute anemia D64.9 Bradycardia R00.1 Closed fibular fracture S82.409A
--- NOTE | 2025-01-28 15:13 | PC.OT ---
patient was very confused and incoherent. nursing notified. ot eval hld due to poor cooperation
[2025-01-28] MEDS: calcium carbonate 500 mg Chew Tablet 1000 MG PO (16:32)
[2025-01-28] MEDS: tizanidine 4 mg Tablet PO (16:32)
[2025-01-28] MEDS: metoprolol succinate ER (24 HR) 25 mg Tablet PO (16:32)
[2025-01-28 18:08] LABS: Basophils % 0.3 %; Eosinophils # 0.1 10^3/uL (0.0-0.8); Eosinophils % 1.6 %; Hematocrit 24.4 % (36-47); Lymphocytes # 0.8 10^3/uL (0.8-4.8); Lymphocytes % 13.3 %; Mean Corpuscular HGB Conc 31.1 g/dL (30-55); Mean Corpuscular Hemoglobin 26.5 pg (27-33); Mean Platelet Volume 8.4 fL (7.4-10.4); Monocytes # 0.3 10^3/uL (0.2-0.9); Monocytes % 4.5 %; Neutrophils # 4.92 10^3/uL (1.8-7.7); Neutrophils % 79.8 %; Nucleated Red Blood Cells % 0 %; Platelet Count 309 10^3/cmm (157-399); Red Blood Count 2.87 10^6/uL (3.85-5.65); Red Cell Distribution Width 17.7 % (12.1-15.1); White Blood Count 6.17 10^3/uL (3.29-11.43)
[2025-01-28] MEDS: pantoprazole 40 mg SDV IVP (19:45)
[2025-01-28] MEDS: sucralfate 1 gm/10 mL Oral Liq UDC PO (19:45)
[2025-01-28] MEDS: diazePAM 2 mg Tablet PO (19:59)
[2025-01-28] MEDS: topiramate 25 mg Tablet PO (19:59)
[2025-01-28] MEDS: trazodone 100 mg Tablet 200 MG PO (19:59)
[2025-01-28] MEDS: ropinirole 0.25 mg Tablet PO (20:00)
[2025-01-28] MEDS: enoxaparin 40 mg/0.4 mL Syringe SUBCUT (20:00)
--- NOTE | 2025-01-28 21:03 | PC.NURSE ---
AT shift change, nurse was informed of patients Hgb of 7.6 and was not reported et to the hospitalist. Nurse called and spoke with Dr. Centeno about the patients admitting diagnosis and current Hgb level to see if Dr. Centeno wants a unit of blood to be transfused. Dr Centeno Stated. Wait to see what 0400 morning labs say . Charge nurse and patient has been notified. Patient is still on cardiac monitoring and will continue to monitor patient throughout the night.
[2025-01-28] MEDS: acetaminophen 325 mg Tablet 650 MG PO (23:47)
[2025-01-29] VITALS: BP 120/65; PULSE 81; RESP 16; TEMP 37; O2SAT 92
[2025-01-29] MEDS: HYDROcodone-acetaminophen 7.5-325 mg Tablet 1 TAB PO ×2 (03:48→11:40)
[2025-01-29 04:00] VITALS: BP 146/77; PULSE 76; RESP 17; TEMP 37.1; O2SAT 95
[2025-01-29 04:21] LABS: Basophils % 0.5 %; Eosinophils # 0.1 10^3/uL (0.0-0.8); Eosinophils % 2.1 %; Hematocrit 25.7 % (36-47); Lymphocytes # 1.2 10^3/uL (0.8-4.8); Lymphocytes % 18.5 %; Mean Corpuscular HGB Conc 32.7 g/dL (30-55); Mean Corpuscular Hemoglobin 26.5 pg (27-33); Mean Corpuscular Volume 81.1 fl (85-98); Mean Platelet Volume 8.8 fL (7.4-10.4); Monocytes # 0.4 10^3/uL (0.2-0.9); Monocytes % 5.8 %; Neutrophils # 4.74 10^3/uL (1.8-7.7); Neutrophils % 72.6 %; Nucleated Red Blood Cells % 0 %; Platelet Count 342 10^3/cmm (157-399); Red Blood Count 3.17 10^6/uL (3.85-5.65); Red Cell Distribution Width 17.5 % (12.1-15.1); White Blood Count 6.53 10^3/uL (3.29-11.43)
[2025-01-29 05:09] VITALS: PULSE 74
[2025-01-29 07:06] LABS: Alanine Aminotransferase 17 U/L (0-33); Albumin Level 2.6 g/dL (3.5-5.2); Alkaline Phosphatase 205 U/L (35-105); Anion Gap 11.7 (5-19); Aspartate Amino Transferase 23 U/L (0-32); Blood Urea Nitrogen 9 mg/dL (8-23); Calcium 8.7 mg/dL (8.5-10.5); Carbon Dioxide 26 mmol/L (22-29); Chloride 104 mmol/L (98-107); Creatinine Clr Calc Pharmacy 69.2073; Glomerular Filtration Rate 71.5 mL/min (90-130); Glucose 87 mg/dL (65-115); Osmolality Calculated 284 mOsm/kg (285-295); Phosphorus 2.8 mg/dL (2.5-4.5); Potassium 3.7 mmol/L (3.5-5.1); Sodium 138 mmol/L (136-145); Total Bilirubin 0.2 mg/dL (0.15-1.2); Total Protein 5.6 g/dL (6.6-8.7)
[2025-01-29 07:39] VITALS: BP 121/71; PULSE 74; RESP 17; TEMP 37.1; O2SAT 95
--- NOTE | 2025-01-29 08:21 | P.PN_ITS ---
Subjective 2 Subjective: no melena no hematochezia Vitals/I&O/Wt Last Vital Signs Temp 98.8 F 01/29/25 07:39 Pulse 74 01/29/25 07:39 Resp 17 01/29/25 07:39 BP 121/71 01/29/25 07:39 Pulse Ox 95 01/29/25 07:39 O2 Del Method Room Air 01/29/25 07:39 01/28/25 01/29/25 01/29/25 22:59 06:59 14:59 Intake Total 785 / 1025 Output Total 1600 / 2500 Balance 785 / 125 -1600 / -1475 Weight last 48 hrs Weight 180 lb 12.8 oz Weight 171 lb 3.2 oz Physical Exam 2 Narrative: rrr unlabored breathing ra abdomen soft, nt, nd Urinary Catheter Management: Phillips: Cath Placed During This Visit: no Reason for Continuing Indwelling Catheter: Accurate Measurement of Urinary Output in Critically Ill Patients Data 01/29/25 04:13 01/29/25 06:25 A&P Assessment and plan (1) GIB (gastrointestinal bleeding): Plan 69 yo female consulted for GIB. Negative scopes. No clinical evidence of GIB PDMP PDMP Reviewed: Not Reviewed Attestations 2 Medical Necessity Statement*: NA Coding Level of Care Code 59153 Diagnoses GIB (gastrointestinal bleeding) K92.2
[2025-01-29] MEDS: pantoprazole 40 mg SDV IVP (08:35)
[2025-01-29] MEDS: clopidogrel 75 mg Tablet PO (08:35)
[2025-01-29] MEDS: sucralfate 1 gm/10 mL Oral Liq UDC PO (08:35)
[2025-01-29] MEDS: sertraline 100 mg Tablet 200 MG PO (08:35)
--- NOTE | 2025-01-29 11:19 | XRR_ITS ---
PROCEDURE INFORMATION: Exam: XR Lumbosacral Spine Exam date and time: 01/29/2025 11:50 AM Age: 69 years old Clinical indication: Lumbago; Prior surgery; Surgery date: <1 month; Lower back/bilateral hip/pelvic pain post fall x 3 days ago; Lumbar fusion x 2 mo ago-pt states she has been unstable since TECHNIQUE: Imaging protocol: Radiologic exam of the lumbosacral spine. Views: 2 or 3 views. COMPARISON: CT lumbar spine wo con* [id number] 01/26/2025 2:40 PM FINDINGS: Bones/joints: Status post L5-S1 posterior spinal fusion with interbody disc spacer in place. No evidence of acute hardware fracture. No acute osseous abnormality. Multilevel endplate sclerosis with mild disc space narrowing. Mild anterior traction spur formation. Lumbosacral spine alignment is intact. Soft tissues: Unremarkable. Gastrointestinal tract: Moderate constipation. XR/XR lumbar spine 2-3V* [id number] IMPRESSION: Degenerative changes of the lumbosacral spine without evidence of acute fracture or dislocation. L5-S1 lumbosacral spine hardware is intact.
--- NOTE | 2025-01-29 11:19 | XRR_ITS ---
PROCEDURE INFORMATION: Exam: XR Bilateral Hips Exam date and time: 01/29/2025 11:50 AM Age: 69 years old Clinical indication: Hip pain; Prior surgery; Surgery date: <1 month; Surgery type: Lumbar fusion 11/2024; Lower back/bilateral hip/pelvic pain post fall x 3 days ago; Lumbar fusion x 2 mo ago-pt states she has been unstable since TECHNIQUE: Imaging protocol: Radiologic exam of the bilateral hips. Views: 2 views of hips with pelvis when performed. COMPARISON: CT abdomen pelvis w con* [id number] 01/26/2025 3:44 PM FINDINGS: Bones/joints: [id number] degenerative changes of the bilateral hip joints. No acute fracture. No dislocation. Partially visualized lumbosacral hardware from prior spinal fusion. Soft tissues: Unremarkable. XR/XR hip BI 2V wo/w pel [id number] IMPRESSION: [id number] degenerative changes of the bilateral hips without evidence of acute fracture or dislocation.
--- NOTE | 2025-01-29 11:24 | PM.DCS ---
Discharge Providers Date of Admission: 01/26/25 18:41 Date of Discharge: January 29, 2025 Attending Provider at Admission: Ja Slaughter MD Attending Provider at Discharge: Ja Slaughter MD Primary Care Provider: FILEMON Umaña Diagnoses at Discharge Discharge Diagnosis (1) GIB (gastrointestinal bleeding): Status: Acute Reason for Visit Reason for Visit: fall - left ankle pain Hospital Course Hospital Course Bianca David is a 69 year old female with a past medical history of recent lower lumbar surgery, CVA, TIA, who presents [facility] for presyncopal episode and fall. According to patient she was at home, when she was standing, she got weak, lightheaded and she went down to the ground, she denies really passing out, does report hitting her head, no preceding chest pain or palpitations or shortness of breath, no nausea, vomiting, no abdominal pain, no fevers, no chills she was hypotensive on arrival blood pressure 88/52, was bradycardic, denies any focal weakness, no slurring of words, no paresthesias, no headache, blurry vision, she was found to have a fibular fracture which was splinted in the emergency room, Patient presented to [facility] for syncope, multifactorial combination of anemia, polypharmacy, bradycardia Acute anemia, Hemoccult stool negative in the ER, evidence of early iron insufficiency anemia, general surgery consulted status post EGD and colonoscopy with no acute source of bleeding found, hemoglobin 8.4 on discharge, no blood or black stools, no hemodynamic compromise. Will be discharged with a close follow-up with primary care provider, Protonix, Carafate, iron tablets. Patient was advised if she develops bloody or black stools to immediately go to emergency room. Have her primary care provider recheck her CBC in 1 week. For bradycardia, metoprolol was held, metoprolol will be discontinued at discharge Concerns for polypharmacy - Patient has severe low back pain after her recent back surgery - She uses hydrocodone, tizanidine, Valium, ropinirole, Topamax - I believe that polypharmacy was the etiology behind her fall - I have strongly recommended for her to use pain medication sparingly, do not use them together, discussed morbidity and mortality associated with overdose of controlled medications such as hydrocodone/Valium/muscle relaxers, she voiced understanding, all questions answered, Complaints of low back pain/hip pain - Patient recently had back surgery - With her recent fall she had a CT lumbar spine with no acute findings, repeat x-ray of the lumbar spine with no acute findings, x-ray of bilateral hips without any acute fracture found on imaging, and a CT scan abdomen pelvis without any evidence of acute fracture - Will have her follow-up with pain management as outpatient - I have strongly advised her to use pain medication sparingly, continue ambulation, discussed morbidity and mortality associated with overdose of controlled medications, she voiced understanding, all questions answered, agreed to proceed Deconditioning, I strongly recommended for patient to go to senior care facility, for rehab, however patient declined going to snf, advises me that she has plenty of help at home. Discussed with patient what physical therapy recommended and they recommended senior care facility placement. After discussing the morbidity mortality of patient's deconditioning, increased risk of falls, with recent history of fall, she voiced understanding, all questions answered, shared decision making, declined to go to senior care facility For her syncopal episode, carotid artery ultrasound no acute findings, CT head no acute findings, cardiac echo no acute findings She was found to have a closed fibular fracture, left lower extremity she is in a cast, nonweightbearing - She is to follow with orthopedic services outpatient - Discussed morbidity and mortality associated with DVT/PE, and hypercoagulable event, given her recent surgery, and relative immobility - Unfortunately anticoagulant therapy is currently not a a good option given her hemoglobin 8.4 - But she can continue her Plavix and 5 mg daily - Discussed continued ambulation with restrictions - Discussed morbidity or mentality associated, with hypercoagulable events, she voiced understanding, all questions answered, shared decision making, agreed to proceed Physical Exam Const: COMMON NORMALS: no acute distress and patient oriented x3 Resp: COMMON NORMALS: normal respiratory effort, No retractions, No use of accessory muscles and clear to auscultation bilaterally AUSCULTATION: clear to auscultation bilaterally Cardio: COMMON NORMALS: regular rate, regular rhythm, S1 normal heart sound present and S2 normal heart sound present RATE: regular rate RHYTHM: regular rhythm HEART SOUNDS: S1 normal heart sound present and S2 normal heart sound present GI: COMMON NORMALS: Normal to inspection, nondistended, normoactive bowel sounds present and non-tender Extremity: COMMON NORMALS: no pedal edema Neuro: COMMON NORMALS: patient oriented x3 Psych: COMMON NORMALS: mental status grossly normal Urinary Catheter Management: Phillips: Cath Placed During This Visit: no Reason for Continuing Indwelling Catheter: Accurate Measurement of Urinary Output in Critically Ill Patients Discharge Data Studies Completed and Pending Completed Studies During Hospitalization Category Date Time Status CT abdomen pelvis w con* [id number] Stat Cat Scan 01/26/25 15:[address] cervical spine wo con [CT cervical spin wo con* Cat Scan 01/26/25 14:28 Completed [id number]] Urgent CT head wo con* [id number] Urgent Cat Scan 01/26/25 14:[address] lumbar spine wo con* [id number] Stat Cat Scan 01/26/25 14:28 Completed XR ankle LT min 3V* [id number] Stat Exams 01/26/25 14:28 Completed XR chest 1V portable [id number] Stat Exams 01/26/25 14:30 Completed XR hip BI 2V wo/w [place] [id number] Stat Exams 01/26/25 14:28 Completed CV carotid duplex BI* [id number] Stat Ultrasound 01/27/25 16:49 Completed CV. echo complete* [id number] Stat Ultrasound 01/27/25 16:49 Completed Pending at discharge Category Date Time Status XR hip BI 2V wo/w pel [id number] Stat Exams 01/29/25 11:19 Ordered XR lumbar spine 2-3V* [id number] Stat Exams 01/29/25 11:19 Ordered Radiology Impressions Ankle X-Ray 01/26/25 14:28 IMPRESSION: 1. Nondisplaced lower fibular fracture and soft tissue swelling. Cervical Spine CT 01/26/25 14:28 IMPRESSION: No evidence of acute fracture or dislocation. Head CT 01/26/25 14:28 IMPRESSION: 1. No evidence of intracranial hemorrhage or mass effect. 2. No acute intracranial findings. Hip/Pelvis X-Ray 01/26/25 14:28 IMPRESSION: 1. Mild DJD of the RIGHT hip. 2. The LEFT hip is unremarkable. Lumbar Spine CT 01/26/25 14:28 IMPRESSION: 1. Prior pedicle screw fixation L4-5 with interbody fusion graft. Subsidence along the interbody fusion graft with endplate lucencies. 2. Mild compression with slight fragmentation along the LEFT superior endplate L5 suspicious for recent compression. This is in the area of graft subsidence with osteopenia. 3. Lucency along the LEFT L4 and L5 worse at L5 pedicle 4. No high-grade central canal stenosis. Chest X-Ray 01/26/25 14:30 IMPRESSION: 1. Negative chest. Abdomen/Pelvis CT 01/26/25 15:00 IMPRESSION: 1. No evidence of acute abdominal or pelvic process. 2. Fat containing supraumbilical midline ventral hernia. COMMENTS: Consistent with the [employer]'s Incidental Findings Committee white paper (J Am Freida Radiol 2018): Any incidental renal lesion less than 1 cm or classified as too small to characterize, or any incidental cystic renal lesion characterized as simple-appearing, is likely benign. No follow-up imaging is recommended for these lesions per consensus recommendations based on imaging criteria. Laboratory Results WBC 6.53 10^3/uL (3.29-11.43) 01/29/25 04:13 RBC 3.17 10^6/uL (3.85-5.65) L 01/29/25 04:13 Hgb 8.40 g/dL (11.27-16.99) L 01/29/25 04:13 Hct 25.7 % (36-47) L 01/29/25 04:13 MCV 81.1 fl (85-98) L 01/29/25 04:13 MCH 26.5 pg (27-33) L 01/29/25 04:13 MCHC 32.7 g/dL (30-55) D 01/29/25 04:13 RDW 17.5 % (12.1-15.1) H 01/29/25 04:13 Plt Count 342 10^3/cmm (157-399) 01/29/25 04:13 MPV 8.8 fL (7.4-10.4) 01/29/25 04:13 Neut % (Auto) 72.6 % 01/29/25 04:13 Lymph % (Auto) 18.5 % 01/29/25 04:13 [place] % (Auto) 5.8 % 01/29/25 04:13 Eos % (Auto) 2.1 % 01/29/25 04:13 Baso % (Auto) 0.5 % 01/29/25 04:13 Neut # (Auto) 4.74 10^3/uL (1.8-7.7) 01/29/25 04:13 Lymph # (Auto) 1.2 10^3/uL (0.8-4.8) 01/29/25 04:13 [place] # (Auto) 0.4 10^3/uL (0.2-0.9) 01/29/25 04:13 Eos # (Auto) 0.1 10^3/uL (0.0-0.8) 01/29/25 04:13 Baso # (Auto) 0.0 10^3/uL (0.0-0.1) 01/29/25 04:13 Nucleated RBC % (auto) 0 % 01/29/25 04:13 Nucleated RBCs # 0.0 /100WBC 01/29/25 04:13 PT 15.20 SECONDS (12.1-14.9) H 01/26/25 14:45 INR 1.12 (0.8-1.2) 01/26/25 14:45 APTT 34.9 SECONDS (23.9-36.7) 01/26/25 14:45 Sodium 138 mmol/L (136-145) 01/29/25 06:25 Potassium 3.7 mmol/L (3.5-5.1) 01/29/25 06:25 Chloride 104 mmol/L (98-107) 01/29/25 06:25 Carbon Dioxide 26 mmol/L (22-29) 01/29/25 06:25 Anion Gap 11.7 (5-19) 01/29/25 06:25 BUN 9 mg/dL (8-23) 01/29/25 06:25 Creatinine 0.8 mg/dL (0.5-0.9) 01/29/25 06:25 GFR Calculation 71.5 mL/min (90-130) L 01/29/25 06:25 Glucose 87 mg/dL (65-115) 01/29/25 06:25 Calculated Osmolality 284 mOsm/kg (285-295) L 01/29/25 06:25 Lactic Acid 1.0 mmol/L (0.5-2.2) 01/26/25 14:45 Calcium 8.7 mg/dL (8.5-10.5) 01/29/25 06:25 Phosphorus 2.8 mg/dL (2.5-4.5) 01/29/25 06: Magnesium 2.0 mg/dL (1.7-2.3) 01/29/25 06:25 Iron 22 ug/dL (37-145) L 01/26/25 14:45 TIBC 201 mcg/dl 01/26/25 14:45 % Saturation 10.9 % (20-50) L 01/26/25 14:45 Unsat Iron Binding 179 ug/dL (112-347) 01/26/25 14:45 Ferritin 132 ng/mL (15-150) 01/26/25 14:45 Total Bilirubin 0.2 mg/dL (0.15-1.2) 01/29/25 06: AST 23 U/L (0-32) 01/29/25 06: ALT 17 U/L (0-33) 01/29/25 06: Alkaline Phosphatase 205 U/L (35-105) H 01/29/25 06:25 Troponin T Baseline 26 ng/L (0-10) H 01/26/25 14:45 Troponin T 120 Minute 28.19 ng/L (0-10) H 01/26/25 16:36 Delta Troponin T 2.19 ABS# (0-10) 01/26/25 16:36 Troponin T Hi Sens 6Hr 28.12 ng/L (0-10) H 01/26/25 21:15 Troponin T Hi Sens 6Hr Delta 2.12 ng/L (0-12) 01/26/25 21:15 C-Reactive Protein 55.5 mg/L (0.0-4.9) H 01/26/25 14:45 Total Protein 5.6 g/dL (6.6-8.7) L 01/29/25 06:25 Albumin 2.6 g/dL (3.5-5.2) L 01/29/25 06:25 Globulin 3.0 g/dL (1.3-4.6) 01/29/25 06:25 Procalcitonin 0.06 ng/mL (0-0.5) 01/26/25 14:45 TSH 1.02 uIU/mL (0.27-4.20) 01/26/25 16:36 Urine Color Yellow (Yellow) 01/26/25 16:35 Urine Appearance Clear (CLEAR) 01/26/25 16:35 Urine pH 5 (5-7) 01/26/25 16:35 Ur Specific [place] 1.010 (1.005-1.030) 01/26/25 16:35 Urine Protein Neg (Negative) 01/26/25 16:35 Urine Glucose (UA) Norm (Normal) 01/26/25 16:35 Urine Ketones Negative (Negative) 01/26/25 16:35 Urine Blood Neg (Negative) 01/26/25 16:35 Urine Nitrate Negative (Negative) 01/26/25 16:35 Urine Bilirubin Neg (Negative) 01/26/25 16:35 Urine Urobilinogen Norm mg/dL (Negative) 01/26/25 16:35 Ur Leukocyte Esterase Negative (Negative) 01/26/25 16:35 Amorphous Sediment Not Reportable 01/26/25 16:35 Vitals Last Vital Signs Temp 98.8 F 01/29/25 07:39 Pulse 74 01/29/25 07:39 Resp 17 01/29/25 07:39 BP 121/71 01/29/25 07:39 Pulse Ox 95 01/29/25 07:39 O2 Del Method Room Air 01/29/25 07:39 Discharge Plan Discharge Patient Disposition: Home Condition: Stable Prescriptions: New sucralfate [Carafate] 1 gram tablet 1 g PO BID 28 Days Qty: 56 0RF ferrous sulfate 325 mg (65 mg iron) tablet 325 mg PO BID 30 Days Qty: 60 0RF Continued hydroxyzine HCl 50 mg tablet 50 mg PO QID PRN (Reason: insomnia/anxiety) Qty: 120 2RF sertraline [Zoloft] 100 mg tablet 200 mg PO DAILY Qty: 60 2RF trazodone 100 mg tablet See Rx Instructions .ROUTE .COMPLEX Qty: 60 2RF Dose Instruction: TAKE 2 TABLETS BY MOUTH AT BEDTIME NEEDED FOR INSOMNIA Rx Instructions: TAKE 2 TABLETS BY MOUTH AT BEDTIME NEEDED FOR INSOMNIA tizanidine 4 mg capsule 4 mg PO BID PRN (Reason: Spasms) Qty: 180 0RF ropinirole 0.25 mg tablet 0.25 mg PO BEDTIME Qty: 30 0RF atorvastatin 40 mg tablet See Rx Instructions .ROUTE .COMPLEX Qty: 90 0RF Dose Instruction: TAKE 1 TABLET BY MOUTH EVERY EVENING Rx Instructions: TAKE 1 TABLET BY MOUTH EVERY EVENING ondansetron HCl 4 mg tablet 4 mg PO Q8H PRN (Reason: nausea and vomiting) Qty: 14 0RF hydrocodone-acetaminophen 7.5-325 mg tablet 1 tab PO Q8H PRN (Reason: pain) 10 Days Qty: 30 0RF diazepam [Valium] 2 mg tablet 2 mg PO BID PRN (Reason: muscle spasm) Qty: 7 0RF acetaminophen [Tylenol Arthritis Pain] 650 mg Tablet Extended Release 1,950 mg PO QID PRN (Reason: Pain) topiramate 25 mg capsule, sprinkle 25 mg PO QPM clopidogrel [Plavix] 75 mg tablet See Rx Instructions .ROUTE .COMPLEX Rx Instructions: TAKE 1 TABLET BY MOUTH DAILY Changed pantoprazole 40 mg tablet,delayed release (DR/EC) 40 mg PO Q12H 30 Days Qty: 60 0RF Discontinued metoprolol succinate 25 mg tablet extended release 24 hr 25 mg PO QPM No Action (DME) Bone Growth Stimulator See Rx Instructions .Route .MEDSUPPLY Qty: 1 0RF Rx Instructions: As directed Discharge Orders: Discharge Order (Routine); Ordered 01/29/25 Ordered By: Ja Slaughter Referrals: Sandie Morales FNP [Primary Care Provider] - (We have notified your physician's clinic of the need for a follow-up appointment to be scheduled. If you have not heard from them within the next 2 business days, please call them directly. ) Aliza Oh MD [Physician] - 4-7 days (fibular fracture We have notified your physician's clinic of the need for a follow-up appointment to be scheduled. If you have not heard from them within the next 2 business days, please call them directly. ) Manuel Kirk MD [Physician] - 1 week (low back pain We have notified your physician's clinic of the need for a follow-up appointment to be scheduled. If you have not heard from them within the next 2 business days, please call them directly. ) Discharge Diet: Cardiac Discharge Activity: Resume usual activity Patient Instructions: Leg Fracture (GEN), Anemia (GEN), GI Post Discharge Instructions w/ Anesthesia, Opioid Safety Activity Restrictions/Additional Instructions: - Please use hydrocodone, diazepam, tizanidine sparingly for pain - Do not use together, do not drive or operate machinery or drink while taking medication Discharge Attestations Time Spent in Discharge Care*: greater than 30 min Quality Metrics Clinical Quality Measures [ No reported AMI, CVA or VTE this stay] Coding Level of Care Code 67816 Total time (in minutes) for Discharge: 45 Diagnoses GIB (gastrointestinal bleeding) K92.2
[2025-01-29 11:38] VITALS: BP 125/68; PULSE 81; RESP 20; TEMP 36.8; O2SAT 95
--- NOTE | 2025-01-29 13:08 | PC.NURSE ---
Patient was educated on complications of fracture with son in the room. Written education provided. Pt wheeled to personal vehicle at 1240.
--- NOTE | 2025-01-29 15:42 | PC.NURSE ---
This nurse has attempted to reach patient multiple times to let her know Dr. Slaughter added medications to her discharge. Unable to reach patient or leave a message.
== END 2025-01-29 12:40 | disposition home or self-care (01) | DRG 312 ==
LOC: ER 16:15 → MEDSURG 18:41
PROVIDERS: Student in an Organized Health Care Education/Training Program; Admitting Provider Family Medicine; Emergency Provider Physician Assistant; PCP Nurse Practitioner Family; Visit Provider Family Medicine
PROC: 0DJ08ZZ Inspection of Upper Intestinal Tract, Via Natural or Artificial Opening Endoscopic (ICD-10-PCS; principal; 2025-01-28 08:00)
PROC: 0DJD8ZZ Inspection of Lower Intestinal Tract, Via Natural or Artificial Opening Endoscopic (ICD-10-PCS; CPT 45378; 2025-01-28 08:00)
DX: R55 Syncope and collapse (principal); D50.9 Iron deficiency anemia, unspecified; S82.832A Other fracture of upper and lower end of left fibula, initial encounter for closed fracture; W01.10XA Fall on same level from slipping, tripping and stumbling with subsequent striking against unspecified object, initial encounter; Z86.73 Personal history of transient ischemic attack (TIA), and cerebral infarction without residual deficits; I95.2 Hypotension due to drugs; T40.2X5A Adverse effect of other opioids, initial encounter; T42.8X5A Adverse effect of antiparkinsonism drugs and other central muscle-tone depressants, initial encounter; T42.6X5A Adverse effect of other antiepileptic and sedative-hypnotic drugs, initial encounter; R00.1 Bradycardia, unspecified; M54.50 Low back pain, unspecified; Z79.891 Long term (current) use of opiate analgesic; Z98.1 Arthrodesis status; Z79.02 Long term (current) use of antithrombotics/antiplatelets; Z98.84 Bariatric surgery status; Z87.891 Personal history of nicotine dependence; G89.29 Other chronic pain
CPT/HCPCS: 36415; 43235; 45378; 51702; 70450; 71045; 72100; 72125; 72131; 73521; 73610; 74177; 80053; 81003; 82728; 83540; 83550; 83605; 83735; 84100; 84145; 84443; 84484; 85014; 85018; 85025; 85610; 85730; 86140; 93005; 93306; 93880; 94664; 96372; 96374; 97161; 97530; 99285; J1650; J2270; J2470; J2704; J7030; J9999

== ENCOUNTER → 2025-02-02 13:01 | Outpatient (BNVA) | payer MEDICARE, MEDICAID, SELFPAY | PROVIDERS: PCP Nurse Practitioner Family; Visit Provider Podiatrist Foot & Ankle Surgery | DX: S82.842A Displaced bimalleolar fracture of left lower leg, initial encounter for closed fracture (principal); W10.8XXA Fall (on) (from) other stairs and steps, initial encounter; Z91.81 History of falling | CPT/HCPCS: 27808; 99204 ==

== ENCOUNTER → 2025-02-14 15:11 | Outpatient (BNVA) | payer MEDICARE, MEDICAID, SELFPAY | PROVIDERS: PCP Nurse Practitioner Family; Visit Provider Nurse Practitioner Family | DX: M54.50 Low back pain, unspecified (principal); N39.0 Urinary tract infection, site not specified | CPT/HCPCS: 81000; 87086 ==

== ENCOUNTER → 2025-02-20 14:18 | Outpatient (BNVA) | payer MEDICARE, MEDICAID, SELFPAY | PROVIDERS: PCP Nurse Practitioner Family; Visit Provider Podiatrist Foot & Ankle Surgery | DX: S82.842D Displaced bimalleolar fracture of left lower leg, subsequent encounter for closed fracture with routine healing (principal); X58.XXXD Exposure to other specified factors, subsequent encounter | CPT/HCPCS: 73610; 99213 ==

== ENCOUNTER → 2025-02-21 14:55 | Outpatient (BNVA) | payer MEDICARE, MEDICAID, SELFPAY | PROVIDERS: PCP Nurse Practitioner Family; Visit Provider Orthopaedic Surgery | DX: Z98.1 Arthrodesis status (principal); M54.41 Lumbago with sciatica, right side; M54.42 Lumbago with sciatica, left side; G89.29 Other chronic pain | CPT/HCPCS: 72100; 99213 ==

== ENCOUNTER 2025-03-10 13:18 | Outpatient (CLI) | payer MEDICARE, MEDICAID, SELFPAY ==
--- NOTE | 2025-03-10 13:24 | MM_ITS ---
WS: [id number] BILATERAL 3D TOMOSYNTHESIS DIGITAL SCREENING MAMMOGRAPHY WITH CAD CLINICAL INFORMATION: SCREENING HISTORY: Screening mammogram. No current complaints. COMPARISON: 2022 TECHNIQUE: Bilateral CC and MLO views. FINDINGS: Scattered fibroglandular densities bilaterally. No suspicious focal mass, asymmetry, calcifications, or architectural distortion. No evidence of malignancy. Incidental punctate and lucent centered calcifications. Stable ovoid nodules LEFT breast measuring 8 mm previously demonstrated to represent a cyst by ultrasound. MM/MM [facility] tomosynthesis [id number] IMPRESSION: DENSITY: There are scattered areas of fibroglandular density. BI-RADS: 2 - Benign. FOLLOW UP: 1 Year Follow-up Recommend return to annual screening mammography.
== END 2025-03-10 13:19 | disposition home or self-care (01) ==
PROVIDERS: PCP Nurse Practitioner Family; Visit Provider Nurse Practitioner Family
DX: Z12.31 Encounter for screening mammogram for malignant neoplasm of breast (principal); R92.323 Mammographic fibroglandular density, bilateral breasts; R92.1 Mammographic calcification found on diagnostic imaging of breast; N64.89 Other specified disorders of breast
CPT/HCPCS: 77063; 77067

== ENCOUNTER → 2025-04-10 14:16 | Outpatient (BNVA) | payer MEDICARE, MEDICAID, SELFPAY | PROVIDERS: PCP Nurse Practitioner Family; Visit Provider Specialist | DX: M25.551 Pain in right hip (principal); M25.552 Pain in left hip; Z98.1 Arthrodesis status; M43.16 Spondylolisthesis, lumbar region | CPT/HCPCS: 73523; 99214 ==

== ENCOUNTER → 2025-06-07 10:40 | Outpatient (BNVA) | payer MEDICARE, SELFPAY | PROVIDERS: PCP Nurse Practitioner Family; Visit Provider Nurse Practitioner Family | DX: I10 Essential (primary) hypertension (principal); R53.83 Other fatigue | CPT/HCPCS: 80053; 80061; 85025 ==

== ENCOUNTER → 2025-06-13 14:10 | Outpatient (BNVA) | payer OTHER, MEDICAID, SELFPAY | PROVIDERS: PCP Nurse Practitioner Family; Visit Provider Orthopaedic Surgery | DX: S32.050A Wedge compression fracture of fifth lumbar vertebra, initial encounter for closed fracture (principal); Z98.1 Arthrodesis status; M43.16 Spondylolisthesis, lumbar region; M25.551 Pain in right hip; M25.552 Pain in left hip; G89.29 Other chronic pain | CPT/HCPCS: 72100; 99213 ==

== ENCOUNTER 2025-07-20 13:28 | Emergency (ER) | payer OTHER, MEDICAID, SELFPAY ==
--- OUTSIDE RECORDS SUMMARY | 2024-08-13 04:00 | XMS_ITS ---
Author Organization [facility] Address [address] [place] [address] Care Team Providers Care [place] Name Role Phone Manuel Espinoza Primary Care Provider Unavailabl e Migration, Provider Unavailable Unavailable REASON FOR VISIT EMR-Toan Encounters Encounter Location Date Provider Diagnosis Migrated_Facility 0 0 08/13/2024 Provider Migration Plan Of Treatment No Information Progress Notes * Tanja TODDhDOB:1955 (70 yo F)Acc No.[id number]:08/13/2024 Patient: Bianca SENIOR :1955 A ge:69 Y S ex:Female Phone: Address:[address] [place] [address], [id number] Subjective: * Chief Complaints: * E MR-Toan * * Date:
--- OUTSIDE RECORDS SUMMARY | 2024-08-14 04:00 | XMS_ITS ---
Author Organization [facility] Address [address] [place] [address] Care Team Providers Care Labor Relations Manager Name Role Phone Manuel Espinoza Primary Care Provider Unavailabl e Migration, Provider Unavailable Unavailable Allergies Allergen (clinical drug ingredient) Drug/Non Drug Allergy documented on EMR Reaction Allergy Type Onset Date Status metronidazole Flagyl Unknown Drug Allergy Act qing REASON FOR VISIT EMR-Toan Medications Medication SIG (Take, Route, Frequency, Duration) Notes Start Date End Date Status Anti-Diarrheal (loperamide) *Reorder from Med[facility]pan for eRx and Interaction Alerts* Active atorvastatin *Reorder from Med[facility]pan for eRx and Interaction Alerts* Active Sleep Aid (DiphenhydrAMINE) *Pick strength-form from Med[employer]pan for eRX* Active clopidogrel *Reorder from Med[facility]pan for eRx and Interaction Alerts* Active ropinirole *Reorder from Med[facility]pan for eRx and Interaction Alerts* Active Pregabalin *Pick strength-f orm from Med[employer]pan for eRX* Active Metoprolol Tartrate *Pick streng th-form from [employer]pan for eRX* Active Adult One Daily Multivitamin *Reorder from Med[facility]pan for eRx and Interaction Alerts* Active hydrOXYzine HCl *Pick strength-f orm from Medispan for eRX* Active arthritis *Reorder from Med[facility]pan for eRx and Interaction Alerts* Active Prempro *Pick strength-f orm from Med[employer]pan for eRX* Active Sertraline *Reorder from [facility]pan for eRx and Interaction Alerts* Active Calcium 500 + D (D3) *Reorder fr om [employer]pan for eRx and Interaction Alerts* Active Topiramate *Pick strength-f orm from [employer]pan for eRX* Active Social History Social History Additional Details Category Social Info Options Details Migrated Social History Migrated Social History Currently on disability? - Yes, Marital Status - Encounters Encounter Location Date Provider Diagnosis Migrated_Facility 0 0 08/14/2024 Provider Migration Plan Of Treatment No Information Progress Notes * Tanja DAVIDhDOB:1955 (70 yo F)Acc No.[id number]:08/14/2024 Patient: Bianca SENIOR :1955 A ge:69 Y S ex:Female Phone: Address:[address] [place] [address], [phone] Subjective: * Chief Complaints: * E MR-Toan * Surgical History: Gallbladder removal Gastric bypass surgery Tonsillectomy Tubal ligation * Family History: M igrated Family History: : Cancer, c hronic pain, D iabetes, f ibromyalgia, H eart disease, p sychiatric problems, S troke. * Social History: M igrated Social History: M igrated Social History: Currently on disability? - Yes, M arital Status - . * Medications: T akingatorvastatin , Notes to Pharmacist: *Reorder from Medispan for eRx and Interaction Alerts*Sertraline , Notes to Pharmacist: *Reorder from Medispan for eRx and Interaction Alerts*Sleep Aid (DiphenhydrAMINE) , Notes to Pharmacist: *Pick strength-form from Medispan for eRX*Prempro , Notes to Pharmacist: *Pick strength-form from Medispan for eRX*Calcium 500 + D (D3) , Notes to Pharmacist: *Reorder from Medispan for eRx and Interaction Alerts*clopidogrel , Notes to Pharmacist: *Reorder from Medispan for eRx and Interaction Alerts*arthritis , Notes to Pharmacist: *Reorder from Medispan for eRx and Interaction Alerts*Pregabalin , Notes to Pharmacist: *Pick strength-form from Medispan for eRX*Adult One Daily Multivitamin , Notes to Pharmacist: *Reorder from Medispan for eRx and Interaction Alerts*Anti-Diarrheal (loperamide) , Notes to Pharmacist: *Reorder from Medispan for eRx and Interaction Alerts*ropinirole , Notes to Pharmacist: *Reorder from Medispan for eRx and Interaction Alerts*Topiramate , Notes to Pharmacist: *Pick strength- form from Medispan for eRX*hydrOXYzine HCl , Notes to Pharmacist: *Pick strength-form from Medispan for eRX*Metoprolol Tartrate , Notes to Pharmacist: *Pick strength-form from Medispan for eRX*Taking atorvastatin , Notes to Pharmacist: *Reorder from Medispan for eRx and Interaction Alerts*Taking Sertraline , Notes to Pharmacist: *Reorder from Medispan for eRx and Interaction Alerts*Taking Sleep Aid (DiphenhydrAMINE) , Notes to Pharmacist: *Pick strength-form from Medispan for eRX*Taking Prempro , Notes to Pharmacist: *Pick strength-form from Medispan for eRX*Taking Calcium 500 + D (D3) , Notes to Pharmacist: *Reorder from Medispan for eRx and Interaction Alerts*Taking clopidogrel , Notes to Pharmacist: *Reorder from Medispan for eRx and Interaction Alerts*Taking arthritis , Notes to Pharmacist: *Reorder from Medispan for eRx and Interaction Alerts*Taking Pregabalin , Notes to Pharmacist: *Pick strength-form from Medispan for eRX*Taking Adult One Daily Multivitamin , Notes to Pharmacist: *Reorder from Medispan for eRx and Interaction Alerts*Taking Anti-Diarrheal (loperamide) , Notes to Pharmacist: *Reorder from Medispan for eRx and Interaction Alerts*Taking ropinirole , Notes to Pharmacist: *Reorder from Medispan for eRx and Interaction Alerts*Taking Topiramate , Notes to Pharmacist: *Pick strength-form from Medispan for eRX*Taking hydrOXYzine HCl , Notes to Pharmacist: *Pick strength-form from Medispan for eRX*Taking Metoprolol Tartrate , Notes to Pharmacist: *Pick strength-form from Medispan for eRX* * Allergies: F lagyl: Allergy * * Date:
[2025-07-20 13:34] VITALS: BP 100/65; PULSE 69; RESP 18; TEMP 37; O2SAT 97; BMI 28.3
--- OUTSIDE RECORDS SUMMARY | 2025-07-20 13:39 | XMS_ITS | Patient Health Record ---
Author Organization [facility] Address [address] [place] [address] Care Team Providers Care Pals Specialist Name Role Phone Manuel Espinoza Primary Care Provider Unavailabl e Migration, Provider Unavailable Unavailable Reason For Referral No Information Medications Medication SIG (Take, Route, Frequency, Duration) Notes Start Date End Date Status Metoprolol Tartrate *Pick streng th-form from [facility] for eRX* Active atorvastatin *Reorder from [facility] for eRx and Interaction Alerts* Active Sleep Aid (DiphenhydrAMINE) *[facility]* Active Sertraline *[facility] for eRx and Interaction Alerts* Active ropinirole *Reorder from [facility] for eRx and Interaction Alerts* Active Prempro *Pick strength-f orm from [facility] for eRX* Active Anti-Diarrheal (loperamide) *Reorder from [facility] for eRx and Interaction Alerts* Active Pregabalin *Pick strength-f orm from [facility] for eRX* Active Adult One Daily Multivitamin *[facility] for [facility] and Interaction Alerts* Active clopidogrel *Reorder from [facility] for eRx and Interaction Alerts* Active Calcium 500 + D (D3) *Reorder fr om [facility] for eRx and Interaction Alerts* Active hydrOXYzine HCl *Pick strength-f orm from [facility] for eRX* Active arthritis *[facility] for eRx and Interaction Alerts* Active Topiramate *Pick strength-f orm from [facility] for eRX* Active Social History Social History Additional Details Category Social Info Options Details Migrated Social History Migrated Social History Currently on disability? - Yes, Marital Status - Encounters Encounter Location Date Provider Diagnosis Migrated_Facility 0 0 08/14/2024 Provider Migration Migrated_Facility 0 0 08/13/2024 Provider Migration Plan Of Treatment No Information Medical (General) History Surgical History Surgery Date(Month/Year) Gallbladder removal Gastric bypass surgery Tonsillectomy Tubal ligation
--- OUTSIDE RECORDS SUMMARY | 2025-07-20 13:39 | XMS_ITS | Encounter Summary ---
Author Organization [facility], [facility] Address [address] [place] [address] Phone Care Team Providers Care Senior Software Manager Name Role Phone Louisa Starks MD Primary Care Provider Encounter Details Date Type Department Care Team (Late st Contact Info) Description 08/22/2021 Orders Only [facility], [facility] [address] [place] [address] Stage 3 chronic kidney disease, not otherwise specified (HCC) Social History Tobacco Use Types Packs/Day Years Used Date Smoking Tobacco: Never Assessed Comments Unknown Sex and Gender Information Value Date Recorded Sex Assigned at Not on file Legal Sex Female 10:24 AM EDT Gender Identity Not on file Sexual Orientation Not on file documented as of this encounter Plan of Treatment Upcoming Encounters Date Type Department Care Team (Late st Contact Info) Description 07/26/2025 Orders Only [facility], [address] [address] Camille Jones NP [address] [place] [address] Chronic kidney disease stage 3A (HCC); Vitamin D deficiency, not otherwise specified 07/26/2025 11:00 AM CDT Office Visit [facility], [address] [address] Mar Davis NP [address] [address] documented as of this encounter Visit Diagnoses Diagnosis Stage 3 chronic kidney disease, not otherwise specified (HCC) Chronic kidney disease stage 3A (HCC) Vitamin D deficiency, not otherwise specified documented in this encounter Care Teams Senior Software Manager Relationship Specialty Start Date End Date Louisa Starks MD [address] [place] [address] PCP - General Family Medicine 08/22/21 documented as of this encounter
--- OUTSIDE RECORDS SUMMARY | 2025-07-20 13:39 | XMS_ITS | Patient Health Record ---
Author Organization [facility] Address [address] [place] [address] Care Team Providers Care Stock Taker Name Role Phone MAYA FLORES M.D. Primary Care Provider Un available CARLA ALONSO Unavailable [phone] Allergies Allergen (clinical drug ingredient) Drug/Non Drug Allergy documented on EMR Reaction Allergy Type Onset Date Status metronidazole Flagyl Unknown Drug Allergy Act qing Reason For Referral No Information Medications Medication SIG (Take, Route, Frequency, Duration) Notes Start Date End Date Status Atorvastatin Calcium 40 MG Tablet 1 tablet Orally Once a day Active Aspirin 81 81 MG Tablet Delayed Release 1 tablet Orally Once a day Active Vitamin B 12 Not-Carl ing HYDROcodone-Acetaminophen 5-325 MG Tablet 1 tablet as needed Orally every 6 hrs Active Gabapentin Active Ferrous Sulfate 325 (65 Fe) MG Tablet 1 tablet Orally Once a day Active Clopidogrel & Aspirin Active Nabumetone 500 MG Tablet 1 tablet Orally Twice a day Active Multivitamin - Tablet 1 tablet Orally On ce a day Active Toprol XL 25 MG Tablet Extended Release 24 Hour 1 tablet Orally Once a day Active hydrOXYzine HCl 10 MG Tablet as directed Orally Active Diphenhydramine Cit-Aspirin Active Prempro 0.45-1.5 MG Tablet 1 tablet Oral ly Once a day Active Pantoprazole Sodium 40 MG Tablet Delayed Release 1 tablet Orally Once a day Active Ondansetron 4 MG Tablet Disintegrating 1 tablet on the tongue and allow to dissolve Orally Once a day Active Social History Tobacco Use: Social History Observation Description Date Details (start date - stop date) Former Smoker NA - NA Social History Drugs/Alcohol: Social Info Question Answer Notes Alcohol Screen (Audit-C) Did you have a drink containing alcohol in the past year? No Points 0 Interpretation Negative Drugs Have you used drugs other than those for medical reasons in the past 12 months? No Caffeine Intake: 1-2 cups per day Tobacco Use: Social Info Question Answer Notes Smoking Are you a: former smoker Additional Details Category Social Info Options Details Drugs/Alcohol: Do you smoke marijuana? De nies Do you drink alcohol? No Problems Problem Type SNOMED Code ICD Code Onset Dates Problem Status W/U Status Risk Notes Problem Cerebral ischemia (847180118) Cerebral ischemia (I67.82) Active confirmed 39663. Ekg Problem Disorder of lipid metabolism (251198546) Lipid disorder (E78.9) Active confirmed Problem Essential hypertension (03206901) Essential hypertension (I10) Active confirmed Plan Of Treatment No Information Insurance Providers Payer Name Payer Address Payer Phone Subscriber Number Group Number Insured Name Patient Relationship to Insured Coverage Start Date Coverage End Date [employer] [address] [place] [address] [id number] NO TODD Self - patient is the insured [facility] [address] [facility] [place] [phone] [id number] NO TODD Self - patient is the insured
--- OUTSIDE RECORDS SUMMARY | 2025-07-20 13:39 | XMS_ITS | Clinical Summary ---
Author Organization [facility] Administrative Offices Address [address] [place] [address] Care Team Providers Care Assessment Expert Name Role Phone Non-Staff, Physician Primary Care Provider Unava ilable Allergies Active Allergy Reactions Criticality Noted Date Comments Metronidazole Other (See Comments) 07/15/2021 Patient had reaction while during surgery. Symptoms unknown just informed not to use Medications sertraline (ZOLOFT) 50 mg tablet Take 50 mg by mouth daily. Active clopidogreL (PLAVIX) 75 mg Tablet Take 75 mg by mouth. Active hydrOXYzine HCL (ATARAX) 25 mg tablet Take 25 mg by mouth 2 times daily. Active metoprolol succinate (TOPROL XL) 25 mg Extended Release 24 hour tablet Take 25 mg by mouth daily. Active topiramate (TOPAMAX) 25 mg tablet Take 25 mg by mouth 2 times daily. Active OTHER Sleep aid softgel Active ondansetron (ZOFRAN ODT) 4 mg Tablet, Rapid Dissolve Take 4 mg by mouth every 8 hours as needed for Nausea/Emesis . Dissolve tablet on top of tongue, then swallow with saliva. Active pantoprazole (PROTONIX) [address] for susp in Packet 40 mg daily. Active loperamide (IMODIUM) 2 mg capsule Take 2 mg by mouth every 3 hours as needed for Diarrhea/Loos e Stools. Active pregabalin (Lyrica) 50 mg Capsule Take 1 Capsule (50 mg) by mouth every 12 hours. 14 Capsule 08/30/2021 Active pregabalin (Lyrica) 75 mg Capsule Take 1 Capsule (75 mg) by mouth every 12 hours. 60 Capsule 3 09/06/2021 Active tiZANidine (ZANAFLEX) 4 mg Tablet Take 4 mg by mouth every 6 hours as needed for Spasm. Active Active Problems No known active problems Encounters Date Type Department Care Team Description 07/11/2025 External Device Data ST[facility] ABSTRACTION Provider, Abstract 07/04/2025 External Device Data [facility] ABSTRACTION Provider, Abstract 06/20/2025 External Device Data [facility] ABSTRACTION Provider, Abstract 06/07/2025 External Device Data [facility] ABSTRACTION Provider, Abstract 05/03/2025 External Device Data [facility] ABSTRACTION Provider, Abstract 05/03/2025 External Device Data [facility] ABSTRACTION Provider, Abstract 05/02/2025 External Device Data [facility] ABSTRACTION Provider, Abstract from Last 3 Months Immunizations Immunization Administration Dates Next Due Influenza Seasonal Unspecified Formulation IM Family History Medical History Relation Name Comments Heart Disease Father Diabetes Mother Hypertension Mother Stroke Mother Heart Disease Other sister (#2) Hypertension Other sister (#2) Kidney Disease Other sister (#2) Diabetes Sister Heart Disease Sister Hypertension Sister Stroke Sister Relation Name Status Comments Father Mother Other sister (#2) Other Sister Alive Son Alive Social History Tobacco Use Types Packs/Day Years Used Date Smoking Tobacco: Never Smokeless Tobacco: Never Alcohol Use Standard Drinks/Week Comments Never 0 (1 standard drink = 0.6 oz pur e alcohol) Feeling Safe Answer Date Recorded Are you in a relationship wi th someone who hurts you emotionally and/or physically? No 06/27/2023 Comments No Sex and Gender Information Value Date Recorded Sex Assigned at Not on file Legal Sex Female 3:22 PM CDT Gender Identity Not on file Sexual Orientation Not on file Last Filed Vital Signs Vital Sign Reading Time Taken Comments Blood Pressure 133/80 06/27/2023 8:57 PM CDT Pulse 69 06/27/2023 8:57 PM CDT Temperature 35.8 C (96.5 F) 06/27/2023 7:33 PM CDT Respiratory Rate 18 06/27/2023 8:57 PM CDT Oxygen Saturation 99% 06/27/2023 8:57 PM CDT Inhaled Oxygen Concentration - - Weight 89.5 kg (197 lb 6.4 oz) 06/27/2023 7:33 P M CDT Height 162.6 cm (5' 4 ) 06/27/2023 7:33 PM CDT Body Mass Index 33.88 06/27/2023 7:33 PM CDT Plan of Treatment Health Maintenance Due Date Last Done Comments Pre-Diabetes and Diabetes Screening 1955 DTAP/TDAP/TD VACCINES (1 - Tdap) 1976 BREAST CANCER SCREENING 1997 COLORECTAL SCREENING 2002 Colorectal Cancer Screening 2002 FIT-DNA Q 3 years 2002 FIT/FOBT Q 1 year 2002 Flex Sig/CT Colonography Q 5 years 2002 PNEUMOCOCCAL VACCINE 50+ YEARS (1 of 1 - PCV) 03/30/20 07 ZOSTER VACCINE (1 of 2) 2007 RSV VACCINE (60+ or ) (1 - Risk 60-74 years 1-dose series) 2017 OSTEOPOROSIS SCREENING 2022 INFLUENZA VACCINE (#1) 2025 08/08/2020 COVID-19 Vaccine (2 - season) 06/19/202505/2021 Medical Devices Explanted Type Area Phlebotomy Coordinator Device Identifier Shelf Expiration Date Model / Serial / Lot Spinal Cord Stimulator And Leads X 2 Explanted:Qty: 1 on 08/09/2021 at [facility] Insurance MEDICAID [place] DUAL COMPLETE HMO [id number] [id number] Care Teams Assessment Expert Relationship Specialty Start Date End Date Non-Staff, Physician NO ADDRESS ON FILE PCP - General 08/09/21
--- OUTSIDE RECORDS SUMMARY | 2025-07-20 13:39 | XMS_ITS | Clinical Summary ---
Author Organization [facility] Facility Address [address] [place] [id number] Care Team Providers Care Bunch Trimmer Mold Name Role Phone Louisa Starks MD Primary Care Provider + [phone] Allergies Active Allergy Reactions Criticality Noted Date Comments Metronidazole 07/15/2021 Other reaction(s): Other (See Comments) Patient had reaction while during surgery. Symptoms unknown just informed not to use Other reaction(s): Unknown Medications topiramate (TOPAMAX) 25 MG tablet Take 25 mg by mouth in the morning and 25 mg in the evening. Active hydrOXYzine (ATARAX) 25 MG tablet Take 50 mg by mouth 2 (two) times a day if needed Active clopidogrel (PLAVIX) 75 MG tablet Take 75 mg by mouth 1 (one) time each day Active metoprolol succinate XL (TOPROL XL) 25 MG 24 hr tablet Take 25 mg by mouth in the morning. Active pantoprazole (PROTONIX) 40 MG packet 40 mg in the morning. Active rOPINIRole (REQUIP) 0.25 MG tablet Take 0.25 mg by mouth every night Active atorvastatin (LIPITOR) 40 MG tablet Take 40 mg by mouth 1 (one) time each day Active pregabalin (LYRICA) 100 MG capsule Take 100 mg by mouth in the morning and 100 mg in the evening. 09/06/2021 Active acetaminophen (TYLENOL 8 HOUR) 650 MG 8 hr tablet Take 650 mg by mouth every 8 (eight) hours if needed for mild pain Do not crush, chew, or split. Active ondansetron (ZOFRAN) 4 MG tablet Take 4 mg by mouth every 8 (eight) hours if needed for nausea or vomiting 12/25/2023 Active tiZANidine (ZANAFLEX) 4 MG tablet Take 4 mg by mouth every 6 (six) hours if needed Active traZODone (DESYREL) 100 MG tablet Take 100 mg by mouth every night 12/31/2023 Active HYDROcodone-mariano taminophen (NORCO) 5-325 MG per tablet Take 1 tablet by mouth every 6 (six) hours if needed 12/25/2023 Active sertraline (ZOLOFT) 100 MG tablet Take 200 mg by mouth 1 (one) time each day 07/11/2024 Active Active Problems Problem Noted Date Diagnosed Date Chronic kidney disease stage 3B 12/23/2021 Benign essential hypertension 12/23/2021 Immunizations Immunization Administration Dates Next Due Influenza, Unspecified 08/08/2020 Family History Medical History Relation Comments Hypertension Child Heart disease Father Cancer Mother Stroke Mother Anemia Sister Cancer Sister Diabetes Sister Gout Sister Heart disease Sister Hypertension Sister Kidney disease Sister Stroke Sister Relation Status Comments Child Alive Father Mother Sister Social History Tobacco Use Types Packs/Day Years Used Date Smoking Tobacco: Former Smokeless Tobacco: Never Tobacco Cessation:Counseling Given: Not Answered Alcohol Use Standard Drinks/Week Comments Yes 0 (1 standard drink = 0.6 oz pur e alcohol) occasionally Comments Unknown Sex and Gender Information Value Date Recorded Sex Assigned at Not on file Legal Sex Female 10:24 AM EDT Gender Identity Not on file Sexual Orientation Not on file Last Filed Vital Signs Vital Sign Reading Time Taken Comments Blood Pressure 112/60 07/26/2024 10:55 AM CDT Pulse 60 07/26/2024 10:55 AM CDT Temperature - - Respiratory Rate - - Oxygen Saturation 98% 07/26/2024 10:55 AM CDT Inhaled Oxygen Concentration - - Weight 84 kg (185 lb 3.2 oz) 07/26/2024 10:55 AM CDT Height 162.6 cm (5' 4 ) 07/26/2024 10:55 AM CDT Body Mass Index 31.79 07/26/2024 10:55 AM CDT Plan of Treatment Upcoming Encounters Date Type Department Care Team (Late st Contact Info) Description 07/26/2025 Orders Only [facility] [address] [place] [id number] Camille Jones NP [address] [place] [address] Chronic kidney disease stage 3A (HCC); Vitamin D deficiency, not otherwise specified 07/26/2025 11:00 AM CDT Office Visit [facility] [address] [place] [address] Mar Davis NP [address] [place] [address] Health Maintenance Due Date Last Done Comments Breast Cancer Screening 1957 Pneumococcal Vaccine: 50+ Ye ars (1 of 2 - PCV) 1976 Colorectal Cancer Screening: Annual FOBT 2006 Colorectal Cancer Screening: Colonoscopy 2006 Colorectal Cancer Screening: Sigmoidoscopy 2006 Influenza Vaccine (#1) 2025 08/08/2020 Hepatitis B Vaccine Aged Out No longe r eligible based on patient's age [place] [address] [place] [id number] [place] [address] Medicare Medicaid [place] ([facility]) Care Teams Bunch Trimmer Mold Relationship Specialty Start Date End Date Louisa Starks MD [address] [place] [address] PCP - General Family Medicine 08/22/21
--- NOTE | 2025-07-20 15:13 | W.ED.BACK ---
HPI - Back Pain/Injury General: Chief Complaint: Back Pain/Injury Stated Complaint: back pain Time Seen by Provider: 07/20/25 15:00 History of Present Illness: 70-year-old female presents emergency room with complaint of back pain. She has chronic back pain overnight she started having significantly worse pain spasmodic like sharp. She has tried various medications she has been prescribed before including hydrocodone tizanidine and gabapentin. She has not had any urinary retention or fecal incontinence. No trauma. Patient had 100 mcg of fentanyl and route. She has previously had back surgery most recent 1 being in October of this year. Associated symptoms: Deny abdominal pain, chills, dysuria, fever(s) or urinary urgency Related Data Home Medications ?Medication ?Instructions ?Recorded ?Confirmed acetaminophen 650 mg 1,950 mg PO QID PRN Pain 01/21/22 06/13/25 tablet,extended release (Tylenol Arthritis Pain) Previous Rx's ?Medication ?Instructions ?Recorded Bone Growth Stimulator #1 ea 11/03/24 CAM walker #1 ea 02/02/25 corset brace lumbar #1 ea 02/21/25 atorvastatin 40 mg tablet See Rx Instructions .Route 04/05/25 .COMPLEX #90 tabs pantoprazole 40 mg tablet,delayed 40 mg PO Q12H 30 days #60 tabs 05/08/25 release hydroxyzine HCl 50 mg tablet 50 mg PO QID PRN insomnia/anxiety 05/15/25 #120 tabs sertraline 100 mg tablet (Zoloft) 200 mg (2 x 100 mg) PO DAILY #60 05/15/25 tabs trazodone 100 mg tablet See Rx Instructions .Route 05/15/25 .COMPLEX #60 tabs clopidogrel 75 mg tablet See Rx Instructions .Route 06/07/25 .COMPLEX #30 tabs prednisone 20 mg tablet 20 mg PO TID #15 tabs 07/20/25 pregabalin 75 mg capsule (Lyrica) 75 mg PO BID #60 caps 07/20/25 tizanidine 4 mg tablet 4 mg PO Q6H PRN muscle spasticity 07/20/25 #20 tabs hydrocodone 7.5 mg-acetaminophen 1 tab PO Q8H pain 7 days #21 tabs 07/26/25 325 mg tablet metoprolol succinate 25 mg 25 mg PO .daily #90 tabs 10/08/25 tablet,extended release 24 hr ondansetron HCl 4 mg tablet 4 mg PO Q8H PRN nausea and 07/26/25 vomiting #14 tabs ropinirole 0.5 mg tablet 0.5 mg PO .at hs #30 tabs 07/26/25 Allergies Allergy/AdvReac Type Severity Reaction Status Date / Time metronidazole (From Flagyl) Allergy Unknown Verified 06/07/25 10:02 Review of Systems Const: Denies: fever(s) or chills Card: Denies: chest pain Resp: Denies: dyspnea GI: Denies: abdominal pain : Denies: dysuria, urinary frequency or urinary urgency Musc: Reports: back pain; Denies: neck pain or extremity pain Skin/Breast: Denies: rash PFSH ED PFSH: Medical History CVA (cerebral vascular accident) TIA (transient ischemic attack) Psychiatric care Surgical History Status post lumbar spinal fusion History of tubal ligation History of gastric bypass x2 History of cholecystectomy Social History Smoking and tobacco/nicotine status: never used tobacco/nicotine Quit status (tobacco/nicotine): has quit using Year quit tobacco: 1989 Second hand smoke exposure: No Alcohol intake: former Year of sobriety/quit date alcohol: 1991 Substance/Drug Use: former Adopted: No Caregiver/support person: No Lives independently: No Household members: family Marital status: / Do you think of yourself as: Straight/Heterosexual Current gender identity: Female Physical Exam Const: GENERAL APPEARANCE: cooperative ORIENTATION/CONSCIOUSNESS: Yes awake, Yes oriented to person, Yes oriented to place and Yes oriented to time HENMT: COMMON NORMALS: normocephalic, atraumatic and hearing grossly normal bilaterally HEAD & SCALP: normocephalic and atraumatic Resp: COMMON NORMALS: normal respiratory effort, No retractions, No use of accessory muscles and clear to auscultation bilaterally AUSCULTATION: clear to auscultation bilaterally Cardio: COMMON NORMALS: regular rate, regular rhythm and No murmurs present (Cardio) RATE: regular rate RHYTHM: regular rhythm GI: COMMON NORMALS: Soft to palpation and No hepatosplenomegaly present AUSCULTATION: Yes normoactive bowel sounds PALPATION: Yes Soft to palpation, No Tenderness to palpation present (GI), No Guarding due to palpation present (GI) and Yes No hepatosplenomegaly present Extremity: COMMON NORMALS: normal to inspection, capillary refill normal, no clubbing, cyanosis or edema, no calf tenderness and no pedal edema Neuro: SENSORIUM/ORIENTATION: Yes oriented to person, Yes oriented to place and Yes oriented to time Skin: COMMON NORMALS: no rashes or lesions noted GENERAL SKIN EXAM: no rashes or lesions noted Course Vital Signs: Vital signs: Vital Signs Temperature 98.6 F 07/20/25 13:34 Pulse Rate 78 07/20/25 16:10 Respiratory Rate 22 H 07/20/25 15:23 Blood Pressure 116/57 07/20/25 16:10 Pulse Oximetry 97 07/20/25 16:10 Oxygen Delivery Me thod Room Air 07/20/25 15:25 MDM - Back Pain/Injury Medical Decision Making No red flag symptoms or history of trauma. She had surgery earlier this year. She has no urinary retention no fecal incontinence. Improved with medications given in the emergency room will discharge patient home with prednisone taper start on Lyrica 75 twice daily DC tizanidine. She can use hydrocodone prescribed previously and follow-up with her primary care doctor Medical Records I reviewed the patient's medical records. Labs I reviewed the patient's lab results. No radiology studies performed this visit Discharge Plan Discharge Patient Disposition: Home Clinical Impression: Muscle spasm Low back pain Qualifiers: Chronicity: chronic Back pain laterality: bilateral Sciatica presence: with sciatica Sciatica laterality: bilateral sciatica Qualified Code(s): M54.42 - Lumbago with sciatica, left side Condition: Stable Prescriptions: New tizanidine 4 mg tablet 4 mg PO Q6H PRN (Reason: muscle spasticity) Qty: 20 0RF Rx Instructions: do not exceed 3 doses per 24 hrs prednisone 20 mg tablet 20 mg PO TID Qty: 15 0RF Rx Instructions: 1 p.o. 3 times daily x3 days, 1 p.o. twice daily x2 days, 1 p.o. daily x2 days pregabalin [Lyrica] 75 mg capsule 75 mg PO BID Qty: 60 0RF No Action (DME) CAM walker See Rx Instructions .Route .MEDSUPPLY Qty: 1 0RF Rx Instructions: As directed (DME) corset brace lumbar See Rx Instructions .Route .MEDSUPPLY Qty: 1 0RF Rx Instructions: As directed pantoprazole 40 mg tablet,delayed release (DR/EC) 40 mg PO Q12H 30 Days Qty: 60 2RF clopidogrel 75 mg tablet See Rx Instructions .ROUTE .COMPLEX Qty: 30 2RF Dose Instruction: Take 1 tablet by mouth once daily Rx Instructions: Take 1 tablet by mouth once daily (DME) Bone Growth Stimulator See Rx Instructions .Route .MEDSUPPLY Qty: 1 0RF Rx Instructions: As directed atorvastatin 40 mg tablet See Rx Instructions .ROUTE .COMPLEX Qty: 90 0RF Dose Instruction: TAKE 1 TABLET BY MOUTH EVERY EVENING Rx Instructions: TAKE 1 TABLET BY MOUTH EVERY EVENING hydroxyzine HCl 50 mg tablet 50 mg PO QID PRN (Reason: insomnia/anxiety) Qty: 120 2RF sertraline [Zoloft] 100 mg tablet 200 mg PO DAILY Qty: 60 2RF trazodone 100 mg tablet See Rx Instructions .ROUTE .COMPLEX Qty: 60 2RF Dose Instruction: TAKE 2 TABLETS BY MOUTH AT BEDTIME NEEDED FOR INSOMNIA Rx Instructions: TAKE 2 TABLETS BY MOUTH AT BEDTIME NEEDED FOR INSOMNIA hydrocodone-acetaminophen 7.5-325 mg tablet 1 tab PO Q8H 7 Days Qty: 21 0RF ropinirole 0.5 mg tablet 0.5 mg PO .at hs Qty: 30 0RF ondansetron HCl 4 mg tablet 4 mg PO Q8H PRN (Reason: nausea and vomiting) Qty: 14 0RF metoprolol succinate 25 mg tablet extended release 24 hr 25 mg PO .daily Qty: 90 0RF acetaminophen [Tylenol Arthritis Pain] 650 mg Tablet Extended Release 1,950 mg PO QID PRN (Reason: Pain) Discharge Orders: Discharge ED (Routine); Ordered 07/20/25 Ordered By: Tyler Edouard Referrals: Sandie Morales FNP [Primary Care Provider, Family Practice] Discharge Diet: Usual diet Discharge Activity: Limit activity as instructed Patient Instructions: Opioid Safety, Pain Management, Patient Portal & Marleny Instructions Activity Restrictions/Additional Instructions: Thank you for choosing [facility] for your healthcare needs today. It is very important that you follow up as instructed or that you return to the Emergency Department should you have concerns or if your condition changes or worsens in any way. Emergency department visits are focused on emergent conditions, in some cases you may require further evaluation on an outpatient basis. You were seen in the emergency room with complaints of low back pain. Your pain responded to the medications given recommend starting a steroid taper. Additionally will have you start Lyrica 75 mg twice a day tizanidine as needed continue the previously prescribed hydrocodone as needed and follow-up with your primary care doctor. (Please note that included in your discharge packet is information concerning opioid safety and pain management. This information is given to all patients were discharged from the ER regardless of their discharge diagnosis or the medicines they usually take or are prescribed.) Print Language: Dominican Coding Level of Care Code ED Line Manager for Barbara Brown
[2025-07-20 15:23] VITALS: RESP 22; O2SAT 99
[2025-07-20] MEDS: morphine 4 mg/mL SDV 1 mL IVP (15:23)
[2025-07-20 15:25] VITALS: BP 134/68; PULSE 64; O2SAT 98
--- NOTE | 2025-07-20 15:28 | PC.NURSE ---
educated pt on need for urine sample, offered pt bedside commode/straight cath/bed rascon. pt denied at this time, states will talk about urine when pain is better . pain medications given at this time
[2025-07-20 16:10] VITALS: BP 116/57; PULSE 78; O2SAT 97
== END 2025-07-20 16:11 | disposition home or self-care (01) ==
PROVIDERS: Emergency Provider Family Medicine; PCP Nurse Practitioner Family
DX: M62.838 Other muscle spasm (principal); M54.42 Lumbago with sciatica, left side; Z79.02 Long term (current) use of antithrombotics/antiplatelets; Z87.891 Personal history of nicotine dependence; Z86.73 Personal history of transient ischemic attack (TIA), and cerebral infarction without residual deficits
CPT/HCPCS: 96374; 96375; 99284; J0780; J1885; J2270